=== PATIENT | male | born 1950 | race Hispanic/Latino ===

== ENCOUNTER 2017-09-27 14:56 | Outpatient (CLI) | payer OTHER, MEDICARE ==
--- NOTE | 2017-09-27 15:43 | RAD ---
RADIOGRAPH CHEST 2 VIEWS: Date: 09/27/2017 Time: 3:08 p.m. HISTORY: A 66-year-old male with cough, chest congestion, fever, and acute bronchitis (J20.9). COMPARISON: 01/05/2017 FINDINGS: There is a very elevated right hemidiaphragm. There is no air space density, pulmonary edema, pleura l effusion, or pneumothorax. Cardiac size is borderline enlarged. There is no interval change overa ll. IMPRESSION: 1. Chronically elevated right hemidiaphragm. 2. No evidence of pneumonia. ABEL [] POS: [facility]
== END 2017-09-27 14:57 | disposition home or self-care (01) ==
LOC: SCSRAD 14:56
PROVIDERS: ATTEND Family Medicine
DX: J20.9 Acute bronchitis, unspecified (principal); D89.89 Other specified disorders involving the immune mechanism, not elsewhere classified; J98.6 Disorders of diaphragm; Z92.25 Personal history of immunosuppression therapy; Z94.4 Liver transplant status; V42 Car occupant injured in collision with two- or three-wheeled motor vehicle
CPT/HCPCS: 71046

== ENCOUNTER 2018-02-08 11:22 | Outpatient (CLI) | payer OTHER, MEDICARE ==
[2018-02-08 13:19] LABS: #Eosinphils 0.1 thou/uL (0.0-0.7); #Lymphocytes 1.6 thou/uL (1.20-3.40); #Monocytes 0.6 thou/uL (0.11-0.59); #Neutrophils 3.8 thou/uL (1.40-6.50); %Basophils 0.7 % (0.0-1.0); %Eosinophils 1.9 % (0.0-10.0); %Lymphocytes 25.4 % (21.0-51.0); %Monocytes 9.9 % (0.0-10.0); %Neutrophils 62.1 % (42.0-75.0); Hemoglobin 14.9 g/dL (14.0-18.0); Mean Corpuscular HGB CONC 34.1 g/dL (32.0-36.0); Mean Corpuscular Hemoglobin 32.7 pg (27.0-31.0); Mean Corpuscular Volume 95.7 fL (78.0-98.0); Mean Platelet Volume 7.9 fL (7.4-10.4); Platelet Count 254 thou/uL (130-400); Red Blood Cell (RBC) Count 4.57 mill/uL (4.70-6.10); White Blood Cell (WBC) Count 6.2 thou/uL (4.8-10.8)
[2018-02-08 13:28] LABS: INR-International Normal Ratio 1.1; Prothrombin Time 13.8 SEC (12.0-14.7)
[2018-02-08 13:29] LABS: PTT 31.9 SEC (22.9-36.1)
--- NOTE | 2018-02-08 13:46 | RAD ---
TWO VIEWS CHEST: Date: 02-08-18 Provided Clinical History: Pre op. FINDINGS: Comparison 09-27-17. Cardiac and mediastinal silhouette is unchanged in appearance. Elevation of the right hemidiaphragm p ersists. Vascular calcification involves the aortic arch. No focal consolidation, pleural fluid or pn eumothorax apparent. IMPRESSION: Stable radiographic appearance of the chest. POS: [facility]
[2018-02-08 13:50] LABS: ALT (SGPT) 29 U/L (8-55); AST (SGOT) 30 U/L (5-34); Albumin 3.9 g/dL (3.4-4.8); Alkaline Phosphatase 115 U/L (40-150); Anion Gap 17 mmol/L (10-20); BUN (Urea Nitrogen) 33 mg/dL (8.4-25.7); Bilirubin, Total 0.7 mg/dL (0.2-1.2); Calc. Creatinine Clearance 0 mL/min (70-130); Calcium 9.5 mg/dL (7.8-10.44); Carbon Dioxide 22 mmol/L (23-31); Chloride 100 mmol/L (98-107); Estimated GFR-MDRD 43; Globulin 2.7 g/dL (2.4-3.5); Glucose 173 mg/dL (80-115); Lipase 23 U/L (8-78); Potassium 5.2 mmol/L (3.5-5.1); Protein, Total 6.6 g/dL (5.8-8.1); Sodium 134 mmol/L (136-145)
--- NOTE | 2018-02-08 17:46 | EKG ---
Test Reason : Blood Pressure : / mmHG Vent. Rate : 052 BPM Atrial Rate : 394 BPM P-R Int : 000 ms QRS Dur : 086 ms QT Int : 410 ms P-R-T Axes : 000 -17 262 degrees QTc Int : 381 ms Atrial fibrillation with slow ventricular response Low voltage QRS Cannot rule out Anterior infarct , age undetermined Abnormal ECG When compared with ECG of 14-APR-2007 08:28, Atrial fibrillation has replaced Sinus rhythm Minimal criteria for Anterior infarct are now Present Nonspecific T wave abnormality, worse in Inferior leads Confirmed by DR. Heriberto ESCALERA ([id number]) on 02/08/2018 5:45:44 PM Referred By: BRADEN Confirmed By:DR. Heriberto ESCALERA
== END 2018-02-08 11:23 | disposition home or self-care (01) ==
LOC: LABBT 11:22
PROVIDERS: ATTEND Internal Medicine Cardiovascular Disease
DX: Z01.818 Encounter for other preprocedural examination (principal); I47.2 Ventricular tachycardia
CPT/HCPCS: 71046; 80053; 83690; 85025; 85610; 85730; 93005; 93010

== ENCOUNTER 2018-02-09 05:47 | Day surgery (SDC) | payer OTHER, MEDICARE ==
[2018-02-08 13:31] VITALS: BMI 37.1
[2018-02-09 08:46] LABS: Cardiac Risk 3.4 (Less than 4.5)
[2018-02-09] MEDS ORDERED: Lidocaine 1% (PF) 30 ML VIAL ONE (11:12)
[2018-02-09 11:35] LABS: ALT (SGPT) 26 U/L (8-55); AST (SGOT) 25 U/L (5-34); Albumin 3.5 g/dL (3.4-4.8); Alkaline Phosphatase 110 U/L (40-150); Anion Gap 12 mmol/L (10-20); BUN (Urea Nitrogen) 32 mg/dL (8.4-25.7); Bilirubin, Total 0.8 mg/dL (0.2-1.2); Calc. Creatinine Clearance 68 mL/min (70-130); Calcium 9.4 mg/dL (7.8-10.44); Carbon Dioxide 25 mmol/L (23-31); Chloride 105 mmol/L (98-107); Estimated GFR-MDRD 46; Globulin 3.1 g/dL (2.4-3.5); Glucose 128 mg/dL (80-115); Potassium 4.7 mmol/L (3.5-5.1); Protein, Total 6.6 g/dL (5.8-8.1); Sodium 137 mmol/L (136-145)
[2018-02-09] MEDS ORDERED: Iopamidol 370 76% 100 ML VIAL ONE (11:43)
[2018-02-09] MEDS ORDERED: Diazepam 5 MG TAB ONE (11:58)
[2018-02-09] MEDS ORDERED: Fentanyl 100 MCG/2 ML VIAL ONE (13:38)
--- NOTE | 2018-02-09 16:06 | PRG ---
DATE OF SERVICE: 02/09/2018 SUBJECTIVE: The patient was seen and evaluated this morning prior to the procedure. His creatinine was 1.6. He decided to proceed with hydration prior to angiography. His followup creatinine was 1.5 . I also discussed drug-coated versus stent placement with his who is a nurse in addition to the patient. At this point, they prefer a drug-coated stent. They understand the risks of bleeding on aspirin, Plavix and anticoagulation therapy. Could certainly stop aspirin if needed. They do st ate after liver transplant, his liver has checked out very well. Otherwise, further recommendation p ending the above.
== END 2018-02-09 18:37 | disposition home or self-care (01) ==
LOC: CCL 05:47
PROVIDERS: ATTEND Internal Medicine Cardiovascular Disease
PROC: B2111ZZ Fluoroscopy of Multiple Coronary Arteries using Low Osmolar Contrast (ICD-10-PCS; principal; 2018-02-09)
PROC: 4A023N7 Measurement of Cardiac Sampling and Pressure, Left Heart, Percutaneous Approach (ICD-10-PCS; principal; 2018-02-09)
DX: I25.10 Atherosclerotic heart disease of native coronary artery without angina pectoris (principal); I47.2 Ventricular tachycardia; I48.1 Persistent atrial fibrillation; I10 Essential (primary) hypertension; E11.9 Type 2 diabetes mellitus without complications; E78.5 Hyperlipidemia, unspecified; E78.00 Pure hypercholesterolemia, unspecified; Z79.01 Long term (current) use of anticoagulants; Z79.4 Long term (current) use of insulin; Z79.83 Long term (current) use of bisphosphonates; Z79.899 Other long term (current) drug therapy; Z94.4 Liver transplant status
CPT/HCPCS: 36415; 71046; 76942; 80053; 80061; 83690; 85025; 85610; 85730; 93005; 93010; 93458; C1760; C1769; J1644; J2001; J3010

== ENCOUNTER 2018-06-08 06:49 | Day surgery (SDC) | payer OTHER, MEDICARE ==
[2018-06-07 13:04] VITALS: BMI 37.1
--- NOTE | 2018-06-08 10:47 | OP ---
DATE OF PROCEDURE: 06/08/2018 PROCEDURE PERFORMED: Colonoscopy with snare polypectomy. PREMEDICATION: Given by the Anesthesiology Department. PREPROCEDURE DIAGNOSIS: Colon screening. POSTPROCEDURE DIAGNOSES: 1. Transverse colon polyp, 1 cm. 2. Otherwise normal colon exam. DESCRIPTION OF PROCEDURE: Written consents were obtained prior to procedure. After adequate sedation, rectal exam performed was normal. Endoscope advanced to the cecum. The quality of the bowel prep was good. The cecum, ascending colon, hepatic flexure appeared normal. In the mid transverse, a 1 cm sessile polyp was noted. The polyp was removed with snare polypectomy by piecemeal method. The polyp was completely removed. The remainder of the transverse, splenic flexure, descending colon, and rectosigmoid colon appeared normal. Retroflexion did not show any abnormality. The patient tolerated the procedure well. ASSESSMENT: 1. 1 cm transverse polyp, status post polypectomy. 2. Otherwise normal colon exam. PLAN: Await biopsy results. Job ID: [id number]
[2018-06-08] MEDS ORDERED: Lidocaine 1% PF 5 ML VIAL ONE (14:54)
[2018-06-08] MEDS ORDERED: PROPOFOL 200 MG/20 ML VIAL ONE (14:54)
== END 2018-06-08 10:42 | disposition home or self-care (01) ==
LOC: SDC 06:49
PROVIDERS: ATTEND Internal Medicine Gastroenterology
PROC: 0DBL8ZX Excision of Transverse Colon, Via Natural or Artificial Opening Endoscopic, Diagnostic (ICD-10-PCS; principal; 2018-06-08)
DX: Z12.11 Encounter for screening for malignant neoplasm of colon (principal); D12.3 Benign neoplasm of transverse colon; I48.91 Unspecified atrial fibrillation; E11.9 Type 2 diabetes mellitus without complications; K74.60 Unspecified cirrhosis of liver; Z79.4 Long term (current) use of insulin; Z79.83 Long term (current) use of bisphosphonates; Z79.899 Other long term (current) drug therapy; Z94.4 Liver transplant status
CPT/HCPCS: 36416; 88305; J2001; J2704

== ENCOUNTER 2018-10-19 07:53 | Outpatient (CLI) | payer OTHER, MEDICARE ==
--- NOTE | 2018-10-19 08:36 | ULT ---
Bilateral renal ultrasound CLINICAL INDICATION: Elevated laboratory values. COMPARISON: None available. FINDINGS: Right kidney: There is no evidence of a renal mass, renal calculus, or hydronephrosis seen. The right kidney measures 11.4 cm x 5.9 cm. Left kidney: There is no evidence of a renal mass, calculus, hydronephrosis. The left kidney measures 10.9 cm x 5.2 cm. Urinary bladder: Incompletely distended limiting evaluation but is otherwise grossly normal in appear ance. Total urinary bladder volume is 68.8 mL on prevoid imaging. No post void residual is present. IMPRESSION: Normal-appearing bilateral kidneys without evidence of hydronephrosis. There is no post void residual .
== END 2018-10-19 07:54 | disposition home or self-care (01) ==
LOC: SCSULT 07:53
PROVIDERS: ATTEND Internal Medicine Nephrology
DX: N17.9 Acute kidney failure, unspecified (principal)
CPT/HCPCS: 76770

== ENCOUNTER 2018-10-28 08:08 | Outpatient (CLI) | payer OTHER, MEDICARE ==
--- NOTE | 2018-10-28 08:24 | RAD ---
RADIOGRAPH CHEST 2 VIEW: DATE: 10/28/2018 TIME: 8:16 AM HISTORY: 67-year-old male with dyspnea COMPARISON: 02/08/2019 FINDINGS: Again noted is the elevated right hemidiaphragm and associated, probably chronic right basilar subseg mental atelectasis. Cardiac size is at the upper limits of normal or slightly enlarged. Interstitial markings are diffusely prominent. This appears slightly greater than on the prior study, but the difference may or may not be technical. No acute consolidation. No large or moderate sized pleural effusion. No pneumothorax. IMPRESSION: 1. Chronically elevated right hemidiaphragm. 2. Borderline or mild cardiomegaly. 3. Prominent interstitial markings
== END 2018-10-28 08:09 | disposition home or self-care (01) ==
LOC: BICRAD 08:08
PROVIDERS: ATTEND Internal Medicine Cardiovascular Disease
DX: R06.02 Shortness of breath (principal); J98.4 Other disorders of lung; J98.6 Disorders of diaphragm
CPT/HCPCS: 71046

== ENCOUNTER 2018-11-28 18:00 | Outpatient (CLI) | payer OTHER, MEDICARE | END 2018-11-28 18:01 | disposition home or self-care (01) | LOC: SLEEPLAB 18:00 | PROVIDERS: ATTEND Internal Medicine Critical Care Medicine | DX: G47.33 Obstructive sleep apnea (adult) (pediatric) (principal) | CPT/HCPCS: 95806 ==

== ENCOUNTER 2018-12-15 08:31 | Outpatient (CLI) | payer OTHER, MEDICARE ==
--- NOTE | 2018-12-15 11:23 | MRI ---
MRI ABDOMEN WITHOUT CONTRAST AND MRCP: HISTORY: Abnormal liver function tests. Patient had liver transplant COMPARISON: None FINDINGS: There is artifact due to patient breathing during the exam.This reduces the sensitivity of the study. The patient is post cholecystectomy. No intra or extrahepatic biliary ductal dilatation is seen. No d efinite hepatic mass is seen. The spleen, pancreas, adrenal glands and right kidney are normal. Tiny cysts are seen in the left kid evelin. No ascites or lymphadenopathy is noted in the abdomen. No aneurysmal dilatation of the abdominal aorta is identified. The bone marrow signal is normal. There are degenerative changes in th e spine. Incidental note is made of a small right and tiny left pleural effusion. IMPRESSION: No significant findings are seen in the abdomen.
== END 2018-12-15 08:32 | disposition home or self-care (01) ==
LOC: SCSMRI 08:31
PROVIDERS: ATTEND Internal Medicine Hepatology
DX: Z48.23 Encounter for aftercare following liver transplant (principal); R94.5 Abnormal results of liver function studies
CPT/HCPCS: 74181

== ENCOUNTER 2018-12-15 19:30 | Outpatient (CLI) | payer OTHER, MEDICARE | END 2018-12-15 19:31 | disposition home or self-care (01) | LOC: SLEEPLAB 19:30 | PROVIDERS: ATTEND Internal Medicine Critical Care Medicine | DX: G47.33 Obstructive sleep apnea (adult) (pediatric) (principal); G47.31 Primary central sleep apnea; R06.3 Periodic breathing; I48.91 Unspecified atrial fibrillation | CPT/HCPCS: 95811 ==

== ENCOUNTER 2018-12-27 19:30 | Outpatient (CLI) | payer OTHER, MEDICARE | END 2018-12-27 19:31 | disposition home or self-care (01) | LOC: SLEEPLAB 19:30 | PROVIDERS: ATTEND Internal Medicine Critical Care Medicine | DX: G47.33 Obstructive sleep apnea (adult) (pediatric) (principal); E66.9 Obesity, unspecified; G47.31 Primary central sleep apnea; R06.3 Periodic breathing | CPT/HCPCS: 95811 ==

== ENCOUNTER 2019-01-13 11:29 | Outpatient (CLI) | payer OTHER, MEDICARE ==
--- NOTE | 2019-01-13 14:15 | RAD ---
PA AND LATERAL CHEST: 01/13/19 HISTORY: Cough and wheezing. COMPARISON: A 10/28/18 study. Heart size is enlarged. There is elevation of the right hemidiaphragm. Parenchymal changes in the rig ht base appears similar to the prior exam. Perihilar markings appear slightly more prominent suggesti ng some element of edema. IMPRESSION: Cardiomegaly with suggestion of some mild edema changes. POS: [facility]
== END 2019-01-13 11:30 | disposition home or self-care (01) ==
LOC: BICRAD 11:29
PROVIDERS: ATTEND Family Medicine
DX: R06.09 Other forms of dyspnea (principal); R06.2 Wheezing; I51.7 Cardiomegaly
CPT/HCPCS: 71046

== ENCOUNTER 2019-01-19 09:30 | Inpatient (IN) | payer OTHER, MEDICARE ==
[2019-01-19 10:12] LABS: #Basophils 0.1 thou/uL (0.0-0.2); #Eosinphils 0.3 thou/uL (0.0-0.7); #Lymphocytes 0.4 thou/uL (1.20-3.40); #Monocytes 0.5 thou/uL (0.11-0.59); %Basophils 1.2 % (0.0-1.0); %Lymphocytes 6.3 % (21.0-51.0); %Monocytes 7.4 % (0.0-10.0); %Neutrophils 80.2 % (42.0-75.0); Hemoglobin 10.3 g/dL (14.0-18.0); Mean Corpuscular HGB CONC 31.4 g/dL (32.0-36.0); Mean Platelet Volume 6.8 fL (7.4-10.4); Platelet Count 319 thou/uL (130-400); RBC Distribution Width 17.1 % (11.5-14.5); Red Blood Cell (RBC) Count 3.84 mill/uL (4.70-6.10); White Blood Cell (WBC) Count 6.2 thou/uL (4.8-10.8)
[2019-01-19 10:23] LABS: ALT (SGPT) 23 U/L (8-55); AST (SGOT) 37 U/L (5-34); Albumin 3.2 g/dL (3.4-4.8); Alkaline Phosphatase 236 U/L (40-150); Anion Gap 18 mmol/L (10-20); BUN (Urea Nitrogen) 41 mg/dL (8.4-25.7); Bilirubin, Total 0.5 mg/dL (0.2-1.2); CK (CPK) 33 U/L (30-200); Calc. Creatinine Clearance 0 mL/min (70-130); Calcium 10.1 mg/dL (7.8-10.44); Carbon Dioxide 26 mmol/L (23-31); Chloride 85 mmol/L (98-107); Estimated GFR-MDRD 31; Globulin 3.9 g/dL (2.4-3.5); Glucose 211 mg/dL (80-115); Lipase 21 U/L (8-78); Potassium 3.8 mmol/L (3.5-5.1); Protein, Total 7.1 g/dL (5.8-8.1); Sodium 125 mmol/L (136-145)
[2019-01-19] MEDS ORDERED: Furosemide 20 MG/2 ML VIAL ONE (10:37)
[2019-01-19] MEDS ORDERED: Nitroglycerin 2% Ointment 1 INCH/1 GM Packet ONE (10:37)
[2019-01-19] MEDS ORDERED: Aspirin Chewable 81 MG TAB ONE (10:37)
[2019-01-19 10:41] LABS: CKMB 1.7 ng/mL (0-6.6)
--- NOTE | 2019-01-19 11:05 | RAD ---
RADIOGRAPH CHEST 1 VIEW: Date: 01/19/2019. Time: 10:01 a.m. HISTORY: A 68-year-old male with dyspnea. COMPARISON: 01/13/2019. FINDINGS: There has been interval increase in opacification of the lower half to 2/3 of the right lung. Interv al worsening of silhouetting of the left hemidiaphragm with worsening aeration of the left base. Car diomegaly again noted. Pulmonary venous congestion. Central pulmonary interstitial edema. IMPRESSION: 1. Evidence for congestive heart failure: bilateral pleural effusions (right greater than left), car diomegaly, and pulmonary interstitial edema. 2. Large region of consolidation at right mid and lower lung zones: probably atelectasis, although i t is difficult to rule out pneumonia. 3. Interval worsening of aeration of left lung base. JN [] POS: [facility]
[2019-01-19 13:37] LABS: Troponin I 0.073 ng/mL (< 0.028)
[2019-01-19] MEDS ORDERED: Ondansetron ODT 4 MG TAB PO PRN (13:56)
[2019-01-19] MEDS ORDERED: Dextrose 5% in Water 1,000 ML IV PRN (14:01)
[2019-01-19] MEDS ORDERED: Dextrose 50% Abboject 50 ML SYRINGE SLOW IVP PRN (14:01)
[2019-01-19] MEDS ORDERED: Furosemide 100 MG/10 ML VIAL SLOW IVP SCH (14:15)
[2019-01-19] MEDS ORDERED: HumaLOG 300 UNITS/3 ML VIAL SC PRN (15:00)
[2019-01-19 16:36] LABS: Troponin I 0.073 ng/mL (< 0.028)
[2019-01-19] MEDS: Insulin Glargine 12 UNITS in Pre-Filled Syringe 1 EACH SC SCH (20:47)
[2019-01-19] MEDS: Apixaban 2.5 MG TAB PO SCH ×2 (20:49→21:00)
[2019-01-19] MEDS: Multivit, Therapeutic 1 TAB PO SCH (20:52)
[2019-01-19] MEDS: Magnesium Oxide 400 MG TAB PO SCH ×2 (20:52→20:53)
[2019-01-19] MEDS ORDERED: INSULIN DETEMIR 12 UNIT SQ SCH (21:00)
[2019-01-19] MEDS ORDERED: Tacrolimus 1 MG CAP PO SCH (21:00)
--- NOTE | 2019-01-19 21:20 | HP ---
HISTORY OF PRESENT ILLNESS: The patient is a 68-year-old male, who has known history of liver transplant. He has most recently been diagnosed of an atrial fibrillation. He has had a history now of some recurrent edema of his lower extremities. Over the last several months, his , who is an ICU nurse at [employer], has noted increasing edema, shortness of breath. He has been evaluated by Cardiology as well as Pulmonology. No source of the edema could really be identified. He has continued to have progressive edema with progressive dyspnea. He has been seen in my office on one occasion. It was recommended he try metolazone. This was done through the auspices of Nephrology Service. He really has not had much relief and his noticed that his edema seems to be increasing. He is becoming more short of breath with exertion. The patient denies any chest pain at this time. No fever has been noted. No productive coughing. He was seen and evaluated in the emergency room at [facility] today. This has revealed a chest x-ray consistent with bilateral pulmonary edema and bilateral pleural effusions noted as well as renal insufficiency as well as a significant elevated BNP. He has received one dose of Lasix here in the emergency room. As noted, he has a history of previous liver transplant. His liver status has been deemed to be normal by his transplant doctors. There is no evidence of any rejection. He also has a history of atrial fibrillation, type 2 diabetes mellitus. He notes no other medical complaints. No fever has otherwise been noted. It is noted he had a renal ultrasound in September 2018, which showed no evidence of any hydronephrosis. He notes no urinary issues at this time. ALLERGIES: HE HAS NO KNOWN ALLERGIES. CURRENT MEDICATIONS: 1. Janumet one tablet p.o. b.i.d. 2. Prograf b.i.d. 3. Crestor 10 mg daily. 4. Magnesium oxide 400 mg t.i.d. 5. Lisinopril 10 mg daily. 6. Levemir insulin 12 units q.p.m. and 7 units q.a.m. 7. NovoLog FlexPen 8 units t.i.d. 8. Lasix 40 mg daily. 9. Calcium carbonate one tablet p.o. b.i.d. 10. Eliquis 5 mg b.i.d. 11. Amlodipine 5 mg daily. 12. Alendronate. PAST MEDICAL HISTORY: Significant for the above-noted liver transplant. He has a history of atrial fibrillation. He also has a history of a cardiomyopathy documented. PAST SURGICAL HISTORY: Positive for as I said that is noted from liver transplant, right total knee replacement. SOCIAL AND PERSONAL HISTORY: He is retired. He does not smoke. Does not drink alcohol at this time. PHYSICAL EXAMINATION: VITAL SIGNS: His blood pressure is 113/74, pulse is 80 and regular, temperature 98.6, O2 saturations 88% on room air. GENERAL: He is alert and active, does not appear to be in any significant distress, although he does sit in a chair. HEENT: Normocephalic. Sclerae and conjunctivae clear. NECK: Supple. Full range of motion. No masses. No bruits are auscultated. LUNGS: Bilateral breath sounds somewhat decreased on the right than on the left. HEART: Reveals an irregularly irregular rhythm without murmurs, gallops, or rubs. ABDOMEN: Soft. Bowel sounds are present and active. There is no evidence of any ascitic fluid. EXTREMITIES: Show 1 to 2+ edema, equal bilaterally. The edema extends up to the knees. IMAGING DATA: Chest x-ray shows evidence of congestive heart with bilateral pleural effusions, right greater than left. LABORATORY DATA: Hemoglobin 10.3, hematocrit 33.0, white blood count 6.2. Sodium 125, potassium 3.8, chloride 85, CO2 of 26, BUN 41, creatinine 2.11. Troponin 0.078 and 0.073. BNP 2749.8. IMPRESSION: This is a 68-year-old male, who has components of congestive heart failure with elevated BNP, bilateral pleural effusions that seems not to be responding to outpatient therapy of diuresis. PLAN: 1. The patient will be admitted. 2. Cardiac consult. 3. Renal consult. 4. We will give 80 mg of IV Lasix while in the ER today. Further treatment recommendations per specialty consult. Job ID: [id number]
[2019-01-20 05:13] LABS: #Eosinphils 0.4 thou/uL (0.0-0.7); #Lymphocytes 0.5 thou/uL (1.20-3.40); #Monocytes 0.6 thou/uL (0.11-0.59); #Neutrophils 5.1 thou/uL (1.40-6.50); %Basophils 0.2 % (0.0-1.0); %Eosinophils 6.6 % (0.0-10.0); %Lymphocytes 7.9 % (21.0-51.0); %Monocytes 9.2 % (0.0-10.0); %Neutrophils 76.1 % (42.0-75.0); Mean Corpuscular Hemoglobin 28.8 pg (27.0-31.0); Mean Corpuscular Volume 87.2 fL (78.0-98.0); Mean Platelet Volume 6.6 fL (7.4-10.4); Platelet Count 300 thou/uL (130-400); RBC Distribution Width 16.3 % (11.5-14.5); Red Blood Cell (RBC) Count 3.48 mill/uL (4.70-6.10); White Blood Cell (WBC) Count 6.8 thou/uL (4.8-10.8)
[2019-01-20 05:33] LABS: Anion Gap 15 mmol/L (10-20); BUN (Urea Nitrogen) 44 mg/dL (8.4-25.7); Calc. Creatinine Clearance 49 mL/min (70-130); Calcium 9.9 mg/dL (7.8-10.44); Carbon Dioxide 27 mmol/L (23-31); Chloride 85 mmol/L (98-107); Estimated GFR-MDRD 35; Glucose 120 mg/dL (80-115); Potassium 3.2 mmol/L (3.5-5.1); Sodium 124 mmol/L (136-145)
[2019-01-20] MEDS: Apixaban 2.5 MG TAB PO SCH (08:31)
[2019-01-20] MEDS: Potassium Chloride 20 MEQ TAB PO SCH (08:31)
[2019-01-20] MEDS: Amlodipine 5 MG TAB PO SCH (08:32)
[2019-01-20] MEDS: Magnesium Oxide 400 MG TAB PO SCH ×3 (08:32→20:21)
[2019-01-20] MEDS: Insulin Glargine 7 UNITS in Pre-Filled Syringe 1 EACH SC SCH (08:37)
[2019-01-20] MEDS: Calcitriol 0.25 MCG CAP PO SCH (08:37)
[2019-01-20] MEDS ORDERED: INSULIN DETEMIR 7 UNIT SQ SCH (09:00)
[2019-01-20] MEDS ORDERED: Tacrolimus 1 MG CAP PO SCH (09:00)
[2019-01-20] MEDS ORDERED: Lisinopril 10 MG TAB PO SCH (09:00)
[2019-01-20] MEDS: Albumin 25% 25 GM/100 ML BOT IVPB SCH ×3 (11:15→21:25)
[2019-01-20] MEDS ORDERED: Sodium Chloride 0.9% 500 ML IV SCH (11:15)
--- NOTE | 2019-01-20 13:41 | CON ---
DATE OF CONSULTATION: 01/20/2019 SERVICE: Pulmonary Medicine. REASON FOR CONSULTATION: Abnormal chest x-ray. HISTORY OF PRESENT ILLNESS: The patient is a 68-year-old white male with past medical history significant for chronic renal failure. He ultimately got a kidney transplanted. He is on chronic suppressive therapy. Over the past 4 to 6 months, the patient has had progressive swelling of the lower extremities, resulting in increasing dyspnea that limits his activity. He got to the point where he is very difficult to manage in the outpatient setting, and the patient was asked to present to the emergency department to see whether or not we could facilitate fluid removal on the inpatient setting. He denies any current chills or fevers. He is not coughing up any purulent material. He recently got diagnosed with sleep apnea and underwent a titration study suggesting that he would benefit from BiPAP with a backup. He has been on this for about 14 days now. Since being on this BiPAP, he has had a profound improvement in mentation, though the lower extremity swelling and shortness of breath are still progressed. PAST MEDICAL HISTORY: 1. History of cirrhosis, status post liver transplantation. 2. Atrial fibrillation. 3. Chronic systolic heart failure. 4. Obstructive sleep apnea. 5. Central sleep apnea with Ra-Gallagher respiratory pattern of breathing. 6. Nephrotic-range proteinuria. PAST SURGICAL HISTORY: 1. Liver transplantation. 2. Right total knee replacement. SOCIAL HISTORY: The patient does not use any current alcohol, tobacco, or illicit drug use. He is currently retired. He has no exposure to chemicals, dust, asbestos, or tuberculosis. FAMILY HISTORY: Noncontributory. ALLERGIES: NO KNOWN DRUG ALLERGIES. MEDICATIONS: List of his inpatient medications was reviewed. No specific updates were made at this time. REVIEW OF SYSTEMS: General; head, ears, eyes, nose, throat; cardiovascular; respiratory; GI; ; musculoskeletal; neurologic; and skin are negative except as mentioned is the HPI. PHYSICAL EXAMINATION: VITAL SIGNS: Afebrile, pulse 79, blood pressure 118/70, respirations 18, and saturation 96% with 3 L nasal cannula delivered via BiPAP. HEENT: Normocephalic and atraumatic. Sclerae white. Conjunctivae pink. Oral mucosa is moist without lesions. LUNGS: Reduced air entry on the right. There is no prolonged expiratory phase. Crackles are identified. HEART: Normal rate and regular. ABDOMEN: Soft. Distended. Bowel sounds are present. MUSCULOSKELETAL: No cyanosis or clubbing. There is diffuse 3 to 4+ pitting in the bilateral lower extremities. NEUROLOGIC: Grossly nonfocal. LABORATORY DATA: Sodium 124, potassium 3.2. Creatinine 1.93. Basic metabolic profile is otherwise unremarkable. Troponin is stable at 0.073, BNP 2700. Albumin 3.2 and lipase 21. Liver function studies are essentially unremarkable otherwise. Most recent coags showed a normal INR of 1.1. IMAGING: Chest x-ray demonstrates signs of significant volume overload. There are bilateral pleural effusions, but the right side appears to be more impressive. ASSESSMENT: 1. Acute on chronic hypoxic respiratory failure. 2. Pleural effusions, bilateral. 3. Obstructive sleep apnea/central sleep apnea, much improved with noninvasive therapy. 4. Pulmonary hypertension. 5. Acute on chronic systolic heart failure. 6. Atrial fibrillation. 7. Nephrotic syndrome. DISCUSSION AND PLAN: We can launch into a pulmonary hypertension investigation. At this point, I cannot do a V/Q scan because the patient's chest x-ray is significantly abnormal. We will work on diuresing him to euvolemia. I will start with the serologies for PH. I will talk to Mr. Gant and his (Dalila) about the risks and benefits of pursuing a thoracentesis to see if we can facilitate fluid removal and improve his breathing. If they are minimal, I think it would be reasonable to do for diagnostic and therapeutic purposes. He is currently on Eliquis, and for an elective procedure, I would prefer to hold this for a couple of days. Pulmonary will continue to follow the patient intermittently while he remains in the hospital. 70 minutes have been devoted to this patient in various activities. I personally reviewed all imaging studies and laboratory data noted within this document. For fifty percent of this time, I was interacting with the patient at the bedside or coordinating care with the care team. For the remainder of the time I was immediately available to the patient in the hospital unit. Job ID: [id number] MTDD
--- NOTE | 2019-01-20 13:51 | PRG ---
DATE OF SERVICE: 01/20/2019 SUBJECTIVE: Mr. Gant is resting well. He still complains of edema to his feet. He notes no chest pain. OBJECTIVE: VITAL SIGNS: Temperature 98.6, O2 saturations 95% on 3 L, BP 130/66. LUNGS: Reveal decreased breath sounds at each base. HEART: Reveals an irregularly irregular rhythm without murmur, gallops, or rubs. LABORATORY DATA: Hemoglobin 10.0, hematocrit 38.4. Sodium 124, potassium 3.2, chloride 85, CO2 of 27, BUN 44, creatinine 1.93. He is in some negative fluid balance as noted by his I and O. IMPRESSION: 1. Pulmonary edema. 2. Atrial fibrillation. 3. Status post hepatic transplant. PLAN: We will await further input from Cardiology and Nephrology regarding his edema status. Job ID: [id number]
--- NOTE | 2019-01-20 14:25 | CON ---
DATE OF CONSULTATION: HISTORY OF PRESENT ILLNESS: Mr. Gant is a 68-year-old white male with known history of status post liver transplant secondary to fatty liver, chronic renal failure, and was admitted due to progressive azotemia. Shortness of breath has been worsening. He has been unresponsive to his a diuretic regimen of Lasix 80 mg p.o. b.i.d. with metolazone. For that reason, he was admitted for further evaluation of the shortness of breath. We are being consulted for his acute kidney injury/chronic renal failure. REVIEW OF SYSTEMS: Positive for chronic leg edema. Positive for progressive shortness of breath on exertion. No chest pain. No diarrhea. No constipation. No productive cough. No fever or chills. No syncopal episode. No abdominal pain. Appetite and energy level are decreased. No gross hematuria. No dysuria. No urinary frequency. No productive cough. HOME MEDICATIONS: Included: 1. Janumet 50/100 mg b.i.d. 2. Alendronate 70 mg q. week. 3. Prograf 1 mg p.o. b.i.d. 4. Lisinopril 10 mg tablet once a day. 5. Norvasc 5 mg once a day. 6. Eliquis 5 mg p.o. b.i.d. 7. Multivitamin daily. 8. Calcium with vitamin D 1 tab b.i.d. 9. Calcitriol 0.25 mcg daily. 10. Crestor 10 mg at bedtime. 11. Magnesium 500 mg at bedtime. 12. Lasix 80 mg p.o. b.i.d. 13. Zaroxolyn 5 mg daily. 14. Novolin R as directed. 15. Lantus as directed. PAST MEDICAL HISTORY: 1. Status post liver failure secondary to fatty liver, status post liver transplant. 2. Status post acute kidney injury. 3. Type 2 diabetes mellitus. 4. Hypertension. 5. Chronic AFib. 6. (?) Degenerative joint disease. PAST SURGICAL HISTORY: Status post liver transplant 11 years ago, status post cardiac cath, status post colonoscopy, status post bilateral hip replacement, status post right knee replacement, status post abdominal hernia repair, status post right inguinal hernia repair, status post upper GI endoscopy with ERCP, and status post bilateral cataract surgery. SOCIAL HISTORY: He is , lives in [place]. Two children. 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 Chronic tobacco use for 10 years. Status post blood transfusion. Education, high school. No smoking. No alcohol intake. No IV drug abuse. FAMILY HISTORY: No family history of ESRD. ALLERGIES: NONE. TRAUMA: None. IMMUNIZATIONS: Up-to-date. HOSPITALIZATIONS: Please see past medical history. PHYSICAL EXAMINATION: VITAL SIGNS: Blood pressure is 118/70, heart rate 67, respiratory rate 18, temperature 98.6, and pulse ox 95%. GENERAL: Noted to be awake, alert, supine, not in overt distress, morbidly obese. SKIN: Adequate turgor. HEENT: Pinkish conjunctivae. Anicteric sclerae. No neck mass. No carotid bruits. No JVD. CHEST: No deformities. LUNGS: Clear breath sounds. No wheezing. No crackles. HEART: Normal sinus rhythm. No murmur. No gallops. No rubs. ABDOMEN: Globular, soft, nontender. No masses. EXTREMITIES: Positive for edema. NEUROLOGIC: Awake, oriented to 3 spheres. Moving all extremities. No tremors. No asterixis. No ataxia. DIAGNOSTIC DATA: Laboratories of 01/20/2019: White count 6.8, hemoglobin 10. Sodium 124, potassium 3.2, chloride 85, carbon dioxide 27, BUN 44, creatinine 1.93, glucose 120, and calcium 9.9. Troponin I 0.073. BNP is 2749. Chest x-ray of 01/19/2019 shows interval worsening of aeration at the left lung base. The lower half of the right lung showed interval increase in opacification. There is evidence of CHF. ASSESSMENT AND PLAN: 1. Progressive shortness of breath. The patient is actually not responsive to maximal doses of his Lasix. Due to the congestive heart failure, we will continue with Lasix 80 mg IV q.12. In addition, I have started albumin infusion 25 g IV q.6 to enhance the efficacy of the Lasix as well as to maintain his intravascular volume while he is being diuresed. 2. I have not excluded the possibility of adding Zaroxolyn with this patient. 3. Acute kidney injury/chronic renal failure. Creatinine 1.9. He is actually slightly improved compared to a few weeks ago. This is a reflection of the current diuretic regimen. There is no indication for any dialytic intervention. 4. Status post liver transplant, currently on Prograf. 5. Congestive heart failure/decreased ejection fraction. Cardiology has been consulted. In addition, pulmonary consult with Dr. Alfaro has also been done due to the progressive shortness of breath and finding of right bilateral pleural effusion. Overall, agree with current management. Job ID: [id number]
[2019-01-20] MEDS: Furosemide 100 MG/10 ML VIAL SLOW IVP SCH (14:59)
--- NOTE | 2019-01-20 16:49 | CON ---
DATE OF CONSULTATION: REASON FOR CONSULTATION: Shortness of breath, lower extremity edema. HISTORY OF PRESENT ILLNESS: Mr. Gant is a very pleasant 68-year-old gentleman whom I have seen and evaluated in the past. He has a previous history of liver transplant in addition to severe pulmonary hypertension and severe obstructive sleep apnea. He also has developed renal insufficiency. He recently developed worsening lower extremity edema that was not responsive to Lasix. He also developed shortness of breath. He has been using his CPAP over the last several weeks. No chest pain or pressure noted. He did receive a dose of Lasix yesterday with minimal response. PAST MEDICAL HISTORY: Hypertension, atrial fibrillation, nonsustained VT, hyperlipidemia, diabetes mellitus, bradycardia, [id number] CAD, obstructive sleep apnea, liver transplant, severe pulmonary hypertension, hernia repair, vasectomy, hip replacement, right total knee surgery, and cataract removal. HOME MEDICATIONS: Include: 1. Calcarb. 2. Calcitriol. 3. Janumet. 4. Lasix. 5. Alendronate. 6. Norvasc. 7. Multivitamin. 8. Humalog. 9. Crestor. 10. Lantus. 11. Magnesium. 12. Prograf. 13. Eliquis. 14. Tylenol. SOCIAL HISTORY: No current tobacco or alcohol use. ALLERGIES: NONE. REVIEW OF SYSTEMS: A 10-point review of systems is reviewed and as above, otherwise negative. PHYSICAL EXAMINATION: GENERAL: He is currently wearing CPAP. VITAL SIGNS: Blood pressure 118/70, pulse 79, and temperature afebrile. NEUROLOGIC: The patient is alert and oriented x3 with no focal neurologic deficits. HEENT: Sclerae without icterus. Mouth has moist mucous membranes with normal pallor. NECK: No JVD. Carotid upstroke brisk. No bruits bilaterally. LUNGS: Crackles noted bilaterally. BACK: No scoliosis or kyphosis. CARDIAC: Regular rate and rhythm with normal S1 and S2. No S3 or S4 noted. No significant rubs, murmurs, thrills, or gallops noted throughout the precordium. PMI is not displaced. There is no parasternal heave. ABDOMEN: Soft, nontender, nondistended. No peritoneal signs present. No hepatosplenomegaly. No abnormal striae. EXTREMITIES: 2+ to 3+ pitting edema. SKIN: No gross abnormalities. PERTINENT LABORATORY DATA: Hemoglobin 10.0 and hematocrit 30.4. Creatinine 1.93. Peak troponin 0.073. BNP of 2749. IMPRESSION: 1. Lower extremity edema. 2. [id number]-[id number] cardiomyopathy. 3. Liver transplant. 4. Severe pulmonary hypertension. 5. Acute on chronic renal insufficiency. RECOMMENDATIONS: Lower extremity edema, likely multifactorial. He does have a history of [id number] cardiomyopathy and left ventricular ejection fraction of 40%. He does have crackles noted bilaterally. He also has severe pulmonary hypertension and recently, has received treatment for sleep apnea. His albumin level is also on the low end. We will leave Lasix at the discretion of Dr. Israel Willis given renal insufficiency. His GFR is 35. He did receive 80 mg of Lasix. May consider Zaroxolyn. May also consider low-dose Dobutrex if he does not diurese overnight. We will follow. Job ID: [id number]
[2019-01-20 17:57] LABS: Creatinine, Urine 77.33 mg/dL (63-166)
[2019-01-20] MEDS: Insulin Regular 300 UNITS/3 ML VIAL SC PRN (18:25)
[2019-01-20] MEDS: Multivit, Therapeutic 1 TAB PO SCH (20:21)
[2019-01-20] MEDS: Tacrolimus 1 MG CAP PO SCH ×2 (20:21→20:24)
[2019-01-20] MEDS: Rosuvastatin 10 MG TAB PO SCH (20:21)
[2019-01-20] MEDS: Insulin Glargine 12 UNITS in Pre-Filled Syringe 1 EACH SC SCH (20:22)
[2019-01-21] MEDS: Albumin 25% 25 GM/100 ML BOT IVPB SCH ×2 (05:08→11:54)
[2019-01-21] MEDS: Furosemide 100 MG/10 ML VIAL SLOW IVP SCH ×3 (05:08→21:22)
[2019-01-21 07:26] LABS: INR-International Normal Ratio 1.7
[2019-01-21 07:27] LABS: PTT 47.8 SEC (22.9-36.1)
[2019-01-21] MEDS ORDERED: Potassium Chloride 20 MEQ TAB PO SCH (07:30)
[2019-01-21 07:39] LABS: Anion Gap 17 mmol/L (10-20); BUN (Urea Nitrogen) 50 mg/dL (8.4-25.7); Calc. Creatinine Clearance 49 mL/min (70-130); Calcium 10.5 mg/dL (7.8-10.44); Carbon Dioxide 26 mmol/L (23-31); Chloride 85 mmol/L (98-107); Estimated GFR-MDRD 34; Glucose 142 mg/dL (80-115); Magnesium 2.5 mg/dL (1.6-2.6); Potassium 3.3 mmol/L (3.5-5.1); Sodium 125 mmol/L (136-145)
[2019-01-21 07:57] LABS: HIV (1/2) Antibody/Antigen Non-Reactive (NonReactive); HIV 1/2 INDEX 0.15 S/CO (<1.00)
[2019-01-21] MEDS ORDERED: Metolazone 2.5 MG TAB PO SCH (08:30)
[2019-01-21] MEDS: Potassium Chloride 20 MEQ TAB PO SCH (08:35)
[2019-01-21] MEDS: Metolazone 2.5 MG TAB PO SCH (08:35)
[2019-01-21] MEDS: Amlodipine 5 MG TAB PO SCH (08:36)
[2019-01-21] MEDS: Calcitriol 0.25 MCG CAP PO SCH (08:36)
[2019-01-21] MEDS: Tacrolimus 1 MG CAP PO SCH ×2 (08:37→20:14)
--- NOTE | 2019-01-21 08:51 | RAD ---
Exam: Chest one view HISTORY:Fluid overload Comparison: 01/19/2019 FINDINGS: Cardiac silhouette:Cardiomegaly Aorta: Unremarkable Pulmonary vessels: Prominent Costophrenic angles: Persistent bilateral pleural effusions, right greater than left LUNGS: Persistent lung parenchymal opacification. Pneumothorax: None Osseous abnormalities: None IMPRESSION: Worsening congestive heart failure.
[2019-01-21] MEDS: Insulin Glargine 7 UNITS in Pre-Filled Syringe 1 EACH SC SCH (08:53)
--- NOTE | 2019-01-21 09:11 | PRG ---
DATE OF SERVICE: 01/21/2019 PRIMARY CARE PHYSICIAN: Dr. Benjie Juan. SUBJECTIVE: The patient continues to feel short of breath with increased edema of his lower extremity and throughout his body, had been followed by Cardiology, Nephrology and Pulmonary. Dr. Redding wanted to transfer him to the ICU due to increased shortness of breath. OBJECTIVE: VITAL SIGNS: Temperature 98, pulse 77, respirations 20, blood pressure 126/79, pulse ox is 93% on 3 L nasal cannula. GENERAL: He is awake and alert. He does appear anxious. Positive for conversational dyspnea. NECK: Supple. HEART: Regular rate and rhythm. LUNGS: With rales at the bases. Decreased breath sounds. ABDOMEN: Obese. EXTREMITIES: With 3 to 4+ edema. LABORATORY DATA: Sodium 125, potassium 3.3, chloride 85, CO2 of 26, BUN and creatinine 50 and 1.94 with a GFR of 34, serum glucose of 142, calcium 10.5 and magnesium of 2.5. Accu-Cheks 165, 254, 191. IMAGING: Chest x-ray from 2 days ago reveals evidence of congestive heart failure with bilateral pleural effusions. Cardiomegaly and interstitial edema. Large consolidation of the right, mid and lower lung zones. Worsening aeration of the left base. ASSESSMENT AND PLAN: This is a 68-year-old gentleman, status post liver transplant, admitted for increased edema, increased shortness of breath, acute- on-chronic kidney failure and congestive heart failure. 1. Congestive heart failure. Continuing diuresis. Cardiology is adding Zaroxolyn since he is on the maximum dose of Lasix for his acute on chronic systolic heart failure. 2. Nephrotic syndrome. Appreciate Dr. Willis and Nephrology team. He is getting IV albumin. 3. Status post liver transplant, on Prograf for anti-rejection medications. 4. Severe pulmonary hypertension, receiving CPAP at night. May benefit from BiPAP during the day, if worsens. 5. Type 2 diabetes. We will continue insulin sliding scale. Job ID: [id number]
[2019-01-21 09:19] LABS: ALT (SGPT) 16 U/L (8-55); AST (SGOT) 20 U/L (5-34); Albumin 4.3 g/dL (3.4-4.8); Alkaline Phosphatase 235 U/L (40-150); Bilirubin, Direct 0.6 mg/dL (0.1-0.3); Protein, Total 7.4 g/dL (5.8-8.1)
--- NOTE | 2019-01-21 10:19 | ULT ---
EXAM: Bilateral lower extremity venous duplex: Deep veins evaluated with color Doppler, spectral analysis, and compression. INDICATIONS: Bilateral lower extremity pain and edema. FINDINGS: Deep veins interrogated include common femoral vein, femoral vein, popliteal vein, and post erior tibial vein. These veins show normal compression and blood flow. No evidence of DVT. Hypoechoic focus of left popliteal fossa approximating 5 cm, indicative of complex Montanez cyst. Nonspecific waveform irregularity is noted. IMPRESSION: Negative Bilateral venous duplex exam. 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 Correlate clinically.
--- NOTE | 2019-01-21 10:36 | PRG ---
DATE OF SERVICE: 01/21/2019 HISTORY OF PRESENT ILLNESS: This is a 68-year-old gentleman, status post to the ICU after start having more difficulty breathing, shortness of breath, generalized anasarca. 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 The patient is status post liver transplant secondary to fatty liver, chronic renal failure. He is admitted for progressive azotemia. X-ray today shows bilateral pleural effusion, left greater than right. Given some additional Lasix. Started on metolazone. He is now having an ultrasound done of his leg. He is already on anticoagulation. OBJECTIVE: VITAL SIGNS: Saturations are 92% on 2 L, blood pressure 113/76, pulse 64, respiratory rate 18. GENERAL: 2+ ankle edema. CHEST: Decreased breath sounds. No wheezing. CARDIAC: Normal S1 and S2. No gallops. ABDOMEN: Soft. No masses. LABORATORY DATA: BUN and creatinine are 50 and 1.94. Sodium 125, glucose 165, calcium 10.5, alkaline phos slightly elevated. IMPRESSION: Progressive respiratory failure secondary to congestive heart failure complicated by fluid overload and renal failure, sleep apnea, status post liver transplant. PLAN: I am concerned if we tap his left chest going to come right back. Best option is to try diuresing as much as possible. Continue CPAP from home. Empiric neb treatments. We will follow up. He is a full code. One-half hour of critical time. Job ID: [id number]
[2019-01-21 11:26] LABS: CO2 Tension 38.7 mmHg (35.0-45.0); Calcium, Ionized 1.19 mmol/L (1.12-1.30); Carboxyhemoglobin (COHb) 1.4 gm% (0.0-3.0); Hemoglobin (Hb) 10.5 g/dL (14.0-18.0); pH, Arterial 7.46 (7.35-7.45)
[2019-01-21 11:30] LABS: O2 Tension (PaO2) 53.2 mmHg (> 70.0)
[2019-01-21 11:31] LABS: ALV-art Gradient 183.625 (0-20); Puncture Site L.R.
--- NOTE | 2019-01-21 12:08 | CON ---
DATE OF CONSULTATION: 01/21/2019 HISTORY OF PRESENT ILLNESS: Mr. Gant was recently transferred to the ICU due to increased shortness of breath and edema. He has had very little diuresis after 80 mg of IV Lasix. He has also been on Zaroxolyn. Echo is currently pending. PHYSICAL EXAMINATION: GENERAL: Anasarca. VITAL SIGNS: Current vital signs; blood pressure 113/71, pulse 67, and temperature afebrile. NEUROLOGIC: The patient is alert and oriented x3 with no focal neurologic deficits. HEENT: Sclerae without icterus. Mouth has moist mucous membranes with normal pallor. NECK: No JVD. Carotid upstroke brisk. No bruits bilaterally. LUNGS: Clear to auscultation with unlabored respirations. BACK: No scoliosis or kyphosis. CARDIAC: Irregularly irregular. ABDOMEN: Soft, nontender, nondistended. No peritoneal signs present. No hepatosplenomegaly. No abnormal striae. EXTREMITIES: pitting edema. SKIN: No gross abnormalities. LABORATORY DATA: Pertinent labs; hemoglobin 10.0. Creatinine 1.94, which is unchanged from 1.93 on 01/20/2019. Total output -155 mL. IMPRESSION: 1. Anasarca. 2. Combined congestive heart failure, likely related to systolic dysfunction in addition to severe pulmonary hypertension. 3. Previous liver transplant. 4. Chronic atrial fibrillation. RECOMMENDATIONS: At this point, continue current treatment. Nephrology is following closely. We will review echo once it has been performed. We will add low-dose for inotropic support. The patient is currently receiving metolazone in addition to Lasix. Job ID: [id number]
[2019-01-21] MEDS: DOBUTamine 500 mg/250 ml 250 ML IVPB SCH (12:28)
[2019-01-21 15:47] LABS: Urine Total Volume 600 mL (250-2400)
--- NOTE | 2019-01-21 16:09 | PRG ---
DATE OF SERVICE: 01/21/2019 SERVICE: Nephrology. SUBJECTIVE: A 68-year-old male patient with multiple comorbidities including end-stage liver disease, status post liver transplant; COPD; chronic atrial fibrillation, admitted with worsening shortness of breath and generalized edema. The patient was noted to be resistant to oral Lasix and was started on IV Lasix with no significant diuresis in the last 24 hours. He has been moved to the ICU due to worsening shortness of breath. OBJECTIVE: VITAL SIGNS: Temperature 97.5, pulse 77, respiratory rate 22, SpO2 93%, and blood pressure is 113/76. GENERAL: Chronically ill-looking, obese male, in [id number] respiratory distress. VITAL SIGNS: Afebrile, anicteric, acyanotic. HEENT: Normocephalic, atraumatic. CARDIOVASCULAR: Irregular rhythm and rate. RESPIRATORY: Fair air entry with scattered crackles and some transmitted sounds. No obvious rhonchi were appreciated. Work of breathing is increased. GI: Abdomen is obese, soft, nontender, nondistended with normal bowel sounds. EXTREMITIES: Moderate bilateral leg edema noted. EYEGLASS ASSEMBLER: Conscious, alert, and oriented x3 with appropriate mental status. DIAGNOSTIC DATA: CMP today showed sodium 125, potassium 3.3, chloride 85, CO2 26, BUN 50, creatinine 1.94, glucose 142, calcium 10.5, total bilirubin 1.0, AST 20, ALT 16, alkaline phosphatase 235, total protein 7.4, albumin 4.3. Magnesium is 2.5. Random urine protein collected yesterday was 196 with random urine creatinine of 77 given [facility], i.e., urine protein-creatinine ratio of 2.5 g/g of creatinine. Chest x-ray showed a worsening congestion of both lungs as well as persistent bilateral pleural effusion, right greater than left. ASSESSMENT: 1. Acute respiratory failure with hypoxia due to acute cardiac decompensation with fluid overload. 2. Acute on chronic combined systolic and diastolic heart failure. 3. Acute kidney injury: Most likely hemodynamic in etiology with cardiorenal syndrome being the most important. 4. Anasarca: Multifactorial from liver disease to cardiac as well as acute kidney injury and hypoalbuminemia. 5. Severe pulmonary hypertension of unclear etiology. 6. Bilateral leg edema: Most likely due to cardiac decompensation and liver pathology. Deep venous thrombosis is a concern given history of pulmonary hypertension of unclear etiology. 7. Status post liver transplant. Given elevation of alkaline phosphatase, rejection is a concern. Congestive hepatopathy from acute cardiac decompensation may be the culprit as well. PLAN: 1. Agree with transferring the patient to the ICU. 2. We will escalate diuretic therapy with increasing Lasix to 80 mg q.8 hours as well as with the addition of metolazone. We will also get Prograf level since toxicity can lead to CHLOE. 3. Echocardiogram is awaited to reassess cardiac function. Cardiology is following and inotropic therapy is considered. 4. We will monitor volume status as well as renal function closely. Other treatment as per other specialties. Job ID: [id number]
[2019-01-21 16:34] LABS: Protein - 24 Hr 1842 mg/24 hr (Less than 300); Protein, Urine 307 mg/dL (1-14)
[2019-01-21] MEDS: Rosuvastatin 10 MG TAB PO SCH (20:13)
[2019-01-21] MEDS: Multivit, Therapeutic 1 TAB PO SCH (20:13)
[2019-01-21] MEDS: Insulin Glargine 12 UNITS in Pre-Filled Syringe 1 EACH SC SCH (20:15)
[2019-01-21] MEDS: Insulin Regular 300 UNITS/3 ML VIAL SC PRN (21:23)
[2019-01-22] MEDS: DOBUTamine 500 mg/250 ml 250 ML IVPB SCH ×2 (01:08→17:36)
[2019-01-22 04:12] LABS: #Basophils 0.1 thou/uL (0.0-0.2); #Eosinphils 0.2 thou/uL (0.0-0.7); #Lymphocytes 0.3 thou/uL (1.20-3.40); #Monocytes 0.6 thou/uL (0.11-0.59); #Neutrophils 6.2 thou/uL (1.40-6.50); %Basophils 1.3 % (0.0-1.0); %Eosinophils 2.9 % (0.0-10.0); %Lymphocytes 4.5 % (21.0-51.0); %Monocytes 8.5 % (0.0-10.0); %Neutrophils 82.9 % (42.0-75.0); Hemoglobin 9.8 g/dL (14.0-18.0); Mean Corpuscular HGB CONC 32.3 g/dL (32.0-36.0); Mean Corpuscular Hemoglobin 27.9 pg (27.0-31.0); Mean Corpuscular Volume 86.4 fL (78.0-98.0); Mean Platelet Volume 6.9 fL (7.4-10.4); Platelet Count 289 thou/uL (130-400); RBC Distribution Width 16.5 % (11.5-14.5); White Blood Cell (WBC) Count 7.5 thou/uL (4.8-10.8)
[2019-01-22 04:27] LABS: ALT (SGPT) 15 U/L (8-55); AST (SGOT) 22 U/L (5-34); Albumin 3.7 g/dL (3.4-4.8); Alkaline Phosphatase 221 U/L (40-150); Anion Gap 15 mmol/L (10-20); BUN (Urea Nitrogen) 50 mg/dL (8.4-25.7); Calc. Creatinine Clearance 53 mL/min (70-130); Calcium 10.1 mg/dL (7.8-10.44); Carbon Dioxide 26 mmol/L (23-31); Chloride 87 mmol/L (98-107); Estimated GFR-MDRD 38; Globulin 2.9 g/dL (2.4-3.5); Glucose 140 mg/dL (80-115); Potassium 3.3 mmol/L (3.5-5.1); Protein, Total 6.6 g/dL (5.8-8.1); Sodium 125 mmol/L (136-145)
[2019-01-22] MEDS: Furosemide 100 MG/10 ML VIAL SLOW IVP SCH ×3 (05:20→21:35)
[2019-01-22] MEDS: Metolazone 2.5 MG TAB PO SCH (07:55)
[2019-01-22] MEDS: Amlodipine 5 MG TAB PO SCH (07:55)
[2019-01-22] MEDS: Potassium Chloride 20 MEQ TAB PO SCH (07:56)
[2019-01-22] MEDS: Calcitriol 0.25 MCG CAP PO SCH (07:56)
[2019-01-22] MEDS: Tacrolimus 1 MG CAP PO SCH ×2 (07:57→20:40)
[2019-01-22] MEDS: Insulin Glargine 7 UNITS in Pre-Filled Syringe 1 EACH SC SCH (08:28)
--- NOTE | 2019-01-22 08:33 | RAD ---
Exam: Chest one view HISTORY:Congestive heart failure Comparison: 01/21/2019 FINDINGS: Cardiac silhouette:Cardiomegaly Aorta: Atherosclerosis of the aortic knob Pulmonary vessels: Prominent Costophrenic angles: Persistent bilateral right greater than left pleural effusions LUNGS: Bibasilar lung parenchymal opacities due to atelectasis, pneumonia, edema or aspiration. Pneumothorax: None Osseous abnormalities: None IMPRESSION: Stable congestive heart failure.
--- NOTE | 2019-01-22 08:56 | PDOC.CTH ---
Cardiology Progress Note - Subjective IMproving. Less edema less SOB Is diuresing - Objective Vital Signs Temp Pulse Resp Pulse Ox 01/22/19 07:55 80 01/22/19 07:30 100 01/22/19 07:10 80 18 100 01/22/19 07:04 79 19 100 01/22/19 07:00 98.1 F 01/22/19 04:00 98.6 F 100 01/22/19 00:11 85 23 H 100 01/22/19 00:10 83 27 H 100 01/22/19 00:00 98.5 F 01/21/19 22:05 86 25 H 100 Admit Weight 216 lb 11.2 oz Weight 218 lb 7.649 oz 01/21/19 01/22/19 01/23/19 06:59 06:59 06:59 Intake Total 720 701.6 100 Output Total 875 1770 400 Balance -155 -1068.4 -300 - Physical Examination General/Neuro: alert & oriented x3, NAD Neck: no JVD present Lungs: unlabored respirations, other: (improved crackles bilaterally) Heart: PMI normal, RRR Abdomen: no HSM, NT/ND, soft Extremities: + femoral B - Labs Result Diagrams: 01/22/19 03:48 01/22/19 03:48 Troponin/CKMB CK-MB (CK-2) 1.7 ng/mL (0-6.6) 01/19/19 09:55 Troponin I 0.073 ng/mL (< 0.028) H 01/19/19 15:53 - Assessment/Plan Non-ischemic CM Acute on chronic RI Liver trnasplant Severe VALERI Mild pulmonary HTN EF appears to have diminished; 30-35% Pt has responded to dobutrex, lasix Pulmonary HTN has improved Continue Lasix and dobutrex
--- NOTE | 2019-01-22 09:33 | PRG ---
DATE OF SERVICE: 01/22/2019 SUBJECTIVE: Sharif Gant this morning is doing better, less short of breath. OBJECTIVE: VITAL SIGNS: Pulse 80, blood pressure 128/75, respiratory rate 18, saturations 95%. I's and O's are slightly negative. CHEST: Decreased breath sounds. Minimal crackles. CARDIAC: Normal S1 and S2. ABDOMEN: No masses. LABORATORY DATA: Hemoglobin is 9, hematocrit is 30, platelet count is 289, and white count is 7000. Sodium is 125. His creatinine is 1.79, slightly improved. BUN is 50 which is stabilized. IMPRESSION: 1. Pulmonary hypertension. 2. Sleep apnea. 3. Renal failure. 4. Congestive heart failure. PLAN: Dobutrex was initiated, to which apparently he has responded. He is making good urine. Start PT, supportive care. Baseline chest x-ray. Continue observation in the ICU, nocturnal CPAP. Job ID: [id number]
[2019-01-22] MEDS ORDERED: Potassium Chloride 20 MEQ TAB PO SCH (10:15)
--- NOTE | 2019-01-22 10:35 | PRG ---
DATE OF SERVICE: 01/22/2019 PRIMARY CARE PHYSICIAN: Benjie Juan MD SUBJECTIVE: The patient is feeling better. He is tolerating CPAP at night. Breathing is much easier. Swelling has diminished with dobutamine and Zaroxolyn. states that the patient is much more comfortable. OBJECTIVE: VITAL SIGNS: Temperature 98.1; pulse of 91; respirations 18, on BiPAP; and blood pressure 128/79. I's and O's, in 701 and out 1770 with a negative balance of 1068. Weight today is 218. Telemetry monitoring, occasional PVCs. GENERAL: He is awake and alert. No acute distress, on BiPAP. NECK: Supple. HEART: Regular rate and rhythm. LUNGS: Distant. No wheeze, rales, or rhonchi anteriorly. ABDOMEN: Soft. EXTREMITIES: With minimal edema, much improved from yesterday. LABORATORY DATA: Sodium 125, potassium 3.3, chloride 87, CO2 of 26, BUN and creatinine of 50 and 1.79 with a GFR of 38, and glucose of 140. Accu-Cheks of 148, 272, 170, and 180. Albumin of 3.7. Prograf level is pending. Echocardiogram revealed decreased left ventricular ejection fraction 35% to 40%. Chest x-ray, which showed stable congestive heart failure. ASSESSMENT AND PLAN: This is a 68-year-old gentleman, status post liver transplant, admitted with increased edema, shortness of breath, acute on chronic kidney failure, and congestive heart failure. 1. Nonischemic cardiomyopathy with decreased left ventricular ejection fraction and congestive heart failure. Doing much better on dobutamine and Zaroxolyn as well as Lasix. 2. Nephrotic syndrome with anasarca. Appreciate Nephrology team is getting IV albumin. Electrolytes being adjusted. 3. Status post liver transplant on Prograf awaiting level. 4. Severe pulmonary hypertension, on BiPAP. 5. Type 2 diabetes. We will adjust insulin. Job ID: [id number]
[2019-01-22] MEDS: Insulin Regular 300 UNITS/3 ML VIAL SC PRN ×3 (11:34→21:37)
--- NOTE | 2019-01-22 14:12 | PRG ---
DATE OF SERVICE: 01/22/2019 SERVICE: Nephrology. SUBJECTIVE: A 68-year-old male with multiple medical conditions including end-stage liver disease, status post transplant on immunosuppression with tacrolimus, COPD, chronic combined systolic and diastolic heart failure amongst others, who was admitted due to worsening shortness of breath and generalized edema as well as acute kidney injury. Nephrology is following the patient for CHLOE and worsening edema. The patient was moved to the ICU due to worsening shortness of breath. Diuretics were escalated and the patient also was started on dobutamine. He was found to have EF of 25% to 30%, which is reduced relative to his baseline. Overnight, the patient reports feeling better. OBJECTIVE: VITAL SIGNS: Temperature 98.1, pulse 87, respiratory rate 26, SpO2 is 96% with oxygen supplementation, blood pressure is 124/79. GENERAL: Chronically ill-looking male in mild respiratory distress. HEENT: Normocephalic, atraumatic. BiPAP mask is in place. CARDIOVASCULAR: Irregular rhythm and rate. Systolic murmur noted. RESPIRATORY: Fair air entry bilaterally with some transmitted sounds. No obvious rhonchi were appreciated. GASTROINTESTINAL: Obese, soft, nontender with normal bowel sounds. EXTREMITIES: [id number] bilateral leg edema, worse on the right. Venous stasis changes of both distal legs were also noted. CENTRAL NERVOUS SYSTEM: Conscious, alert and oriented x3 with appropriate mental status. DIAGNOSTIC DATA: CBC showed WBC count of 7.5, hemoglobin of 9.8, platelet of 289. CMP today showed sodium 125, potassium 3.3, chloride 87, CO2 of 26, BUN 50, creatinine 1.79, glucose 140, calcium 10.1, total bilirubin 1, AST 22, ALT 15, alkaline phosphatase 221, total protein 6.6, albumin 3.7, globulin 2.9. Magnesium is 2.0. A 24-hour urine total protein is 1842. ASSESSMENT: 1. Acute kidney injury: This is felt to be cardiorenal in etiology. With commencement of inotropic agent, creatinine is trending downwards and the patient is beginning to make more urine. 2. Anasarca: Multifactorial in etiology with acute cardiac decompensation acting in concert with liver disease and kidney insufficiency. 3. Acute respiratory failure with hypoxia: Due to fluid overload and pulmonary congestion related to cardiac decompensation. 4. Status post liver transplant. The patient recently had his immunosuppressants decreased. Repeat tacrolimus level is pending at this time. Rejection is a concern given elevated alkaline phosphatase as well as anasarca. This may well be explained by acute cardiac decompensation. 5. Cardiomyopathy with ejection fraction of 25% to 30%. The patient's baseline ejection fraction is 40% to 45%. Etiology is unclear. Defer to Cardiology. 6. Moderate mitral regurgitation. 7. Mild pulmonary hypertension. 8. Hypokalemia: Due to diuretic therapy. 9. Hyponatremia: Due to intravascular contraction with appropriate ADH secretion related to acute cardiac decompensation. The patient also has chronic liver disease, which will also lead to inappropriate ADH secretion. PLAN: 1. We will continue diuretic therapy with Lasix intravenously 80 mg q.8 hours. We will also continue metolazone 5 mg p.o. daily. 2. We will continue to monitor electrolytes and replete as needed. Job ID: [id number]
[2019-01-22] MEDS: Multivit, Therapeutic 1 TAB PO SCH (20:39)
[2019-01-22] MEDS: Rosuvastatin 10 MG TAB PO SCH (20:39)
[2019-01-22] MEDS: Insulin Glargine 12 UNITS in Pre-Filled Syringe 1 EACH SC SCH (20:41)
[2019-01-23] MEDS: Furosemide 100 MG/10 ML VIAL SLOW IVP SCH ×3 (05:37→22:03)
[2019-01-23 06:03] LABS: ALT (SGPT) 29 U/L (8-55); AST (SGOT) 53 U/L (5-34); Albumin 3.7 g/dL (3.4-4.8); Alkaline Phosphatase 314 U/L (40-150); Anion Gap 17 mmol/L (10-20); BUN (Urea Nitrogen) 48 mg/dL (8.4-25.7); Bilirubin, Total 1.1 mg/dL (0.2-1.2); Calc. Creatinine Clearance 57 mL/min (70-130); Carbon Dioxide 27 mmol/L (23-31); Chloride 84 mmol/L (98-107); Estimated GFR-MDRD 41; Globulin 3.1 g/dL (2.4-3.5); Glucose 121 mg/dL (80-115); Magnesium 1.9 mg/dL (1.6-2.6); Potassium 3.3 mmol/L (3.5-5.1); Protein, Total 6.8 g/dL (5.8-8.1); Sodium 125 mmol/L (136-145)
[2019-01-23] MEDS: Metolazone 2.5 MG TAB PO SCH (08:12)
[2019-01-23] MEDS: Tacrolimus 1 MG CAP PO SCH ×2 (08:12→21:14)
[2019-01-23] MEDS: Potassium Chloride 20 MEQ TAB PO SCH ×2 (08:13→21:13)
[2019-01-23] MEDS: Calcitriol 0.25 MCG CAP PO SCH (08:13)
[2019-01-23] MEDS: Amlodipine 5 MG TAB PO SCH (08:13)
[2019-01-23] MEDS: Insulin Glargine 10 UNITS in Pre-Filled Syringe 1 EACH SC SCH (08:14)
[2019-01-23] MEDS: Magnesium Oxide 400 MG TAB PO SCH ×3 (10:06→21:13)
--- NOTE | 2019-01-23 10:51 | PRG ---
DATE OF SERVICE: SUBJECTIVE: Mr. Gant is doing well. He is diuresed. His weight is decreased. He has had 2 episodes of short runs of nonsustained VT. He is off BiPAP. OBJECTIVE: VITAL SIGNS: Blood pressure 130/75, pulse 79, temperature afebrile. LUNGS: Rhonchi, rales bilaterally. HEART: Irregularly regular. ABDOMEN: Soft, nontender, nondistended. EXTREMITIES: 1 to 2+ pitting edema. PERTINENT LABORATORY DATA: Hemoglobin 9.8. Creatinine 1.68, which is down from 1.9; potassium 3.3; sodium 125; BUN 48. IMPRESSION: 1. Pfiwv-uw-snehpes systolic heart failure. 2. Wjpl-wc-mhzjzfev coronary artery disease. 3. Chronic kidney disease. 4. Previous liver transplant. 5. Severe obstructive sleep apnea. RECOMMENDATIONS: His followup magnesium level was 1.9. His potassium is low at 3.3, this may worsen his nonsustained VT. He has had nonsustained VT in the past. We will consult with EP for recommendations. We will certainly need a LifeVest versus ICD. We will supplement potassium. We will continue to watch sodium as he diuresis. It has been stable in the 125 range. Continue with Dobutrex. Job ID: [id number]
[2019-01-23] MEDS: Insulin Regular 300 UNITS/3 ML VIAL SC PRN ×3 (11:09→21:13)
--- NOTE | 2019-01-23 13:17 | PRG ---
DATE OF SERVICE: 01/23/2019 SUBJECTIVE: Mr. Gant is resting better. He has been transferred to the unit. He has been dobutamine infusion with doses of IV Lasix. He is losing some fluid. OBJECTIVE: VITAL SIGNS: Temperature is 98.6, blood pressure 135/71. LUNGS: Reveal bilateral breath sounds. HEART: Reveals a regular rate and rhythm without murmurs, gallops, or rubs. EXTREMITIES: 1+ edema bilaterally. LABORATORY DATA: His sodium is 125, potassium 3.3, chloride 84, CO2 of 27, BUN 48, and creatinine 1.66. Blood sugars are out of control. IMPRESSION: Pulmonary edema, anasarca, improved. PLAN: Continue current treatment. Job ID: [id number]
[2019-01-23 14:09] LABS: Cytoplasmic (C-ANCA) <1:20 titer (Neg:<1:20); Myeloperoxidase AutoAbs <9.0 U/mL (0.0-9.0); Perinuclear (P-ANCA) <1:20 titer (Neg:<1:20); Proteinase-3 AutoAbs Less than 3.5 U/mL (0.0-3.5)
[2019-01-23] MEDS: Acetaminophen 325 MG TAB PO PRN (15:57)
[2019-01-23] MEDS ORDERED: Potassium Chloride 20 MEQ TAB PO SCH (17:15)
--- NOTE | 2019-01-23 18:17 | PRG ---
DATE OF SERVICE: 01/23/2019 SUBJECTIVE: Sharif Gant says he is feeling better. He has done well on a dobutamine drip. Records have been reviewed. OBJECTIVE: VITAL SIGNS: Blood pressure 133/82, heart rate 83, and respiratory rate in the low 20s. LUNGS: Clear. HEART: Regular rhythm. ABDOMEN: Soft. EXTREMITIES: Without edema. LABORATORY DATA: White count 7.5, hemoglobin 9.8, platelets 289. Sodium 125, potassium 3.3, chloride 84, bicarb 27, BUN 48, creatinine 1.68. Intake and output coming in today was negative 2545. He remains on a dobutamine drip. IMPRESSION: 1. Volume overload. 2. Left ventricular systolic dysfunction. 3. Pulmonary hypertension. 4. Sleep apnea. PLAN: Continue with his CPAP. Continue diuresis. Continue dobutamine. Continue care in the critical care unit. Job ID: [id number]
--- NOTE | 2019-01-23 18:40 | PRG ---
DATE OF SERVICE: 01/23/2019 SERVICE: Nephrology. SUBJECTIVE: A 68-year-old male with known congestive heart failure, admitted due to worsening shortness of breath and swelling. Nephrology Service is following the patient for CHLOE, volume overload, and electrolyte derangement. The patient is clinically improved. Respiratory status has improved significantly. Diuresing well with the addition of dobutamine. OBJECTIVE: VITAL SIGNS: Temperature 99.1, pulse 83, respiratory rate 22, SpO2 of 93, and BP 133/80. GENERAL: Elderly male, in no obvious distress. Afebrile. Anicteric. Acyanotic. HEENT: Normocephalic and atraumatic. Oral mucosa is moist. CARDIOVASCULAR: Irregular rhythm and rate. Systolic murmur noted. RESPIRATORY: Fair air entry bilateral with few bibasilar crackles posteriorly. No obvious rhonchi were appreciated. GI: Obese, soft, nontender, and nondistended with normal bowel sounds. EXTREMITIES: Moderate bilateral leg edema noted. LINE INSTALLER: Conscious, alert, and oriented x3 with appropriate mental status. DIAGNOSTIC DATA: CMP today showed sodium 125, potassium 3.3, chloride 84, CO2 of 27, BUN 48, creatinine 1.68, glucose 121, calcium 10.0, magnesium 1.9, total bilirubin 1.1, AST 53, ALT 29, alkaline phosphatase 314, total protein 6.8, albumin 3.7, and globulin 3.1. ASSESSMENT AND PLAN: 1. Acute kidney injury: This is cardiorenal in etiology. Creatinine continues to trend down with improvement in hemodynamics and volume status. 2. Anasarca: Diuresing well now with the addition of dobutamine. We will continue Lasix 80 mg q.8 h. and monitor renal function as well as daily weights and I and O. 3. Acute respiratory failure with hypoxia: Due to fluid overload and pulmonary congestion, improving. Cardiomyopathy with worsening ejection fraction. Now down to 25 to 30 from recent 40 to 45. 4. Moderate mitral regurgitation. 5. Hypokalemia: Due to diuretic therapy. We will replete with potassium chloride. 6. Hyponatremia: Due to intravascular contraction as well as congestive heart failure with possible contribution with liver disorder. We will monitor closely with diuretic therapy. 7. Further treatment as per primary attending and other specialties. Job ID: [id number] [facility]
[2019-01-23] MEDS: Insulin Glargine 12 UNITS in Pre-Filled Syringe 1 EACH SC SCH (21:12)
[2019-01-23] MEDS: Rosuvastatin 10 MG TAB PO SCH (21:13)
[2019-01-23] MEDS: Multivit, Therapeutic 1 TAB PO SCH (21:13)
[2019-01-23] MEDS: Apixaban 2.5 MG TAB PO SCH (21:14)
[2019-01-24 04:30] LABS: #Eosinphils 0.6 thou/uL (0.0-0.7); #Lymphocytes 0.5 thou/uL (1.20-3.40); #Monocytes 0.6 thou/uL (0.11-0.59); #Neutrophils 3.7 thou/uL (1.40-6.50); %Basophils 0.6 % (0.0-1.0); %Eosinophils 11.4 % (0.0-10.0); %Lymphocytes 9.7 % (21.0-51.0); %Monocytes 11.5 % (0.0-10.0); %Neutrophils 66.8 % (42.0-75.0); Hemoglobin 9.9 g/dL (14.0-18.0); Mean Corpuscular HGB CONC 32.5 g/dL (32.0-36.0); Mean Corpuscular Hemoglobin 28.1 pg (27.0-31.0); Mean Corpuscular Volume 86.6 fL (78.0-98.0); Mean Platelet Volume 6.4 fL (7.4-10.4); Platelet Count 306 thou/uL (130-400); RBC Distribution Width 16.3 % (11.5-14.5); Red Blood Cell (RBC) Count 3.51 mill/uL (4.70-6.10); White Blood Cell (WBC) Count 5.6 thou/uL (4.8-10.8)
[2019-01-24 04:53] LABS: ALT (SGPT) 59 U/L (8-55); AST (SGOT) 86 U/L (5-34); Albumin 3.5 g/dL (3.4-4.8); Alkaline Phosphatase 369 U/L (40-150); Anion Gap 14 mmol/L (10-20); BUN (Urea Nitrogen) 51 mg/dL (8.4-25.7); Bilirubin, Total 0.7 mg/dL (0.2-1.2); Calc. Creatinine Clearance 58 mL/min (70-130); Calcium 9.8 mg/dL (7.8-10.44); Carbon Dioxide 30 mmol/L (23-31); Chloride 84 mmol/L (98-107); Estimated GFR-MDRD 42; Globulin 3.1 g/dL (2.4-3.5); Glucose 80 mg/dL (80-115); Magnesium 2.1 mg/dL (1.6-2.6); Potassium 3.3 mmol/L (3.5-5.1); Protein, Total 6.6 g/dL (5.8-8.1); Sodium 125 mmol/L (136-145)
[2019-01-24] MEDS: Furosemide 100 MG/10 ML VIAL SLOW IVP SCH ×3 (06:11→21:45)
[2019-01-24] MEDS: Apixaban 2.5 MG TAB PO SCH ×2 (08:16→20:27)
[2019-01-24] MEDS: Metolazone 2.5 MG TAB PO SCH (08:16)
[2019-01-24] MEDS: Tacrolimus 1 MG CAP PO SCH ×2 (08:17→20:27)
[2019-01-24] MEDS: Insulin Glargine 10 UNITS in Pre-Filled Syringe 1 EACH SC SCH (08:17)
[2019-01-24] MEDS: Magnesium Oxide 400 MG TAB PO SCH ×3 (08:18→20:27)
[2019-01-24] MEDS: Calcitriol 0.25 MCG CAP PO SCH (08:19)
[2019-01-24] MEDS: Amlodipine 5 MG TAB PO SCH (08:19)
[2019-01-24] MEDS: Potassium Chloride 20 MEQ TAB PO SCH ×2 (08:20→20:27)
[2019-01-24] MEDS: Acetaminophen 325 MG TAB PO PRN (08:21)
--- NOTE | 2019-01-24 09:05 | RAD ---
FRONTAL VIEW CHEST: Date: 01/24/19 COMPARISON: 01/22/19. INDICATION: CHF. FINDINGS: Persistent elevation right hemidiaphragm. Bibasilar pleural based, as well as bilateral perihilar consuelo eolar and interstitial opacities remain. There is enlargement of the cardiac silhouette and prominenc e of pulmonary vasculature. IMPRESSION: Evidence of fluid overload. POS: [facility]
--- NOTE | 2019-01-24 09:11 | PRG ---
DATE OF SERVICE: 01/24/2019 SUBJECTIVE: Mr. Gant is resting in bed. He looks much more comfortable, less short of breath. Feels somewhat better, but still feels weak. OBJECTIVE: VITAL SIGNS: Blood pressure 111/82, O2 saturations 92% on room air. LUNGS: Reveal bilateral breath sounds. HEART: Reveals an irregularly irregular rhythm without murmur, gallops, or rubs. EXTREMITIES: Decreased edema is noted bilaterally. LABORATORY DATA: Hemoglobin 9.9, hematocrit 30.4. Sodium 125, potassium 3.3, chloride 84, CO2 of 30, BUN 51, and creatinine 1.63. He is -2545 fluid Is and Os. IMPRESSION: Fluid overload syndrome, etiology of this could represent cardiac and renal difficulties. PLAN: 1. Continue current regimen. His dobutamine has been stopped. 2. He will probably need to consider either rehab admission or aggressive home physical therapy. Job ID: [id number]
--- NOTE | 2019-01-24 09:31 | PRG ---
DATE OF SERVICE: 01/24/2019 SUBJECTIVE: Mr. Gant is a 68-year-old male with known history of chronic renal failure/status post liver transplant, admitted for CHF. The patient was initially unresponsive to diuretics. However, he has been started by his gluer and wedger on dobutamine and Lasix was continued. He has started diuresing. His shortness of breath is improving. Renal function remains stable. According to the patient's , a repeat cardiac echo showed that the ejection fraction has decreased to 30%. Recommendation to place a LifeVest and continues IV dobutamine. His renal function has remained stable and actually is slightly improved compared to admission. The patient tells me shortness of breath is much improved. OBJECTIVE: VITAL SIGNS: Blood pressure is 103/62, heart rate 71, respiratory rate 21, and pulse ox 92%. GENERAL: The patient is awake, sitting comfortable, not in overt distress. SKIN: Adequate turgor. HEENT: He has a pinkish conjunctivae. Anicteric sclerae. NECK: No neck mass. No carotid bruits. No JVD. CHEST: No deformities. LUNGS: Decreased breath sounds. HEART: Normal sinus rhythm. No murmur. No gallops. No rubs. ABDOMEN: Globular, soft, and nontender. No masses. EXTREMITIES: No edema. No deformities. MEDICATIONS: Medications of January 24, 2019, was reviewed. LABORATORY DATA: Laboratories of January 24, 2019, white count 5.6 and hemoglobin 9.9. Sodium 125, potassium 3.3, chloride 84, carbon dioxide 30, BUN 51, creatinine 1.63, AST 86, ALT 59, and albumin is 3.5. January 23, 2019, creatinine 1.68. January 22, 2019, creatinine was 1.79. January 21, 2019, creatinine was 1.94. ASSESSMENT AND PLAN: 1. Acute kidney injury/chronic renal failure - a superimposed hemodynamically-mediated dysfunction. Creatinine has been stable with optimization of his cardiac status. He is currently on a diuretic regimen. We will adjust diuretics depending what his creatinine will be. 2. Congestive heart failure - repeat cardiac echo showed a decreased EF of about 30%. Dr. Rios is following the patient. He is currently to continue IV dobutamine. Recommendation for LifeVest has been made. 3. Status post liver transplant. Continue current immunosuppressive regimen. Please note, the patient's tacrolimus at 1 mg p.o. b.i.d. Overall agree with current management. Case discussed at length with the . Job ID: [id number]
[2019-01-24] MEDS ORDERED: Sterile Water 10 ML VIAL IVP SCH (09:45)
[2019-01-24] MEDS ORDERED: acetaZOLAMIDE Sodium 500 mg Vial IVP SCH (09:45)
--- NOTE | 2019-01-24 10:03 | PRG ---
DATE OF SERVICE: 01/24/2019 SUBJECTIVE: Mr. Gant is in no distress. His feels that he is getting back to being his same old personality. OBJECTIVE: VITAL SIGNS: Blood pressure 103/62; heart rate 71, he is in atrial fibrillation; respiratory rate is in the teens; oximetry is 92, now on room air; blood pressure 111/82 earlier this morning. Intake and outputs -592. LUNGS: Remarkable for tubular breath sounds at his right base. HEART: Irregular rhythm. S1 and S2 are normal. ABDOMEN: Soft, still protuberant. IMAGING STUDIES: Chest radiograph shows an elevated right hemidiaphragm. His x-rays improved compared to earlier films. LABORATORY DATA: White count 5.6, hemoglobin 9.9, platelets 306. Sodium 125, potassium 3.3, chloride 84, bicarb 30, BUN 51, creatinine 1.53. IMPRESSION AND PLAN: 1. Congestive heart failure. 2. Chronic atrial Hypertension. 3. Chronic anticoagulation. 4. Status post back transplant. 5. Pulmonary hypertension. 6. Metabolic alkalosis is developing. He will receive one dose of Diamox today. We will continue to follow closely. In my opinion, he should probably remain in the unit. 7. Severe sleep apnea, currently tolerating nocturnal ASV/BiPAP. Job ID: [id number]
[2019-01-24] MEDS: Insulin Regular 300 UNITS/3 ML VIAL SC PRN ×2 (11:30→17:20)
--- NOTE | 2019-01-24 13:16 | PRG ---
DATE OF SERVICE: 01/24/2019 SUBJECTIVE: Mr. Gant is doing well. He continues to diurese. Unfortunately, there is a disparity between weight and amount of fluid per I's and O's. He is off non-rebreather and off BiPAP. He does appear more comfortable, more lucid. PHYSICAL EXAMINATION: GENERAL: Patient is a pleasant male who is in no acute distress. The patient appears their stated age. VITAL SIGNS: Blood pressure 120/70, pulse 83, I's and O's -592. Current weight 204 pounds on bedside scale. NEUROLOGIC: The patient is alert and oriented x3 with no focal neurologic deficits. HEENT: Sclerae without icterus. Mouth has moist mucous membranes with normal pallor. NECK: No JVD. Carotid upstroke brisk. No bruits bilaterally. LUNGS: Crackles noted bilaterally. BACK: No scoliosis or kyphosis. CARDIAC: Regular rate and rhythm with normal S1 and S2. No S3 or S4 noted. No significant rubs, murmurs, thrills, or gallops noted throughout the precordium. PMI is not displaced. There is no parasternal heave. ABDOMEN: Soft, nontender, nondistended. No peritoneal signs present. No hepatosplenomegaly. No abnormal striae. EXTREMITIES: 2+ femoral and 2+ dorsalis pedis pulses. No cyanosis, clubbing, or edema. SKIN: No gross abnormalities. PERTINENT LABORATORY DATA: Hemoglobin 9.9. Creatinine 1.63 with a GFR of 42, potassium 3.3, sodium 125. IMPRESSION: 1. Acute on chronic systolic heart failure. 2. Pulmonary hypertension. 3. Acute on chronic renal insufficiency. 4. History of liver transplant. 5. Nonsustained ventricular tachycardia. RECOMMENDATIONS: Dobutamine was discontinued overnight. Unknown as to why. This has been restarted. Would like to continue dobutamine chronotropic support. Seem to have really helped Mr. Gant. Continue Lasix per Nephrology. We will also order LifeVest given his LVEF of 30% to 35%. Nonsustained VT may be related to dobutamine infusion. No noted VT present prior to starting dobutamine. We will continue to monitor. Job ID: [id number]
[2019-01-24] MEDS: DOBUTamine 500 mg/250 ml 250 ML IVPB SCH (14:29)
[2019-01-24 15:10] LABS: Tacrolimus 3.2 ng/mL (2.0-20.0)
[2019-01-24] MEDS: Insulin Glargine 12 UNITS in Pre-Filled Syringe 1 EACH SC SCH (20:26)
[2019-01-24] MEDS: Multivit, Therapeutic 1 TAB PO SCH (20:27)
[2019-01-24] MEDS: Rosuvastatin 10 MG TAB PO SCH (20:27)
[2019-01-24] MEDS ORDERED: Magnesium 2 GM/50 ML 2 GM in Premix Bag 1 BAG IVPB SCH (21:45)
[2019-01-24] MEDS ORDERED: Potassium Chloride 20 MEQ TAB PO SCH (21:45)
[2019-01-25 04:46] LABS: ALT (SGPT) 55 U/L (8-55); AST (SGOT) 71 U/L (5-34); Albumin 3.5 g/dL (3.4-4.8); Alkaline Phosphatase 364 U/L (40-150); Anion Gap 16 mmol/L (10-20); BUN (Urea Nitrogen) 54 mg/dL (8.4-25.7); Bilirubin, Total 0.7 mg/dL (0.2-1.2); Calc. Creatinine Clearance 53 mL/min (70-130); Calcium 9.9 mg/dL (7.8-10.44); Carbon Dioxide 30 mmol/L (23-31); Chloride 84 mmol/L (98-107); Estimated GFR-MDRD 40; Globulin 3.1 g/dL (2.4-3.5); Glucose 133 mg/dL (80-115); Magnesium 2.5 mg/dL (1.6-2.6); Potassium 3.8 mmol/L (3.5-5.1); Protein, Total 6.6 g/dL (5.8-8.1); Sodium 126 mmol/L (136-145)
[2019-01-25] MEDS: Furosemide 100 MG/10 ML VIAL SLOW IVP SCH ×3 (06:16→23:28)
[2019-01-25] MEDS: Insulin Glargine 10 UNITS in Pre-Filled Syringe 1 EACH SC SCH (08:27)
[2019-01-25] MEDS: Apixaban 2.5 MG TAB PO SCH ×2 (08:28→20:07)
[2019-01-25] MEDS: Magnesium Oxide 400 MG TAB PO SCH ×3 (08:28→20:06)
[2019-01-25] MEDS: Metolazone 2.5 MG TAB PO SCH (08:28)
[2019-01-25] MEDS: Potassium Chloride 20 MEQ TAB PO SCH ×2 (08:28→20:07)
[2019-01-25] MEDS: Amlodipine 5 MG TAB PO SCH (08:29)
[2019-01-25] MEDS: Calcitriol 0.25 MCG CAP PO SCH (08:29)
[2019-01-25] MEDS: Tacrolimus 1 MG CAP PO SCH ×2 (08:29→20:06)
--- NOTE | 2019-01-25 09:41 | PRG ---
DATE OF SERVICE: 01/25/2019 SUBJECTIVE: Mr. Gant is a 68-year-old white male, who was admitted for shortness of breath/CHF and failed with the p.o. diuretics. We are following him up for his acute kidney injury on top of his chronic renal failure. He continues to be diuresing well. A recent cardiac evaluation showed decreased ejection fraction on this patient. He has been placed on IV dobutamine, which is currently being weaned off. This morning, he is feeling better. No other complaints. OBJECTIVE: VITAL SIGNS: Blood pressure is noted at 126/75, heart rate 71, respiratory rate 20, pulse ox 99%. GENERAL: Awake, sitting, on CPAP. HEENT: Slightly pale conjunctivae. Anicteric sclerae. NECK: No neck mass. No carotid bruits. No JVD. CHEST: No deformities. LUNGS: Decreased breath sounds. HEART: Normal sinus rhythm. No murmur, no gallops, no rubs. ABDOMEN: Globular, soft. Nontender. No masses. EXTREMITIES: Trace edema. No deformities. MEDICATIONS: Medications of January 25, 2019, were reviewed. LABORATORY DATA: Laboratories of January 24, 2019; white count 5.6, hemoglobin 9.9. Sodium 126, potassium 3.8, chloride 84, carbon dioxide 30, BUN 54, creatinine 1.71, glucose 133, magnesium 2.5, AST 71, ALT 55, albumin 3.5. ASSESSMENT AND PLAN: 1. Congestive heart failure-clinically improving. The patient is diuresing well. We will continue current diuretic regimen. He is tolerating the said medication. 2. Acute kidney injury/chronic renal failure. Stable creatinine. Continue current diuretic regimen. No changes to be made for the moment. Please note, the patient continues to diurese well. He has made about 3 L of urine output in the last 24 hours. Overall prognosis remains guarded with this patient. Overall agree with current management. Job ID: [id number]
[2019-01-25] MEDS: Insulin Regular 300 UNITS/3 ML VIAL SC PRN ×3 (11:21→20:10)
[2019-01-25 12:17] LABS: DRVVT Confirm 69.5; DRVVT Ratio 0.6 Ratio (1.2 or Less); HEX PHOS LA Tube 1 64.3 SEC; HEX PHOS LA Tube 2 58.7 SEC; Hexagonal Phospholipid Neut 5.6 SEC (0-8.0)
[2019-01-25 13:44] LABS: Factor VIII Test 278.3 % ACTIVE (56-157)
[2019-01-25 13:45] LABS: Factor IX Test 139.3 % ACTIVE (56-149)
--- NOTE | 2019-01-25 14:21 | PRG ---
DATE OF SERVICE: 01/25/2019 SUBJECTIVE: The patient is awake and alert, sitting up. He states he is feeling better, notes less shortness of breath. OBJECTIVE: VITAL SIGNS: Blood pressure 126/84, O2 saturations 99% on 2 L. LUNGS: Reveal bilateral breath sounds. HEART: Reveals an irregular rhythm without murmurs, gallops, or rubs. IMAGING DATA: Chest x-ray shows some evidence of fluid overload, although this appears to be somewhat improved from previous examinations. LABORATORY DATA: Sodium 126, potassium 3.8, chloride 84, CO2 of 54, and creatinine 1.71. Fluid balance still shows negative fluid balance. His weight is down to 211. There are reports of other weights of 204. IMPRESSION: Pulmonary edema, volume overload. PLAN: 1. He is being weaned off dobutamine. He started to have some ectopy that necessitate weaning from dobutamine. 2. With regard to his medical status, it is improved. I am going to get a rehab screen. Talked with and the patient, felt like it might be better to go to rehab for a week or so after hospitalization just to get better conditioning. Job ID: [id number]
[2019-01-25 18:03] LABS: ANA Symphony (Qualitative) Negative (Negative); ANA Symphony (Quantitative) 0.2 Ratio (< 0.7 Negative); CCP IgG Antibody 0.4 EliAU/mL (<7 Negative); Cardiolipin IgA Ab 2.4 APL-U/mL (<14 Negative); Cardiolipin IgG Ab 0.5 GPL-U/mL (<10 Negative); Cardiolipin IgM Ab Less than 0.8 MPL-U/mL (<10 Negative); EliA APS New Method **** NEW METHOD ****; EliA RAS New Method **** NEW METHOD ****; Rheumatoid Factor IgA Antibody 4.3 IU/mL (<14 Negative); Rheumatoid Factor IgM Antibody Less than 0.5 IU/mL (<3.5 Negative); beta-2-Glycoprotein I IgG Ab Less than 0.6 U/mL (<7 Negative); beta-2-Glycoprotein I IgM Abs Less than 2.9 U/mL (<7 Negative); dsDNA IgG Antibody Less than 0.5 IU/mL (<10 Negative)
--- NOTE | 2019-01-25 18:49 | PRG ---
DATE OF SERVICE: 01/25/2019 SUBJECTIVE: Mr. Gant is doing much better. He is weaned down to dobutamine at . Blood pressure and heart rate appears stable. He continues to diurese. His overall weight has decreased from 218 to 211. Overnight, he diuresed over 2 L. OBJECTIVE: VITAL SIGNS: Blood pressure 119/76, pulse 71, temperature afebrile. Net I's and O's -2213. LUNGS: Crackles bilaterally. HEART: Irregularly irregular. ABDOMEN: Soft, nontender, nondistended. EXTREMITIES: Decreased edema. PERTINENT LABORATORY DATA: Hemoglobin 9.9, creatinine 1.71. IMPRESSION: 1. Acute on chronic systolic heart failure. 2. Previous liver transplant. 3. Atrial fibrillation. 4. Pulmonary hypertension. 5. Obstructive sleep apnea. RECOMMENDATIONS: Mr. Gant continues to do well. Continue current course. Keep dobutamine at low dose. He has had nonsustained VT, likely from dobutamine. I have also ordered . We will also recommend EP consultation in a.m. to assess for VT. Job ID: [id number]
[2019-01-25] MEDS: Multivit, Therapeutic 1 TAB PO SCH (20:06)
[2019-01-25] MEDS: Rosuvastatin 10 MG TAB PO SCH (20:07)
[2019-01-25] MEDS: Insulin Glargine 12 UNITS in Pre-Filled Syringe 1 EACH SC SCH (20:07)
--- NOTE | 2019-01-25 22:25 | PRG ---
DATE OF SERVICE: 01/25/2019 SUBJECTIVE: Sharif Gant did well. He is wearing his BiPAP/ASV. He continues to diurese, although the weights did not agree with intakes and outputs that are recorded. His intake and output coming in today was -2213 OBJECTIVE: LUNGS: Still remarkable for fine crackles at his lung bases. HEART: Regular rhythm. ABDOMEN: Soft. EXTREMITIES: Without edema. LABORATORY DATA: White count was normal yesterday. There is no CBC from today. Sodium is 126, potassium 3.8, chloride 84, bicarb 30, BUN 54, creatinine 1.71, which is stable. Liver enzymes barely elevated. Alkaline phosphatase 364, AST 71, ALT 55. IMPRESSION: 1. Congestive heart failure. 2. Pulmonary hypertension ?secondary to cardiomyopathy. 3. Sleep apnea, severe, currently being treated with ASV. He loves the device, so we will not be making changes at least for now. 4. Volume overload. Continue to diurese. 5. Acute on chronic kidney disease. 6. History of liver transplantation, followed by Dr. Culp in the past. I feel his liver enzyme elevations are mild and most likely related to passive hepatic congestion. We plan to discuss with Gastroenterology. Continue current care. Job ID: [id number] [facility]
[2019-01-26 05:31] LABS: ALT (SGPT) 56 U/L (8-55); AST (SGOT) 62 U/L (5-34); Albumin 3.6 g/dL (3.4-4.8); Alkaline Phosphatase 376 U/L (40-150); Anion Gap 14 mmol/L (10-20); BUN (Urea Nitrogen) 57 mg/dL (8.4-25.7); Bilirubin, Total 0.7 mg/dL (0.2-1.2); Calc. Creatinine Clearance 54 mL/min (70-130); Calcium 9.8 mg/dL (7.8-10.44); Carbon Dioxide 31 mmol/L (23-31); Chloride 84 mmol/L (98-107); Estimated GFR-MDRD 40; Globulin 3.3 g/dL (2.4-3.5); Glucose 80 mg/dL (80-115); Magnesium 2.4 mg/dL (1.6-2.6); Potassium 3.3 mmol/L (3.5-5.1); Protein, Total 6.9 g/dL (5.8-8.1); Sodium 126 mmol/L (136-145)
[2019-01-26] MEDS: Furosemide 100 MG/10 ML VIAL SLOW IVP SCH (06:41)
[2019-01-26] MEDS: Acetaminophen 325 MG TAB PO PRN (07:48)
[2019-01-26] MEDS: Metolazone 2.5 MG TAB PO SCH (07:51)
[2019-01-26] MEDS ORDERED: Furosemide 100 MG/10 ML VIAL SLOW IVP SCH (09:00)
[2019-01-26] MEDS ORDERED: Furosemide 80 MG TAB PO SCH (09:00)
[2019-01-26] MEDS: Calcitriol 0.25 MCG CAP PO SCH (09:03)
[2019-01-26] MEDS: Apixaban 2.5 MG TAB PO SCH (09:03)
[2019-01-26] MEDS: Potassium Chloride 20 MEQ TAB PO SCH ×2 (09:04→21:12)
[2019-01-26] MEDS: Amlodipine 5 MG TAB PO SCH (09:04)
[2019-01-26] MEDS: Tacrolimus 1 MG CAP PO SCH ×2 (09:09→21:12)
[2019-01-26] MEDS: Insulin Glargine 10 UNITS in Pre-Filled Syringe 1 EACH SC SCH (09:12)
[2019-01-26] MEDS: Magnesium Oxide 400 MG TAB PO SCH ×3 (09:13→16:54)
--- NOTE | 2019-01-26 10:03 | PRG ---
DATE OF SERVICE: 01/26/2019 SUBJECTIVE: Mr. Gant is a 68-year-old white male, who was admitted for CHF, refractory to diuretics. We are now following him up for his chronic renal failure and volume overload. He has been started on IV Lasix at 80 mg q.8 plus metolazone. He is doing well. He is diuresing. His breathing is much improved. He has also been seen by Cardiology and has been started on IV dobutamine. Dr. Wiley has been consulted for a possible LifeVest/AICD placement with this patient. He continues to be on BiPAP. No complaints of chest pain or shortness of breath. OBJECTIVE: VITAL SIGNS: Blood pressure is noted at 112/72, heart rate 83, respiratory rate 24, pulse ox 100%. GENERAL: Awake, alert, sitting comfortable, not in overt distress. SKIN: Adequate turgor. HEENT: He has a slightly pale conjunctivae. Anicteric sclerae. NECK: No neck mass. No carotid bruits. No JVD. LUNGS: occasional crackles. HEART: Normal sinus rhythm. No murmur. No gallops. No rubs. ABDOMEN: Globular, soft, nontender. No masses. EXTREMITIES: No edema. MEDICATIONS: Of January 26, 2019, reviewed. LABORATORY DATA: January 24, 2019: White count 5.6, hemoglobin 9.9. Sodium 126, potassium 3.3, chloride 84, carbon dioxide 31, BUN 57, creatinine 1.72, glucose 80, AST 62, ALT 56, albumin 3.6. ASSESSMENT AND PLAN: 1. Acute kidney injury/on top of his chronic renal failure - superimposed prerenal azotemia, stable renal function in a background of his current diuretic regimen. No changes to be made. 2. Congestive heart failure, clinically much improved. The patient is diuresing. We will change IV Lasix to p.o. Lasix, but we will continue at the same dose and frequency. Continue metolazone. 3. Hyponatremia - This is most likely dilutional. The metolazone may also be contributing to this. The plan is simply to observe it. Continue free water restriction. 4. Decreased ejection fraction - the patient is being considered for a possible AICD placement/LifeVest placement. 5. Obstructive sleep apnea, on CPAP. Pulmonary is following. 6. Agree with current management. Job ID: [id number]
--- NOTE | 2019-01-26 12:17 | PRG ---
DATE OF SERVICE: 01/26/2019 SUBJECTIVE: Sharif Gant has no complaints. Continues to have negative fluid balance, it is -1680. Coming in today, somehow his weight is unchanged. OBJECTIVE: LUNGS: Remarkable for fine crackles at both bases. Tubular breath sounds at the right base. HEART: Regular rhythm. ABDOMEN: Soft and nontender. EXTREMITIES: Without asymmetry. LABORATORY DATA: White count 5.6, hemoglobin 9.9, platelets 306. Two days ago; sodium 126, potassium 3.3, chloride 84, bicarb 31, BUN 57, creatinine 1.72, AST 62, ALT 56 with alkaline phosphatase 376. IMPRESSION AND PLAN: 1. Congestive heart failure, clinically improving. 2. Pulmonary hypertension. 3. Sleep apnea. 4. Status post liver transplantation. 5. Marginally elevated liver enzymes, likely secondary to hepatic congestion. I will have Gastroenterology give us an opinion about this. 6. Hyponatremia. Make sure cortisol level and TSH have been done, so I will check these. Job ID: [id number]
--- NOTE | 2019-01-26 12:21 | PRG ---
DATE OF SERVICE: 01/26/2019 SUBJECTIVE: Mr. Gant continues to diurese. His lungs today sound better. No current complaints. Ectopy has been less. OBJECTIVE: VITAL SIGNS: Blood pressure 114/65, pulse 63, and respirations 20. LUNGS: Crackles, but improved on left versus right. Decreased breath sounds on right secondary to elevated hemidiaphragm. HEART: Irregularly irregular. ABDOMEN: Soft, nontender, and nondistended. EXTREMITIES: 1+ pitting edema. PERTINENT LABORATORY DATA: Hemoglobin 9.9. Creatinine 1.72, GFR 40, and AST/ALT 62/56 with an alkaline phosphatase of 376. IMPRESSION: 1. Nonischemic cardiomyopathy. 2. Pulmonary hypertension. 3. Obstructive sleep apnea. 4. Previous history of liver transplant. 5. Nonsustained VT. RECOMMENDATION: 1. Continue diuresis. 2. Continue Dobutrex. 3. I discussed case with Dr. Wiley. ICD appears amenable. We will discontinue abciximab. Job ID: [id number]
--- NOTE | 2019-01-26 14:35 | PRG ---
DATE OF SERVICE: 01/26/2019 SUBJECTIVE: Mr. Gant is sitting up in the chair, resting. He appears to be a little bit tired while sitting up. OBJECTIVE: VITAL SIGNS: His blood pressure is 114/70, pulse 84 and regular, and O2 saturation is 98%. GENERAL: He is alert, appears to be a little bit tired. No medical complaints. LUNGS: Bilateral breath sounds. HEART: Reveals an irregularly irregular rhythm. LABORATORY DATA: Sodium 126, potassium 3.3, chloride 84, CO2 of 31, BUN 57, and creatinine 1.72. I's and O's fluid balance, weight 211 pounds. IMPRESSION: Fluid overload syndrome, status post liver transplant, and history of atrial fibrillation. PLAN: He still appears to be diuresing. We will continue current therapy. I have placed recommendations and orders for rehab placement. I felt, once he is out of the hospital, he will not be a candidate for home therapy. I feel like rehab will be a better place for him to be. Job ID: [id number]
[2019-01-26] MEDS ORDERED: Furosemide 40 MG/4 ML VIAL SLOW IVP SCH (16:45)
[2019-01-26] MEDS: Insulin Regular 300 UNITS/3 ML VIAL SC PRN ×2 (17:24→21:13)
[2019-01-26] MEDS: DOBUTamine 500 mg/250 ml 500 MG in Premix Bag 1 BAG IVPB SCH (21:11)
[2019-01-26] MEDS: Insulin Glargine 12 UNITS in Pre-Filled Syringe 1 EACH SC SCH (21:12)
[2019-01-26] MEDS: Rosuvastatin 10 MG TAB PO SCH (21:12)
[2019-01-26] MEDS: Multivit, Therapeutic 1 TAB PO SCH (21:13)
[2019-01-26] MEDS: Furosemide 40 MG/4 ML VIAL SLOW IVP SCH (22:08)
--- NOTE | 2019-01-26 23:15 | CON ---
DATE OF CONSULTATION: 01/26/2019 HISTORY OF PRESENT ILLNESS: I am seeing Mr. Gant at [facility] ICU as an electrophysiology client development consultant. His problems are: 1. Acute on chronic systolic congestive heart failure with worsening LVEF. a. Prior history of non ischemic cardiomyopathy. LVEF worsened to 25% to 30%. Severe left atrial enlargement. Moderate MR, [id number] TR, mildly elevated pulmonary pressures on echo 01/21/2019. b. Nonocclusive coronary artery disease on left heart catheterization on 2018. 2. Chronic atrial fibrillation about 5 years duration, it is usually slow ventricular rate response. 3. Long history of nonsustained atrial tachycardia, now recurrent and worsening with IV Dobutrex administration. 4. History of liver disease, status post liver transplant. 5. History of pulmonary hypertension and history of obstructive sleep apnea. ALLERGIES: NONE NOTED. MEDICATIONS: At home include: 1. Tacrolimus. 2. Amlodipine. 3. Multivitamin. 4. Calcium. 5. Calcitriol. 6. Apixaban. 7. Alendronate. 8. Magnesium. 9. Rosuvastatin. 10. Sitagliptin. 11. Insulin. 12. Metolazone. 13. Furosemide. SUBJECTIVE: Mr. Gant is here with progressive dyspnea. He was admitted after the symptoms persisted eventually despite metolazone. Process Artist had also seen him and not much relief was noted. In the ER, chest x-ray was concerning about pulmonary edema and pleural effusions. Renal insufficiency and significant elevated BNP. He was admitted and Dobutrex was initiated. LVEF is found to be severely reduced. On monitoring, he continues to have atrial fibrillation now though with improved ventricular rate response, but no tachycardia. He also had runs of nonsustained wide-complex rhythms. He does not pass out no stroke-like symptoms. No neurological deficits. No fever, chills, cough and rest of 12-point review of systems is unremarkable. PAST MEDICAL HISTORY: As above. SOCIAL HISTORY: The patient is smoking EtOH or drug abuse. FAMILY HISTORY: Noncontributory. OBJECTIVE DATA: VITAL SIGNS: Blood pressure is currently 111/65, heart rate 61 , respirations 17, temperature 97.7 degrees Fahrenheit. GENERAL: Alert and oriented man, in no apparent distress. NECK: Supple. Jugular veins still distended. CHEST: With dullness at the bases. Crepitation heard over the dull areas. HEART: Sounds are irregularly irregular. S1 and S2 are variable. S3 gallop is heard. The PMI is nonpalpable. ABDOMEN: Benign. Bowel sounds positive. Hepatosplenomegaly is difficult to examine due to obesity. EXTREMITIES: Lower extremities without edema, clubbing, or cyanosis. NEUROLOGIC: The patient is nonfocal. MUSCULOSKELETAL: Without joint swelling or deformity. SKIN: Without rash. DATABASE: EKG is reviewed revealing atrial fibrillation with occasional PVCs, narrow QRS is seen at 102 milliseconds. LABORATORY DATA: White cell count is 5.6, hemoglobin 9.9, platelet count is 306. Sodium 126, potassium 3.3, BUN is 57, creatinine 1.72. The AST and ALT of 63 and 56 somewhat improving, 86 at peak 2 days ago, alkaline phosphatase is 376. BNP on admit was 2749. IMAGING STUDIES: Chest x-ray showed no pneumothorax. ASSESSMENT AND PLAN: Mr. Gant is a pleasant 68-year-old man with prior history of chronic atrial fibrillation, liver transplant, reduced left ventricular ejection fraction in the past which progressively worsened now in the 25% to 30% range with minimal coronary artery disease on prior heart catheterization. He also has nonsustained ventricular tachyarrhythmia runs in the past, which continues today. He previously had a slow ventricular response with atrial fibrillation. His renal function worsened recently and that precluded his CONNIE inhibitor therapy. Postoperatively, his bradycardia did not allow for beta-lalitha therapy either. He is on otherwise maximized heart failure management mostly with diuretics. I agree with the potential benefit from prophylactic implantable cardioverter-defibrillator implant. His QRS is very narrow when conducted and RV pacing will likely not benefit. On the other hand, he might have significant bradycardia requiring pacing in the future. If possible to perform His bundle or Biv pacing, might be beneficial for him. On the other hand, hence the acute fluid overload for now he is not ready for a procedure in the next day or two. Further optimization and consideration of His bundle pacer defibrillator implant could be considered likely next week. Risks and benefits of procedure were discussed. He understands. He also discussed the need for holding Eliquis prior to the procedure, although it is only for short periods of time possibly night before to allow for an implantable cardioverter-defibrillator implant. Job ID: [id number] [facility]
--- NOTE | 2019-01-27 02:01 | CON ---
DATE OF CONSULTATION: HISTORY OF PRESENT ILLNESS: Mr. Gant is a pleasant 68-year-old gentleman, who has been in the hospital for about a week now with shortness of breath. He was found to have heart failure, they felt probably this may be related to atrial fibrillation, but his notes he has had this for several years. He has significant pulmonary hypertension. He has been started on CPAP for sleep apnea just in the past few weeks. He has some chronic renal failure as well and has been seeing Dr. Willis outpatient and here in the hospital as he was not responding well to diuretic regimen in the outpatient setting and became uremic. PAST MEDICAL HISTORY: 1. 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 He is managed better at [facility] in [place], Dr. Wells. 2. Acute kidney injury. 3. Type 2 diabetes. 4. Atrial fibrillation. 5. Hypertension. 6. Pulmonary hypertension. 7. Congestive heart failure. 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 SOCIAL HISTORY: He is , lives in [place]. Two children. His is a nurse here in the hospital. FAMILY HISTORY: Negative for liver disease or colon cancer. ALLERGIES: NONE KNOWN. HOME MEDICATIONS: 1. Janumet. 2. Alendronate. 3. Prograf 1 mg p.o. b.i.d. good levels. 4. Lisinopril 10 daily. 5. Norvasc. 6. Eliquis. 7. Multivitamin. 8. Calcium. 9. Calcitriol. 10. Crestor. 11. Magnesium 500 mg at bedtime. 12. Lasix 80 mg b.i.d. 13. Zaroxolyn 5 mg daily. 14. Novolin R. 15. Lantus. PRESENT MEDICATIONS: 1. Tylenol. 2. Norvasc. 3. Calcitriol. 4. Dobutamine. 5. Lasix 80 IV q.8. 6. Insulin sliding scale. 7. Magnesium oxide. 8. Zaroxolyn 5 mg p.o. q.a.m. 9. Zofran. 10. Crestor. 11. Tacrolimus 5 mg p.o. b.i.d. PHYSICAL EXAMINATION: GENERAL: The patient is resting comfortably in bed. VITAL SIGNS: Blood pressure 111/70, he has had some pressures lower in the 90s to 50s. He looks pretty isolated however. Pulse 75, temperature 97.7. GENERAL: Mr. Gant is sitting in bed. His and son are at the bedside. He is without complaints. NECK: I can not tell if he has any JVD as he is sitting up in chair and presently he has some crackles in the bases. ABDOMEN: Definitely has some anasarca in the abdominal wall. Again, he is sitting up, so it is really hard to palpate his liver, but does not feel overtly enlarged. EXTREMITIES: He has quite a bit of edema 4+ in the lower extremities. NEUROLOGIC: He is alert and oriented to person, place, and time. LABORATORY DATA: On January 24, 2019, white count 5.6, hemoglobin 9.9, platelet count 306. INR 1.7. Sodium 126, down from 125 on the , which he had about the same his admission. Potassium 3.3, bicarb 31, BUN 57, creatinine 1.7, down from a max of 2.12 on the . Magnesium 2.4. AST is 62, it has bounced around from 20 to 86 since admission, ALT 56, it has bounced around from 16 to 59 since admission. Alkaline phosphatase 376, it was 157 on 08/16/2018. It was 236 on admission, it has bounced around, but is at its max presently. Tacrolimus level 3.2 on 01/21. Hematologic workup negative. HIV negative. ASSESSMENT: This is a 68-year-old gentleman, who is admitted with; 1. Heart failure. It seems he has some significant right heart failure with some pulmonary hypertension and likely has a component of passive congestion of the liver seeing how much edema he has in his legs. I can not see that he would not. He may also have some hepatic ischemic injury. As he has had some low blood pressures with his diuresis, he is now on dobutamine, but it does not look like there has been any prolonged hypotension. 2. With regard to his transplant, as the transplant has been working well for over 11 years, he is on one immunosuppressant. His notes that the dose actually was reduced recently as his renal function worsened a bit, but he has not really had any overt complications recently. When he initially had a transplant, he had a complication of hepatic artery thrombosis, which caused ischemic injury to the bile duct and he had multiple stents over time, but ultimately this was only discontinued last year, it was about 2014 she states. 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 3. Elevated alkaline phosphatase. Differential diagnosis includes slow recurrent stricture in the biliary tree, infiltrative disorder or infection. 4. It could be lung based or bone based. 5. It could be related to passive congestion. RECOMMENDATIONS: We will continue to monitor. We will get an ultrasound Doppler of the liver to evaluate for hepatic vein dilatation and also to check for patency of those vessels and to evaluate for possibilities of intrahepatic ductal dilatation. We will follow along with you. Job ID: [id number]
[2019-01-27] MEDS: Insulin Regular 300 UNITS/3 ML VIAL SC PRN ×2 (06:02→18:03)
[2019-01-27] MEDS: Furosemide 40 MG/4 ML VIAL SLOW IVP SCH ×3 (06:02→22:10)
[2019-01-27 06:10] LABS: #Eosinphils 0.5 thou/uL (0.0-0.7); #Lymphocytes 0.6 thou/uL (1.20-3.40); #Monocytes 0.5 thou/uL (0.11-0.59); #Neutrophils 5.5 thou/uL (1.40-6.50); %Basophils 0.5 % (0.0-1.0); %Eosinophils 7.1 % (0.0-10.0); %Lymphocytes 7.8 % (21.0-51.0); %Monocytes 7.4 % (0.0-10.0); %Neutrophils 77.3 % (42.0-75.0); Hemoglobin 9.6 g/dL (14.0-18.0); Mean Corpuscular HGB CONC 32.9 g/dL (32.0-36.0); Mean Corpuscular Hemoglobin 28.3 pg (27.0-31.0); Mean Corpuscular Volume 85.8 fL (78.0-98.0); Mean Platelet Volume 6.8 fL (7.4-10.4); Platelet Count 341 thou/uL (130-400); RBC Distribution Width 16.4 % (11.5-14.5); Red Blood Cell (RBC) Count 3.39 mill/uL (4.70-6.10); White Blood Cell (WBC) Count 7.1 thou/uL (4.8-10.8)
[2019-01-27 06:27] LABS: ALT (SGPT) 48 U/L (8-55); AST (SGOT) 49 U/L (5-34); Albumin 3.5 g/dL (3.4-4.8); Alkaline Phosphatase 369 U/L (40-150); Anion Gap 13 mmol/L (10-20); BUN (Urea Nitrogen) 65 mg/dL (8.4-25.7); Bilirubin, Total 0.7 mg/dL (0.2-1.2); Calc. Creatinine Clearance 49 mL/min (70-130); Calcium 9.8 mg/dL (7.8-10.44); Carbon Dioxide 30 mmol/L (23-31); Chloride 86 mmol/L (98-107); Estimated GFR-MDRD 35; Globulin 3.4 g/dL (2.4-3.5); Glucose 171 mg/dL (80-115); Magnesium 2.5 mg/dL (1.6-2.6); Potassium 3.4 mmol/L (3.5-5.1); Protein, Total 6.9 g/dL (5.8-8.1); Sodium 126 mmol/L (136-145)
[2019-01-27] MEDS: Metolazone 2.5 MG TAB PO SCH (08:30)
[2019-01-27] MEDS: Tacrolimus 1 MG CAP PO SCH ×2 (08:31→22:16)
[2019-01-27] MEDS: Amlodipine 5 MG TAB PO SCH (08:31)
[2019-01-27] MEDS: Potassium Chloride 20 MEQ TAB PO SCH ×2 (08:31→22:09)
[2019-01-27] MEDS: Calcitriol 0.25 MCG CAP PO SCH (08:31)
--- NOTE | 2019-01-27 09:28 | RAD ---
Chest AP view INDICATION: CHF COMPARISON: January 24, 2019 FINDINGS: Lungs:There is worsening perihilar edema. Cardiac silhouette:Worsening cardiomegaly Pulmonary vasculature:Worsening pulmonary vascular congestion. Pleural spaces:There are enlarging [id number] right and small left pleural effusions. Upper abdomen:No abnormality seen. Osseous structures: No acute osseous abnormality. Additional findings:None. IMPRESSION: Worsening CHF
[2019-01-27] MEDS: Insulin Glargine 10 UNITS in Pre-Filled Syringe 1 EACH SC SCH (09:29)
--- NOTE | 2019-01-27 09:41 | ULT ---
HEPATIC SONOGRAM WITH DUPLEX EVALUATION: HISTORY: Abnormal liver function tests. Prior liver transplant. FINDINGS: Gallbladder not present. Common duct is 0.5 cm. Transplanted liver tissue has a homogeneous echotex ture. No intrahepatic biliary dilatation or focal mass. No free fluid in the abdomen. Right pleura l fluid is partially visualized. The spleen measures up to 10.2 cm. Good color and spectral Doppler flow within the hepatic and splenic arteries. Portal venous flow is towards the liver. Hepatic venous flow is towards the IVC. IMPRESSION: 1. No evidence of portal venous hypertension. 2. Right pleural fluid/effusion. POS: TPC
--- NOTE | 2019-01-27 10:01 | PRG ---
DATE OF SERVICE: 01/27/2019 SERVICE: Renal Medicine. SUBJECTIVE: Mr. Gant is a 68-year-old white male with known history of liver transplant, CHF, history of pulmonary hypertension, obstructive sleep apnea, chronic renal failure. He was initially seen for an acute kidney injury. He was also noted to be refractory to diuretics in the outpatient setting, and for that reason, he was admitted for further diuresis. He has been diuresing well in the last several days. Renal function has been stable, except this morning it was noted that the creatinine was slightly higher at 1.89, and usually, he has been averaging about 1.72. This could be a reflection of the current diuretic regimen. A chest x-ray will be done this morning. If the chest x-ray has improved, we may need to slow down on his IV diuretics. In addition, the patient was seen by Dr. Wiley for evaluation to see if the patient maybe a candidate for AICD. Recent benefits were explained to the patient and to the . This morning, he voices no new complaints. He denies any worsening shortness of breath. OBJECTIVE: VITAL SIGNS: Blood pressure is 115/71, heart rate is 68, respiratory rate is 19, and pulse ox is 99%. GENERAL: The patient is awake, sitting comfortable, not in overt distress. SKIN: Adequate turgor. HEENT: Pinkish conjunctivae. Anicteric sclerae. NECK: No neck mass. No carotid bruits. No JVD. CHEST: No deformities. LUNGS: Decreased breath sounds. HEART: Normal sinus rhythm. No murmurs. No gallops. No rubs. ABDOMEN: Globular, soft, nontender. No masses. EXTREMITIES: Positive for edema. MEDICATIONS: Medications of January 27, 2019, reviewed. LABORATORY DATA: Laboratories of January 27, 2019; white count 7.1, hemoglobin 9.6. Sodium 136, potassium 3.4, chloride 86, carbon dioxide 30, BUN 65, creatinine 1.89, calcium 9.8, AST 49, ALT 48, albumin 3.5, cortisol 17, TSH 1.6. ASSESSMENT AND PLAN: 1. Chronic renal failure/acute kidney injury-slightly higher creatinine of 1.8 from 1.7 yesterday. This could simply be a reflection of his diuretic regimen. For the moment, we will continue current diuretic regimen. We will review a chest x-ray. If there is an improvement radiographically, we may need to decrease the dose of the Lasix from 80 mg IV q.8 to a b.i.d. dosing. He will continue Zaroxolyn. 2. Decreased ejection fraction-the patient has been evaluated by Dr. Wiley for a possible AICD placement. 3. Right heart failure/pulmonary hypertension. Continue supportive care. Currently, on BiPAP. 4. Congestive heart failure, clinically improving. Continue current diuretic regimen. Review chest x-ray today. Job ID: [id number]
--- NOTE | 2019-01-27 12:12 | PRG ---
DATE OF SERVICE: 01/27/2019 SUBJECTIVE: Mr. Gant is sitting up. He feels a little better today. He is still on dobutamine drip. OBJECTIVE: VITAL SIGNS: Blood pressure 115/71. I and O, negative fluid balance of 621, but has gained a pound. LUNGS: Reveal bilateral breath sounds. HEART: Reveals rhythm without murmurs. LABORATORY DATA: Hemoglobin 9.6, hematocrit 29.1. Sodium 126, potassium 3.4, creatinine 1.89, and blood sugars out of control. Abdominal ultrasound is pending. IMPRESSION: This is a 68-year-old male with fluid overload syndrome, cardiomyopathy, and atrial fibrillation. He is now suffering from generalized deconditioning. PLAN: The patient is still responding well to therapy. longterm view is that he will need rehab placement after all diuresing and other procedures that have been planned, have been done. Job ID: [id number]
[2019-01-27] MEDS ORDERED: Spironolactone 25 MG TAB PO SCH (12:30)
[2019-01-27] MEDS: Magnesium Oxide 400 MG TAB PO SCH ×2 (12:37→18:03)
--- NOTE | 2019-01-27 13:29 | PRG ---
DATE OF SERVICE: 01/27/2019 SUBJECTIVE: Mr. Gant is continued to be dyspneic with minimal exertion.He does not pass out. No stroke-like symptoms. No neurological deficits are felt. Still in fluid overload and is receiving dobutamine and diuretics to improve his volume status. No angina. No CHF. No palpitations. Heart rates are reasonable. No bleeding issues. REVIEW OF SYSTEMS: Rest of 12-point review of systems is unremarkable. OBJECTIVE DATA: VITAL SIGNS: Blood pressure is 102/64, heart rate is 66, respiratory rate is 22, and temperature 98.5 degrees Fahrenheit. GENERAL: Alert and oriented obese man, in no apparent distress. NECK: Supple. Jugular vein is still slightly distended. Hepatojugular reflux is positive. CHEST: Coarse with dullness especially in the right base with slight crepitation sounds above the dullness suggestive of atelectasis/fluid loading still present in the lungs. HEART: Sounds are irregularly irregular. S1 and S2 are variable without any murmur or gallop. ABDOMEN: Mildly distended. Bowel sounds positive. EXTREMITIES: Lower extremities with 1+ to 2+ bilateral edema. DIAGNOSTIC DATA: EKGs revealed continued atrial fibrillation, frequent PVCs, short nonsustained ventricular arrhythmia runs are seen. White count 7.1, hemoglobin 9.6, and platelet count is 341. INR is 1.7. Sodium 126, potassium 3.4, BUN is 65, creatinine is 1.89 and just slightly worsened BUN from yesterday. ASSESSMENT AND PLAN: Mr. Gant is a 68-year-old man with history of liver transplant, though with previously mild reduced left ventricular function, chronic atrial fibrillation, mild bradycardia, now left ventricular ejection fraction has markedly worsened. He has florid congestive heart failure symptoms and requiring IV pressors, Dobutrex for improved diuresis. So far, large strives with the diuretics are made. Again, we discussed the pros and cons about long-term protection from ventricular arrhythmias with implanted pacemaker defibrillator. Also, we discussed the potential benefit from His bundle pacing to improve his heart rate response when off Dobutrex. He needs to continue Eliquis in the meantime, but consider holding it on the day of procedure on the night before. At this point, I think he will need further stabilization. If improving by the next Wednesday, we will plan to have the procedure done by Wednesday. Job ID: [id number] MTDD
--- NOTE | 2019-01-27 16:14 | PRG ---
DATE OF SERVICE: 01/27/2019 SUBJECTIVE: The patient is sitting up in the big chair. Looks tired, but without any dyspnea or distress. He is eating well per family. He denies any nausea, vomiting, or abdominal pain. OBJECTIVE: VITAL SIGNS: Blood pressure is 119/66, pulse of 78, temperature is 99.1. GENERAL: He is alert, in no distress. HEENT: Shows anicteric sclerae. CV: Shows normal S1, S2. Regular rate and rhythm. CHEST: Shows breath sounds. Poor excursion. ABDOMEN: Protuberant, but no distention. No tympany. He has active bowel sounds. There is no tenderness. EXTREMITIES: Show 2+ pedal edema. LABORATORY DATA: White count is 7.1, hemoglobin 9.6, and platelet count 341. His bilirubin is 0.7, AST is 49, ALT is 48, alkaline phosphatase 369. IMAGING STUDIES: Abdominal ultrasound showed normal liver echotexture. No intrahepatic biliary ductal dilatation. Common duct measures 5 mm. ASSESSMENT: 1. Elevation of alkaline phosphatase, likely nonspecific, stable over the last 4 days. There is no evidence of biliary obstruction based on ultrasound. His alkaline phosphatase could be from other fractions. The patient does have a history of biliary stricture after transplant, but this has been many years ago. There is no evidence of biliary obstruction or any stricturing problem at the present time. 2. His liver enzymes are mildly elevated, but not enough to suggest any evidence of liver rejection. There are no signs of any significant liver congestion from heart failure at this point. Synthetically, his liver function is intact. 3. Volume overload/congestive heart failure. RECOMMENDATION: 1. No other GI diagnostic evaluation at the present time other than continuing to trend his liver profile. 2. Continue Tacrolimus 1 mg p.o. b.i.d. 3. I will follow up next week, Dr. Bradshaw is on-call for GI this weekend, please call if needed. Job ID: [id number] [facility]ISCH HOSPITALYessenia
--- NOTE | 2019-01-27 19:48 | PRG ---
DATE OF SERVICE: 01/27/2019 SUBJECTIVE: Sharif Gant has no new complaints. OBJECTIVE: VITAL SIGNS: He is afebrile, heart rate is 80, and blood pressure 132/76. Intake and output are -621. His dobutamine dose was increased earlier. Dr. Culp saw him and feels that his liver enzyme abnormalities are somewhat related to hepatic congestion that there are no problems with his transplant at this time. He is tentatively on the schedule I believe for defibrillator at some point, but not this weekend. His anticoagulants have been discontinued, anticipating that might be done today I believe, but this will be done till next week. We will continue with gentle diuresis and monitoring of his renal function with diuresis. His creatinine is essentially stable at 1.89 today. Job ID: [id number]
[2019-01-27] MEDS: Multivit, Therapeutic 1 TAB PO SCH (22:09)
[2019-01-27] MEDS: Apixaban 5 MG TAB PO SCH (22:09)
[2019-01-27] MEDS: Rosuvastatin 10 MG TAB PO SCH (22:10)
[2019-01-27] MEDS: Insulin Glargine 12 UNITS in Pre-Filled Syringe 1 EACH SC SCH (22:16)
[2019-01-28] MEDS: Furosemide 40 MG/4 ML VIAL SLOW IVP SCH ×3 (05:23→21:22)
[2019-01-28 05:38] LABS: ALT (SGPT) 48 U/L (8-55); AST (SGOT) 45 U/L (5-34); Albumin 3.4 g/dL (3.4-4.8); Alkaline Phosphatase 354 U/L (40-150); Anion Gap 14 mmol/L (10-20); BUN (Urea Nitrogen) 63 mg/dL (8.4-25.7); Bilirubin, Total 0.8 mg/dL (0.2-1.2); Calc. Creatinine Clearance 54 mL/min (70-130); Calcium 9.5 mg/dL (7.8-10.44); Carbon Dioxide 31 mmol/L (23-31); Chloride 84 mmol/L (98-107); Estimated GFR-MDRD 39; Globulin 3.4 g/dL (2.4-3.5); Glucose 122 mg/dL (80-115); Magnesium 2.4 mg/dL (1.6-2.6); Potassium 3.3 mmol/L (3.5-5.1); Protein, Total 6.8 g/dL (5.8-8.1); Sodium 126 mmol/L (136-145)
[2019-01-28] MEDS: Spironolactone 25 MG TAB PO SCH (07:42)
[2019-01-28] MEDS: Metolazone 2.5 MG TAB PO SCH (07:43)
[2019-01-28] MEDS: DOBUTamine 500 mg/250 ml 500 MG in Premix Bag 1 BAG IVPB SCH (08:01)
[2019-01-28] MEDS: Tacrolimus 1 MG CAP PO SCH ×2 (09:11→21:21)
[2019-01-28] MEDS: Potassium Chloride 20 MEQ TAB PO SCH ×2 (09:11→21:22)
[2019-01-28] MEDS: Insulin Glargine 10 UNITS in Pre-Filled Syringe 1 EACH SC SCH (09:11)
[2019-01-28] MEDS: Calcitriol 0.25 MCG CAP PO SCH (09:11)
[2019-01-28] MEDS: Apixaban 5 MG TAB PO SCH ×2 (09:12→21:23)
--- NOTE | 2019-01-28 10:05 | PRG ---
DATE OF SERVICE: 01/28/2019 SUBJECTIVE: Mr. Gant is a 68-year-old male, seen by the Renal Service for his acute kidney injury on top of his chronic renal failure. He was initially admitted for CHF. Repeat chest x-ray yesterday showed worsening CHF radiographically. His dobutamine has further been increased. He has been evaluated by Dr. Wiley and the plan is for him to place an AICD next week. No new complaints today. The patient continues to diurese. The patient voices no new complaints. OBJECTIVE: VITAL SIGNS: Blood pressure 111/66, heart rate 74, respiratory rate 24, pulse ox 99%. GENERAL: Noted to be awake, alert, comfortable, not in distress. He is sitting. SKIN: Adequate turgor. HEENT: Slightly pale conjunctivae. Anicteric sclerae. NECK: No neck mass. No carotid bruits. No JVD. CHEST: No deformities. LUNGS: Decreased breath sounds. HEART: Normal sinus rhythm. No murmurs, no gallops, no rubs. ABDOMEN: Globular, soft, nontender. No masses. EXTREMITIES: Positive for edema. MEDICATIONS: Medications of January 28, 2019, were reviewed. LABORATORY DATA: Laboratories of January 27, 2019; white count 7.1, hemoglobin 9.6, hematocrit 29.1. Sodium 126, potassium 3.3, chloride 84, carbon dioxide 31, BUN 63, creatinine 1.74, AST 45, ALT 40, albumin 3.4. ASSESSMENT AND PLAN: 1. Acute kidney injury/chronic renal failure-stable renal function. Creatinine 1.7. He is relatively unchanged. Continue current management. No indication for any dialytic intervention. Continue current diuretic regimen. 2. Congestive heart failure. Continuing Lasix at 80 mg IV q.8 and Zaroxolyn. No changes will be made with the current diuretic regimen. The patient is making adequate urine output. I feel that the IV dobutamine is helping renal perfusion. 3. Decreased ejection fraction-the patient evaluated by Cardiology. He is a candidate for automatic implantable cardioverter-defibrillator placement. 4. Status post liver transplant, stable. 5. Overall prognosis remains guarded with this patient. Job ID: [id number]
[2019-01-28] MEDS: Insulin Regular 300 UNITS/3 ML VIAL SC PRN ×3 (11:18→21:23)
--- NOTE | 2019-01-28 11:26 | PRG ---
DATE OF SERVICE: 01/28/2019 PRIMARY CARE PHYSICIAN: Dr. Benjie Juan. SUBJECTIVE: The patient states that he is feeling well. He denies chest pain, shortness of breath. States that his appetite is good. His breathing is controlled with BiPAP. Reviewed reports from specialist and appreciate their input. OBJECTIVE: VITAL SIGNS: Temperature 99.3 which is his T-max, pulse of 71, respirations 23 to 25, blood pressure 124/67, pulse ox is 95% on room air. GENERAL: He is awake and alert. Speech is clear. He appears comfortable in his recliner. NECK: Supple. HEART: Irregularly irregular. LUNGS: Clear anteriorly. ABDOMEN: Soft. EXTREMITIES: With 2+ edema bilaterally. LABORATORY DATA: Sodium 126, potassium 3.3, chloride 84, CO2 of 31, BUN and creatinine are 63 and 1.74 with a GFR of 39 which is improved from yesterday. Accu-Cheks of 206, 188, 133, 174. Calcium of 9.5, magnesium 2.4. AST and ALT are 45 and 48, which has been trending downward over the past few days. Alkaline phosphatase is 354 which has been stable as well. Albumin at 3.4. Chest x-ray from yesterday, however, showed worsening CHF. Abdominal ultrasound with no evidence of portal hypertension, right pleural fluid and effusion. ASSESSMENT AND PLAN: This is a 68-year-old gentleman, status post liver transplant, admitted with CHF exacerbation, dependent on Lasix, dobutamine, and Zaroxolyn. Awaiting possible implantable cardio for defibrillator placement next week. 1. Acute kidney injury with chronic kidney failure. Appreciate Dr. Willis. No changes at this point. No evidence of uremic changes in his mentation. 2. Congestive heart failure. We will continue Lasix and Zaroxolyn and dobutamine for his decreased ejection fraction. Further plan per Cardiology. 3. Decreased ejection fraction. Appears as Dr. Wiley is planning for implantable cardioverter-defibrillator placement next week. I will plan on discontinuing his anticoagulation the day before. 4. Type 2 diabetes. Continue his Accu-Cheks. We will adjust his insulin to prevent hyperglycemia. 5. Status post liver transplant. We will continue Prograf. 6. Elevated liver function test. Appreciate GI evaluation, appears to be more likely related to his congestive heart failure. Job ID: [id number]
[2019-01-28] MEDS: Magnesium Oxide 400 MG TAB PO SCH ×2 (12:34→16:38)
[2019-01-28] MEDS ORDERED: hydrALAZINE 25 MG TAB PO SCH (15:45)
--- NOTE | 2019-01-28 17:53 | PRG ---
DATE OF SERVICE: 01/28/2019 SUBJECTIVE: Sharif Gant continues to improve slowly. His intake and output are -2160 mL. His weight is 205, down from 212 yesterday, which obviously cannot be correct. His lungs are still remarkable for crackles at his bases. Heart, regular rhythm. Abdomen, soft. We placed an external cardiac output monitor on him. His cardiac output is 4 L a minute. LABORATORY DATA: Sodium is 126, potassium is 3.3, chloride is 84, bicarb is 31, BUN is 63, creatinine is 1.74, which is more or less stable. TSH is 1.6. His cortisol was 17 yesterday morning. IMPRESSION: 1. Congestive heart failure. 2. Hyponatremia associated with congestive heart failure. 3. Chronic kidney disease. 4. Status post hepatic transplant. 5. History of biliary stenosis and no evidence of recurrence. 6. [id number]-[id number] kidney disease. 7. Diabetes. PLAN: We will continue supportive care. We will check a chest x-ray in the morning. Continue diuresis. As we wean his dobutamine, we will monitor his cardiac output. Job ID: [id number]
[2019-01-28] MEDS: Rosuvastatin 10 MG TAB PO SCH (21:22)
[2019-01-28] MEDS: hydrALAZINE 25 MG TAB PO SCH (21:22)
[2019-01-28] MEDS: Multivit, Therapeutic 1 TAB PO SCH (21:22)
[2019-01-28] MEDS: Insulin Glargine 12 UNITS in Pre-Filled Syringe 1 EACH SC SCH (21:23)
[2019-01-29] MEDS: DOBUTamine 500 mg/250 ml 500 MG in Premix Bag 1 BAG IVPB SCH (01:34)
[2019-01-29 06:18] LABS: ALT (SGPT) 56 U/L (8-55); AST (SGOT) 58 U/L (5-34); Albumin 3.6 g/dL (3.4-4.8); Alkaline Phosphatase 379 U/L (40-150); Anion Gap 15 mmol/L (10-20); BUN (Urea Nitrogen) 60 mg/dL (8.4-25.7); Bilirubin, Total 0.9 mg/dL (0.2-1.2); Calc. Creatinine Clearance 54 mL/min (70-130); Calcium 9.6 mg/dL (7.8-10.44); Carbon Dioxide 30 mmol/L (23-31); Chloride 84 mmol/L (98-107); Estimated GFR-MDRD 41; Globulin 3.5 g/dL (2.4-3.5); Glucose 90 mg/dL (80-115); Magnesium 2.3 mg/dL (1.6-2.6); Potassium 3.7 mmol/L (3.5-5.1); Protein, Total 7.1 g/dL (5.8-8.1); Sodium 125 mmol/L (136-145)
[2019-01-29] MEDS: Furosemide 40 MG/4 ML VIAL SLOW IVP SCH ×3 (06:28→23:19)
--- NOTE | 2019-01-29 08:56 | RAD ---
Exam: Chest one view portable: HISTORY: Congestive heart failure COMPARISON: 01/27/2019 FINDINGS: Persistent but slightly improving bilateral alveolar and interstitial opacity changes with prominent right hemidiaphragm elevation and borderline cardiomegaly. IMPRESSION: Slight improvement in the appearance the chest. Continued short-term follow-up.
[2019-01-29] MEDS: Calcitriol 0.25 MCG CAP PO SCH (08:58)
[2019-01-29] MEDS: Tacrolimus 1 MG CAP PO SCH ×2 (08:58→20:34)
[2019-01-29] MEDS: Apixaban 5 MG TAB PO SCH ×2 (08:58→20:34)
[2019-01-29] MEDS: Potassium Chloride 20 MEQ TAB PO SCH ×2 (08:59→20:34)
[2019-01-29] MEDS: Spironolactone 25 MG TAB PO SCH (08:59)
[2019-01-29] MEDS: hydrALAZINE 25 MG TAB PO SCH ×3 (08:59→20:32)
[2019-01-29] MEDS: Insulin Glargine 14 UNITS in Pre-Filled Syringe 1 EACH SC SCH (09:00)
--- NOTE | 2019-01-29 10:05 | PRG ---
DATE OF SERVICE: 01/29/2019 SUBJECTIVE: Mr. Gant is a 68-year-old white male, who is status post liver transplant, admitted for congestive heart failure, and being followed up by the Renal Service for his acute kidney injury on top of his chronic renal failure. He is currently on IV dobutamine drip. He is also on a diuretic regimen. He has also been started recently on spironolactone. He voices no new complaints. He denies any chest pain, shortness of breath, nausea, or vomiting. OBJECTIVE: VITAL SIGNS: Blood pressure is 120/66, heart rate 74, respiratory rate 23, pulse ox 99%. GENERAL: Noted to be awake, sitting comfortable, not in distress. SKIN: Adequate turgor. HEENT: He has a slightly pale conjunctivae. Anicteric sclerae. NECK: No neck mass. No carotid bruits. No JVD. CHEST: No deformities. LUNGS: Right, basilar crackle. Left, clear breath sounds. HEART: Normal sinus rhythm. No murmur. No gallops. No rubs. ABDOMEN: Globular. Soft, nontender. No masses. EXTREMITIES: Positive for edema. MEDICATIONS: Medications of January 29, 2019, were reviewed. LABORATORY DATA: Laboratories of January 29, 2019, sodium 125, potassium 3.7, chloride 84, carbon dioxide 30, BUN 60, creatinine 1.66, magnesium 2.3, AST 58, ALT 56, albumin is 3.6. ASSESSMENT AND PLAN: 1. Acute kidney injury on top of his chronic renal failure. Stable renal function. Currently, tolerating current diuretic regimen. He is on Lasix 80 mg IV q.8 as well as on metolazone. 2. Hyponatremia-this is most likely dilutional hyponatremia. 3. Congestive heart failure, clinically improving, on IV dobutamine. Currently, on a diuretic regimen. 4. There is no indication for any dialytic intervention with this patient. Overall, prognosis remains guarded. 5. Cardiology is following for a planned automatic implantable cardioverter-defibrillator placement this coming week. Job ID: [id number]
--- NOTE | 2019-01-29 11:47 | PRG ---
DATE OF SERVICE: 01/29/2019 PRIMARY CARE PHYSICIAN: Dr. Benjie Juan. SUBJECTIVE: The patient is doing fine. He denies chest pain or shortness of breath. His appetite is better. He is resting well. Breathing is controlled with BiPAP during naps and at night time. OBJECTIVE: VITAL SIGNS: Temperature 98.5, pulse is 66, respirations 14, blood pressure 121/72, pulse ox 93% on room air. GENERAL: He is awake and alert, resting comfortably in no acute distress. NECK: Supple. HEART: Irregularly irregular. LUNGS: Clear anteriorly. ABDOMEN: Soft. EXTREMITIES: 3+ edema. LABORATORY DATA: White blood cell count 7100 on 01/27. Sodium 125, potassium 3.7, chloride 84, CO2 of 30, and BUN and creatinine 16 and 1.66 with a GFR of 41. Accu-Cheks of 98, 185, 154, 158. AST and ALT are 58 and 56, alkaline phosphatase is 379, which is stable. Albumin of 3.6. Chest x-ray from this morning reveals slightly improvement of fluid in the chest. Recommend short-term followup. ASSESSMENT AND PLAN: This is a 68-year-old gentleman, status post liver transplant on anti-rejection medicines, admitted for congestive heart failure exacerbation. 1. Acute on chronic kidney injury. Appreciate Dr. Willis, following closely. The patient seems to be tolerating diuresis with Lasix, metolazone. No need for dialysis at this time. 2. Hyponatremia likely delusional hyponatremia. Dr. Willis recommends continuing diuresis. 3. Congestive heart failure, stable on diuresis and dobutamine. Further plan per Cardiology at this point, monitoring his cardiac output. 4. Chronic atrial fibrillation. Further plan as per Cardiology and Electrophysiology considering implanted pacemaker defibrillator. 5. Type 2 diabetes, seems to be stable at this point. No signs of hyperglycemia. Job ID: [id number]
[2019-01-29] MEDS: Magnesium Oxide 400 MG TAB PO SCH ×2 (12:07→17:53)
[2019-01-29] MEDS: Isosorbide Dinitrate 5 MG TAB PO SCH ×2 (12:10→20:34)
--- NOTE | 2019-01-29 15:09 | PRG ---
DATE OF SERVICE: 01/29/2019 SUBJECTIVE: His dobutamine turned down to 2.5 mcg. Apparently, he was having considerable ventricular ectopy and ventricular tachycardia last night. His cardiac output today is 4.5 by noninvasive monitoring. Blood pressure has been stable. His intake and output, negative 1616. With diuresis, his creatinine remains stable at 1.66. OBJECTIVE: LUNGS: Clear. HEART: Regular rhythm. ABDOMEN: Soft. IMPRESSION: 1. Newly diagnosed cardiomyopathy. 2. Chronic atrial fibrillation, tentatively to be evaluated for pacemaker defibrillator placement later this week. 3. Severe sleep apnea, currently treated with ASV BiPAP. He loves the device and was reminded to wear whenever he naps. 4. Obesity, deconditioning. 5. Status post hepatic transplantation, clinically stable. 6. Elevated liver enzymes are not felt to be related to hepatic rejection. These have been remained stable. 7. History of biliary stenosis, requiring multiple procedures. He is not felt to have any significant biliary stenosis at this time. 8. Pulmonary hypertension at least in part secondary to significant left ventricular systolic dysfunction. Job ID: [id number]
[2019-01-29] MEDS: Insulin Regular 300 UNITS/3 ML VIAL SC PRN (17:50)
[2019-01-29] MEDS: Multivit, Therapeutic 1 TAB PO SCH (20:35)
[2019-01-29] MEDS: Rosuvastatin 10 MG TAB PO SCH (20:35)
[2019-01-29] MEDS: Insulin Glargine 12 UNITS in Pre-Filled Syringe 1 EACH SC SCH (20:35)
[2019-01-30 05:42] LABS: #Eosinphils 0.5 thou/uL (0.0-0.7); #Lymphocytes 0.6 thou/uL (1.20-3.40); #Monocytes 0.6 thou/uL (0.11-0.59); #Neutrophils 5.4 thou/uL (1.40-6.50); %Basophils 0.4 % (0.0-1.0); %Eosinophils 7.6 % (0.0-10.0); %Lymphocytes 7.9 % (21.0-51.0); %Monocytes 8.4 % (0.0-10.0); %Neutrophils 75.7 % (42.0-75.0); Hemoglobin 9.4 g/dL (14.0-18.0); Mean Corpuscular HGB CONC 32.2 g/dL (32.0-36.0); Mean Corpuscular Hemoglobin 27.7 pg (27.0-31.0); Mean Corpuscular Volume 86.2 fL (78.0-98.0); Mean Platelet Volume 6.8 fL (7.4-10.4); Platelet Count 379 thou/uL (130-400); RBC Distribution Width 16.7 % (11.5-14.5); Red Blood Cell (RBC) Count 3.38 mill/uL (4.70-6.10); White Blood Cell (WBC) Count 7.1 thou/uL (4.8-10.8)
[2019-01-30 06:07] LABS: ALT (SGPT) 58 U/L (8-55); AST (SGOT) 58 U/L (5-34); Albumin 3.4 g/dL (3.4-4.8); Alkaline Phosphatase 366 U/L (40-150); Anion Gap 16 mmol/L (10-20); BUN (Urea Nitrogen) 63 mg/dL (8.4-25.7); Bilirubin, Total 0.7 mg/dL (0.2-1.2); Calc. Creatinine Clearance 54 mL/min (70-130); Calcium 9.5 mg/dL (7.8-10.44); Carbon Dioxide 28 mmol/L (23-31); Chloride 86 mmol/L (98-107); Estimated GFR-MDRD 41; Globulin 3.5 g/dL (2.4-3.5); Glucose 127 mg/dL (80-115); Magnesium 2.3 mg/dL (1.6-2.6); Protein, Total 6.9 g/dL (5.8-8.1); Sodium 126 mmol/L (136-145)
[2019-01-30] MEDS: Furosemide 40 MG/4 ML VIAL SLOW IVP SCH ×3 (06:30→21:43)
[2019-01-30] MEDS: Spironolactone 25 MG TAB PO SCH (08:19)
[2019-01-30] MEDS: hydrALAZINE 25 MG TAB PO SCH ×3 (08:21→21:42)
[2019-01-30] MEDS: Isosorbide Dinitrate 5 MG TAB PO SCH ×3 (08:21→21:41)
[2019-01-30] MEDS: Apixaban 5 MG TAB PO SCH ×2 (08:21→21:42)
[2019-01-30] MEDS: Potassium Chloride 20 MEQ TAB PO SCH ×2 (08:22→21:42)
[2019-01-30] MEDS: Calcitriol 0.25 MCG CAP PO SCH (08:22)
[2019-01-30] MEDS: Tacrolimus 1 MG CAP PO SCH ×2 (08:22→21:42)
--- NOTE | 2019-01-30 09:22 | PRG ---
DATE OF SERVICE: 01/30/2019 SUBJECTIVE: Mr. Gant seem to be resting comfortably. No medical complaints are noted. OBJECTIVE: VITAL SIGNS: Blood pressure is 114/68 and pulse 75, irregular. LUNGS: Reveal bilateral breath sounds. HEART: Reveals an irregularly irregular rhythm without murmur, gallops, or rubs. IMAGING DATA: Chest x-ray shows some slight improvement noted in the findings of pulmonary edema. LABORATORY DATA: Hemoglobin 9.4, hematocrit 29.2. Sodium 126, potassium 4.0, measured at 202, down from 218 upon admission. IMPRESSION: Pulmonary edema, cardiomyopathy, atrial fibrillation, Type 2 diabetes mellitus, all appeared to be fairly stable and improving. PLAN: He is for AICD placement later this week. Job ID: [id number]
[2019-01-30] MEDS: Insulin Glargine 14 UNITS in Pre-Filled Syringe 1 EACH SC SCH (09:30)
--- NOTE | 2019-01-30 10:11 | PRG ---
DATE OF SERVICE: 01/30/2019 SUBJECTIVE: The patient remains on an auto SV BiPAP. He is on a continuous cardiac output monitor and on dobutamine drip at 2.5 mcg/kg/minute. He is sleeping. OBJECTIVE: VITAL SIGNS: His temperature is 99, pulse 79, blood pressure 115/58, O2 saturation 99%. He is on the dobutamine drip. Intake for last 24 hours 964, output 2420. Weight 202 pounds. HEENT: Unremarkable. NECK: No JVD. LUNGS: Fairly clear anteriorly. CARDIAC: S1 and S2. Regular with ectopy. ABDOMEN: Soft, nontender. EXTREMITIES: Edematous throughout. LABORATORY DATA: Sodium 126, potassium 4, chloride 86, CO2 of 20, BUN 63, creatinine 1.6, glucose 127, AST 58, ALT 58, alkaline phosphatase 366. White count 7.1, hematocrit 29.2, and platelet count 379. ASSESSMENT: 1. Cardiomyopathy with depressed ejection fraction. 2. Chronic atrial fibrillation. 3. Severe obstructive sleep apnea/central sleep apnea. 4. Obesity. 5. Status post liver transplant. 6. History of biliary stenosis. 7. Pulmonary hypertension. PLAN: 1. The patient will continue auto SV BiPAP during the day and night. 2. Continuing treatment with cardiomyopathy with dobutamine and diuretics. 3. Continue to trend laboratory data. Job ID: [id number]
--- NOTE | 2019-01-30 10:45 | PRG ---
DATE OF SERVICE: 01/30/2019 SUBJECTIVE: Mr. Gant is a 68-year-old male, who was seen by the Renal Service for his acute kidney injury on top of his chronic renal failure. He was admitted for pulmonary edema. Currently, on IV diuretics as well as IV dobutamine. Cardiology has further evaluated this patient. Recommendation is to have an AICD placed. This morning, he voices no new complaints. He denies any chest pain or shortness of breath. OBJECTIVE: VITAL SIGNS: Blood pressure is noted at 106/65 with a heart rate of 73, respiratory rate 19, and pulse ox 96%. GENERAL: Noted to be awake, supine, comfortable, not in distress. SKIN: Adequate turgor. HEENT: He has a slightly pale conjunctivae. Anicteric sclerae. NECK: No neck mass. No carotid bruits. No JVD. CHEST: No deformities. LUNGS: Decreased breath sounds. No wheezing. No crackles. HEART: Normal sinus rhythm. No murmur. No gallops. No rubs. ABDOMEN: Globular, soft, and nontender. No masses. EXTREMITIES: Positive for edema, but no deformities. MEDICATIONS: Medications of January 30, 2019, was reviewed. LABORATORY DATA: Laboratories of January 30, 2019; white count 7.1, hemoglobin 9.4. Sodium 126, potassium 4, chloride 86, carbon dioxide 28, BUN 63, creatinine 1.66, glucose 127, calcium 9.5, AST 58, ALT 58, and albumin 3.4. ASSESSMENT AND PLAN: 1. Acute kidney injury/chronic renal failure - stable renal function. Tolerating current diuretic regimen. No indication for any dialytic intervention. 2. Mild hyponatremia - this is most likely dilutional hyponatremia from the congestive heart failure. We will place this patient on free water restriction of 1 L per day. 3. Congestive heart failure - continue diuretic regimen on IV dobutamine. The patient is diuresing adequately. For possible automatic implantable cardioverter-defibrillator placement this week. Overall, agree with current management. Overall prognosis with this patient remains guarded. Job ID: [id number]
[2019-01-30] MEDS: Insulin Regular 300 UNITS/3 ML VIAL SC PRN (11:39)
[2019-01-30] MEDS: Magnesium Oxide 400 MG TAB PO SCH ×2 (12:42→17:11)
[2019-01-30] MEDS ORDERED: Metolazone 5 MG TAB PO SCH (14:00)
[2019-01-30] MEDS: Insulin Glargine 12 UNITS in Pre-Filled Syringe 1 EACH SC SCH (21:40)
[2019-01-30] MEDS: Rosuvastatin 10 MG TAB PO SCH (21:42)
[2019-01-30] MEDS: Multivit, Therapeutic 1 TAB PO SCH (21:42)
[2019-01-31 05:59] LABS: ALT (SGPT) 55 U/L (8-55); AST (SGOT) 47 U/L (5-34); Albumin 3.4 g/dL (3.4-4.8); Alkaline Phosphatase 360 U/L (40-150); Anion Gap 15 mmol/L (10-20); BUN (Urea Nitrogen) 64 mg/dL (8.4-25.7); Bilirubin, Total 0.7 mg/dL (0.2-1.2); Calc. Creatinine Clearance 49 mL/min (70-130); Calcium 9.4 mg/dL (7.8-10.44); Carbon Dioxide 28 mmol/L (23-31); Chloride 86 mmol/L (98-107); Estimated GFR-MDRD 37; Globulin 3.7 g/dL (2.4-3.5); Glucose 133 mg/dL (80-115); Magnesium 2.5 mg/dL (1.6-2.6); Potassium 4.3 mmol/L (3.5-5.1); Protein, Total 7.1 g/dL (5.8-8.1); Sodium 125 mmol/L (136-145)
[2019-01-31] MEDS: Furosemide 40 MG/4 ML VIAL SLOW IVP SCH ×3 (06:50→21:07)
[2019-01-31] MEDS: Isosorbide Dinitrate 5 MG TAB PO SCH ×3 (08:20→21:09)
[2019-01-31] MEDS: Potassium Chloride 20 MEQ TAB PO SCH ×2 (08:21→21:07)
[2019-01-31] MEDS: hydrALAZINE 25 MG TAB PO SCH ×3 (08:21→21:27)
[2019-01-31] MEDS: Spironolactone 25 MG TAB PO SCH (08:21)
[2019-01-31] MEDS: Calcitriol 0.25 MCG CAP PO SCH (08:21)
[2019-01-31] MEDS: Tacrolimus 1 MG CAP PO SCH ×2 (08:22→21:10)
[2019-01-31] MEDS: Insulin Glargine 14 UNITS in Pre-Filled Syringe 1 EACH SC SCH (08:22)
--- NOTE | 2019-01-31 09:53 | PRG ---
DATE OF SERVICE: 01/31/2019 SUBJECTIVE: Mr. Gant is a 68-year-old male, who is status post liver transplant, chronic renal failure, and admitted for CHF. He was evaluated by Cardiology, started on IV dobutamine. In addition, we are following him up for his chronic renal failure. Renal function has remained stable in spite of the diuretic regimen. However, creatinine was slightly higher today at 1.81. Due to the plan AICD placement, we will leave the current dose of the diuretics as is. No indication for any dialytic intervention. No complaints of chest pain or any worsening shortness of breath. OBJECTIVE: VITAL SIGNS: Blood pressure is 104/63, heart rate 68, respiratory rate 22, and pulse ox 99%. GENERAL: Noted to be awake, sitting comfortable, not in distress. SKIN: Adequate turgor. HEENT: He has a slightly pale conjunctivae. Anicteric sclerae. NECK: No neck mass. No carotid bruits. No JVD. CHEST: No deformities. LUNGS: Clear breath sounds. No wheezing. No crackles. HEART: Normal sinus rhythm. No murmur. No gallops. No rubs. ABDOMEN: Globular, soft, and nontender. No masses. EXTREMITIES: No edema. No deformities. MEDICATIONS: Medications of January 31, 2019, reviewed. LABORATORY DATA: Laboratories of January 30, 2019; white count 7.1, hemoglobin 9.4. On January 31, 2019; sodium 125, potassium 4.3, chloride 86, carbon dioxide 28, BUN 64, creatinine 1.81, glucose 133, GFR 37 mL/minute, magnesium 2.5. AST 47, ALT 55, and albumin 3.4. ASSESSMENT AND PLAN: 1. Congestive heart failure - with the decreased EF. Plan AICD will be placed by Dr. Wiley. Continue current diuretic regimen. 2. Acute kidney injury/chronic renal failure, slightly higher creatinine of 1.8. Due to the plan AICD placement, we will leave current dose of diuretics as is. No indication for any dialytic intervention. Continue supportive care. 3. Status post liver transplant, stable. GI is following. Continue immunosuppressive regimen. 4. Overall agree with current management. Job ID: [id number]
--- NOTE | 2019-01-31 10:36 | PRG ---
DATE OF SERVICE: 01/31/2019 SUBJECTIVE: Mr. Gant seems to be doing better over the weekend. Continue to diurese. His renal function stabilizing. He continues to have intermittent PVCs. No further runs. Atrial fibrillation continues. He seems to be able to lay flat better and rest of 12-point system otherwise unremarkable. OBJECTIVE DATA: VITAL SIGNS: Blood pressure is 103/59, heart rate is 69, respiratory rate is 22, and the patient's temperature is 98.2 degrees Fahrenheit. GENERAL: Alert and oriented man, in no apparent distress. NECK: Supple. Jugular veins not distended. CHEST: Coarse without crackles. Mild right basilar dullness is noted, improved. NEUROLOGIC: The patient is nonfocal. HEART: Sounds are irregularly irregular. S1 and S2 are variable. ABDOMEN: Benign. Bowel sounds are positive. No hepatomegaly noted. Hepatojugular reflux is negative. EXTREMITIES: Lower extremities, 0 to 1+ edema. In's and out's reveal persistent negative fluid balances over last five days negative 1.8 L by the 3rd. Weight is 20 lb down since admission. LABORATORY DATA: White cell count 7.1, hemoglobin 9.4, and platelet count is 379. Sodium 125, potassium 4.3, BUN is 64, creatinine 1.81, AST and ALT are 47 and 55 improved, and alkaline phosphatase 360. Chest x-ray shows slight improvement in the chest from a right hemidiaphragm elevation, and borderline cardiomegaly. ASSESSMENT AND PLAN: Mr. Gant is a pleasant 68-year-old man with prior history of liver transplant, cardiomyopathy, now with worsening LVEF and acute fluid overload, which has improved with dobutamine and IV diuretic regimen. His weight is significantly down. His renal function, although initially was worsened, now stabilized. He is able to lay flat. As we discussed before with him and his , it is reasonable to proceed with an implantable cardioverter-defibrillator implant, hence the persistent cardiomyopathy noted to worsen, LVEF less than 35%. Also, prior history of slow heart beats, now appears to be symptomatic, possibly contributing to his heart failure. Therefore, ventricular pacing is a consideration. His bundle versus Bi-V pacing would be the ideal choice, hence his LV dysfunction. We will plan to proceed with preparation for this, Delicia already in hold. I given dose of Lovenox tonight to minimize chance of clot formation, but hold it on the day of procedure. Risks and benefits of the procedure have been discussed, and he agreed to proceed. Job ID: [id number] [facility]
[2019-01-31] MEDS: Insulin Regular 300 UNITS/3 ML VIAL SC PRN ×2 (11:08→17:01)
[2019-01-31] MEDS: Magnesium Oxide 400 MG TAB PO SCH ×2 (12:36→17:02)
--- NOTE | 2019-01-31 13:59 | PRG ---
DATE OF SERVICE: 01/31/2019 SUBJECTIVE: Mr. Gant is doing better. He appears more lucid. He has no crackles on physical exam, which are significant improvement over the last several days. He continues to diurese. His weight is down to 200 pounds. OBJECTIVE: VITAL SIGNS: Blood pressure 110/68, pulse 68, and temperature afebrile. LUNGS: Decreased breath sounds on right secondary to elevated hemidiaphragm. Clear on the left. HEART: Irregularly irregular. GENERAL: Patient is a pleasant male, who is in no acute distress. The patient appears their stated age. NEUROLOGIC: The patient is alert and oriented x3 with no focal neurologic deficits. HEENT: Sclerae without icterus. Mouth has moist mucous membranes with normal pallor. NECK: No JVD. Carotid upstroke brisk. No bruits bilaterally. BACK: No scoliosis or kyphosis. ABDOMEN: Soft, nontender, nondistended. No peritoneal signs present. No hepatosplenomegaly. No abnormal striae. EXTREMITIES: 2+ femoral and 2+ dorsalis pedis pulses. No cyanosis, clubbing, or edema. SKIN: No gross abnormalities. PERTINENT LABORATORY DATA: Hemoglobin 9.4. Sodium 125, creatinine 1.8, GFR 37, and albumin 3.4. IMPRESSION: 1. Acute systolic heart failure. 2. [id number]-[id number] coronary artery disease. 3. Chronic kidney disease. 4. Previous liver transplant. RECOMMENDATIONS: 1. We will try and wean off Dobutrex. 2. ICD with biventricular pacing per Dr. Wiley in a.m. 3. Consider changing IV Lasix to p.o. Lasix. 4. The patient will need placement. He is fairly weak. Family is agreeable. Job ID: [id number]
--- NOTE | 2019-01-31 14:47 | PRG ---
DATE OF SERVICE: 01/31/2019 OBJECTIVE: VITAL SIGNS: Blood pressure is 103/59. I and O, he is diuresed to even down to negative 1800. Weight is 197. LUNGS: Clear. HEART: Reveals an irregularly irregular rhythm without murmurs. LABORATORY DATA: Sodium 125, potassium 4.3, chloride 86, CO2 of 28, BUN is 64, creatinine 1.81. IMPRESSION: 1. Fluid overload syndrome. 2. Cardiomyopathy. PLAN: 1. For AICD placement tomorrow. 2. in the process of discharge planning. Job ID: [id number]
--- NOTE | 2019-01-31 16:36 | PRG ---
DATE OF SERVICE: 01/31/2019 SUBJECTIVE: Sharif Gant remains stable. His is concerned because he is not very motivated to move around or help with his physical therapy. OBJECTIVE: VITAL SIGNS: Heart rate 68, blood pressure 106/68, respiratory rate is in the teens. LUNGS: Remarkable for decreased breath sounds. HEART: Regular rhythm. ABDOMEN: Soft. LABORATORY DATA: White count was normal yesterday. Sodium 125, potassium 4.3, chloride 86, bicarb 28, BUN 64, and creatinine 1.81. Liver enzymes are essentially unchanged. Intake and outputs -1833. His weight is 197 pounds. Admission weight was reported at 216, but I am not sure this is accurate. It fluctuated between 216 and 218 for 7 days in spite of negative fluid balance and then all of a sudden was 204 pounds. PLAN: We will continue with current critical care management. He is to have a biventricular defibrillator placed tomorrow. No ablation procedures on the schedule as I understand it. Job ID: [id number]
[2019-01-31] MEDS: DOBUTamine 500 mg/250 ml 500 MG in Premix Bag 1 BAG IVPB SCH (19:30)
[2019-01-31] MEDS ORDERED: Enoxaparin Sodium 40 MG/0.4 ML SYRINGE SC SCH (21:00)
[2019-01-31] MEDS: Insulin Glargine 12 UNITS in Pre-Filled Syringe 1 EACH SC SCH (21:06)
[2019-01-31] MEDS: Rosuvastatin 10 MG TAB PO SCH (21:07)
[2019-01-31] MEDS: Multivit, Therapeutic 1 TAB PO SCH (21:07)
[2019-02-01] MEDS: Furosemide 40 MG/4 ML VIAL SLOW IVP SCH ×3 (06:32→20:53)
[2019-02-01] MEDS: cefTRIAXone\\ROCEPHIN 1 GM in Sodium Chloride 0.9% 100 ML IVPB SCH (07:45)
[2019-02-01] MEDS ORDERED: Vancomycin HCl 1 GM in Premix Bag 1 BAG IVPB SCH (08:00)
[2019-02-01] MEDS: Tacrolimus 1 MG CAP PO SCH ×2 (08:00→20:53)
[2019-02-01 09:27] LABS: #Basophils 0.1 thou/uL (0.0-0.2); #Eosinphils 0.8 thou/uL (0.0-0.7); #Lymphocytes 0.5 thou/uL (1.20-3.40); #Monocytes 0.6 thou/uL (0.11-0.59); #Neutrophils 5.4 thou/uL (1.40-6.50); %Basophils 0.9 % (0.0-1.0); %Eosinophils 10.8 % (0.0-10.0); %Lymphocytes 6.7 % (21.0-51.0); %Neutrophils 73.6 % (42.0-75.0); Hemoglobin 9.5 g/dL (14.0-18.0); Mean Corpuscular HGB CONC 32.4 g/dL (32.0-36.0); Mean Corpuscular Hemoglobin 27.7 pg (27.0-31.0); Mean Corpuscular Volume 85.4 fL (78.0-98.0); Mean Platelet Volume 6.6 fL (7.4-10.4); Platelet Count 360 thou/uL (130-400); RBC Distribution Width 16.8 % (11.5-14.5); Red Blood Cell (RBC) Count 3.43 mill/uL (4.70-6.10); White Blood Cell (WBC) Count 7.4 thou/uL (4.8-10.8)
[2019-02-01 09:49] LABS: Anion Gap 16 mmol/L (10-20); BUN (Urea Nitrogen) 63 mg/dL (8.4-25.7); Calc. Creatinine Clearance 51 mL/min (70-130); Calcium 9.3 mg/dL (7.8-10.44); Carbon Dioxide 26 mmol/L (23-31); Chloride 87 mmol/L (98-107); Estimated GFR-MDRD 40; Glucose 124 mg/dL (80-115); Potassium 4.1 mmol/L (3.5-5.1); Sodium 125 mmol/L (136-145)
--- NOTE | 2019-02-01 10:22 | PRG ---
DATE OF SERVICE: 02/01/2019 SUBJECTIVE: Mr. Gant is a 68-year-old male, status post liver renal transplant, admitted for CHF. We are following this patient for his acute kidney injury on top of his chronic renal failure. He has been receiving IV Lasix for the last one week. He was also noted to have a worsening ejection fraction. For that reason, planned AICD placement will be done today. Creatinine yesterday was noted at 1.81. At that time, I simply attributed this from his current diuretic regimen. This morning, he voices no new complaints. OBJECTIVE: VITAL SIGNS: Blood pressure is 110/67, heart rate 70, respiratory rate 22, pulse ox 100%. GENERAL: The patient is awake, sitting comfortable, on BiPAP, not in distress. SKIN: Adequate turgor. HEENT: Pinkish conjunctivae. Anicteric sclerae. No neck mass. No carotid bruits. No JVD. CHEST: No deformities. LUNGS: Decreased breath sounds. HEART: Normal sinus rhythm. No murmur. No gallops. No rubs. ABDOMEN: Globular, soft, nontender. No masses. EXTREMITIES: Positive for edema. MEDICATIONS: Medications of February 01, 2019, were reviewed. LABORATORY DATA: Laboratories of February 01, 2019, hemoglobin 9.5. Chem-7 pending. On January 31, 2019, BUN 64, creatinine 1.81. ASSESSMENT AND PLAN: 1. Acute kidney injury/chronic renal failure. Stable renal function, slightly higher creatinine yesterday. Continue current diuretic regimen in anticipation of an automatic implantable cardioverter-defibrillator placement. We are attempting to make the patient as euvolemic as possible prior to the said procedure. 2. Anemia. Continue to observe. 3. Left upper arm cellulitis, status post vancomycin, and the patient to be converted to Zyvox. 4. Overall agree with current management. 5. Recheck basic metabolic panel and CBC in a.m. Job ID: [id number]
[2019-02-01] MEDS: Insulin Glargine 14 UNITS in Pre-Filled Syringe 1 EACH SC SCH (10:31)
[2019-02-01] MEDS: hydrALAZINE 25 MG TAB PO SCH ×3 (10:31→20:53)
[2019-02-01] MEDS: Spironolactone 25 MG TAB PO SCH (10:31)
[2019-02-01] MEDS: Calcitriol 0.25 MCG CAP PO SCH (10:31)
[2019-02-01] MEDS: Isosorbide Dinitrate 5 MG TAB PO SCH ×3 (10:32→20:53)
[2019-02-01] MEDS: Potassium Chloride 20 MEQ TAB PO SCH ×2 (10:32→20:55)
[2019-02-01] MEDS ORDERED: PROPOFOL 200 MG/20 ML VIAL ONE (10:54)
[2019-02-01] MEDS ORDERED: Lidocaine 1% PF 5 ML VIAL ONE (10:54)
--- NOTE | 2019-02-01 12:25 | PRG ---
DATE OF SERVICE: 02/01/2019 SUBJECTIVE: Mr. Gant is fairly comfortable. He has complained of some right arm pain. I's and O's, he is down to 196 today. He is still in negative fluid balance. OBJECTIVE: VITAL SIGNS: BP 110/67. LUNGS: Clear. HEART: Regular rhythm without murmurs. EXTREMITIES: Right arm, there appears to be some redness over the inner aspect of the right arm. This appears to be an old infiltration IV site. There appears to be a purulent at this area, surrounded by some erythema. IMPRESSION: 1. Pulmonary edema and volume overload. 2. Cardiomyopathy. 3. Infiltration site possible cellulitis of right arm. PLAN: The patient is scheduled for procedure today. We will give him a one dose of vancomycin and Rocephin now prior to procedure. Job ID: [id number]
[2019-02-01] MEDS: Magnesium Oxide 400 MG TAB PO SCH ×2 (13:32→16:34)
[2019-02-01] MEDS ORDERED: Propofol 500 MG/50 ML VIAL ONE (15:19)
[2019-02-01] MEDS ORDERED: Iopamidol 370 76% 50 ML VIAL FS ONE (16:36)
[2019-02-01] MEDS ORDERED: Morphine 2 MG/ML SYRINGE SLOW IVP PRN (17:26)
[2019-02-01] MEDS ORDERED: Acetaminophen/Codeine 30-300mg Tablet PO PRN (17:27)
--- NOTE | 2019-02-01 17:34 | PRG ---
DATE OF SERVICE: 02/01/2019 SUBJECTIVE: Shraif Gant has an erythematous warm area on the medial aspect of his right upper extremity below the elbow where an IV was. He probably has a venous thrombus in this area as well. He was given vancomycin this morning. I have switched him to Zyvox. He is also started on Rocephin. OBJECTIVE: LUNGS: Clear. HEART: Regular rhythm. ABDOMEN: Soft. VITAL SIGNS: Intake and output are negative 1454. Weight is 196. LABORATORY DATA: Creatinine today is 1.7, hemoglobin is 9.5. Both these numbers are stable. IMPRESSION AND PLAN: 1. Congestive heart failure. 2. Pulmonary hypertension. PLAN: Talked with Dr. Rios yesterday. Informed me there has been a dramatic improvement in his pulmonary artery pressures. Tentatively, on the schedule for defibrillator today. Job ID: [id number]
--- NOTE | 2019-02-01 18:40 | RAD ---
CHEST ONE VIEW: 02/01/19 INDICATION: History of AICD placement. COMPARISON: Prior exam dated 01/29/19. FINDINGS: There is a new AICD overlying the left chest wall. No pneumothorax is evident. There is persistent el evation of the right hemidiaphragm. There is worsening right basilar atelectasis. Cardiomegaly and pu lmonary vascular congestion persists. IMPRESSION: 1. New AICD without evidence of pneumothorax. 2. Worsening right basilar atelectasis. 3. Persistent cardiomegaly with pulmonary vascular congestion. POS: BH
[2019-02-01] MEDS: Linezolid 600 MG in Premix Bag 1 BAG IVPB SCH (20:51)
[2019-02-01] MEDS: Insulin Glargine 12 UNITS in Pre-Filled Syringe 1 EACH SC SCH (20:52)
[2019-02-01] MEDS: Insulin Regular 300 UNITS/3 ML VIAL SC PRN (20:53)
[2019-02-01] MEDS: Rosuvastatin 10 MG TAB PO SCH (20:55)
[2019-02-01] MEDS: Multivit, Therapeutic 1 TAB PO SCH (20:55)
[2019-02-02 06:34] LABS: Anion Gap 17 mmol/L (10-20); BUN (Urea Nitrogen) 61 mg/dL (8.4-25.7); Calc. Creatinine Clearance 50 mL/min (70-130); Carbon Dioxide 25 mmol/L (23-31); Chloride 88 mmol/L (98-107); Estimated GFR-MDRD 39; Glucose 95 mg/dL (80-115); Magnesium 2.2 mg/dL (1.6-2.6); Potassium 4.2 mmol/L (3.5-5.1); Sodium 126 mmol/L (136-145)
--- NOTE | 2019-02-02 07:21 | CON ---
DATE OF CONSULTATION: HISTORY OF PRESENT ILLNESS: Mr. Gant is doing well. He continues to diurese. He has also continued to lose weight. He did develop an infiltration to the right arm. This likely occurred Wednesday. OBJECTIVE: VITAL SIGNS: Blood pressure 123/72, pulse 70, respirations 20, Is and Os -1454. LUNGS: Continued crackles noted on left versus right. HEART: Irregularly irregular. ABDOMEN: Soft, nontender, nondistended. EXTREMITIES: 1+ pitting edema. PERTINENT LABORATORY DATA: Creatinine 1.7, GFR 40. IMPRESSION: 1. Acute on chronic systolic heart failure. 2. Atrial fibrillation. 3. Liver transplant. 4. Pulmonary hypertension. 5. Obstructive sleep apnea. 6. Chronic kidney disease. RECOMMENDATIONS: 1. I would continue with IV Lasix. 2. Plan his ICD today. 3. Continue to monitor hemoglobin and creatinine closely. 4. Add antibiotic therapy for recent IV infiltration. Job ID: [id number]
[2019-02-02] MEDS: Furosemide 40 MG/4 ML VIAL SLOW IVP SCH ×2 (07:23→13:26)
[2019-02-02 07:25] LABS: Hemoglobin 9.4 g/dL (14.0-18.0); Mean Corpuscular HGB CONC 32.2 g/dL (32.0-36.0); Mean Corpuscular Hemoglobin 27.7 pg (27.0-31.0); Mean Corpuscular Volume 86.3 fL (78.0-98.0); Mean Platelet Volume 6.8 fL (7.4-10.4); Platelet Count 375 thou/uL (130-400); RBC Distribution Width 16.9 % (11.5-14.5); Red Blood Cell (RBC) Count 3.37 mill/uL (4.70-6.10); White Blood Cell (WBC) Count 8.5 thou/uL (4.8-10.8)
[2019-02-02] MEDS ORDERED: cefTRIAXone\\ROCEPHIN 1 GM VIAL ONE (07:35)
[2019-02-02] MEDS: cefTRIAXone\\ROCEPHIN 1 GM in Sodium Chloride 0.9% 100 ML IVPB SCH (07:39)
[2019-02-02] MEDS: DOBUTamine 500 mg/250 ml 500 MG in Premix Bag 1 BAG IVPB SCH (07:40)
[2019-02-02] MEDS: Spironolactone 25 MG TAB PO SCH (07:42)
[2019-02-02] MEDS: Apixaban 5 MG TAB PO SCH ×2 (07:49→21:06)
[2019-02-02 08:00] LABS: Band 6 % (5-11); Eosinophils 7 % (0-10); Lymphocytes 12 % (21-51); MDiff Complete? YES; Monocytes 11 % (0-10); Neutrophil 64 % (42-75); Platelet Morphology Comment Appears Adequate; Polychromasia SLIGHT = 2-3 cells (100X) (0-2/hpf)
[2019-02-02] MEDS: Potassium Chloride 20 MEQ TAB PO SCH ×2 (08:54→21:05)
[2019-02-02] MEDS: Isosorbide Dinitrate 5 MG TAB PO SCH ×3 (08:54→21:06)
[2019-02-02] MEDS: Calcitriol 0.25 MCG CAP PO SCH (08:54)
[2019-02-02] MEDS: hydrALAZINE 25 MG TAB PO SCH ×3 (08:54→20:59)
[2019-02-02] MEDS: Tacrolimus 1 MG CAP PO SCH ×2 (08:54→21:06)
[2019-02-02] MEDS: Insulin Glargine 14 UNITS in Pre-Filled Syringe 1 EACH SC SCH (08:55)
[2019-02-02] MEDS: Linezolid 600 MG in Premix Bag 1 BAG IVPB SCH ×2 (08:57→21:06)
--- NOTE | 2019-02-02 10:27 | PRG ---
DATE OF SERVICE: 02/02/2019 SUBJECTIVE: Mr. Gant is a 68-year-old male, being followed up for his acute kidney injury on top of his chronic renal failure. He was initially admitted for CHF. In the interim, he had an AICD placed yesterday. He tolerated said treatment. He voices no new complaints. He denies any chest pain or any worsening shortness of breath. OBJECTIVE: VITAL SIGNS: Blood pressure is noted at 116/72, heart rate 86, respiratory rate 25, pulse ox 95%. GENERAL: Awake, alert, comfortable, not in distress. SKIN: Adequate turgor. HEENT: Pinkish conjunctivae. Anicteric sclerae. NECK: No neck mass. No carotid bruits. No JVD. CHEST: No deformities. LUNGS: Clear breath sounds. No wheezing. No crackles. HEART: Normal sinus rhythm. No murmurs. No gallops. No rubs. ABDOMEN: Globular. Soft. Nontender. No masses. EXTREMITIES: Positive for edema. MEDICATIONS: Medications of February 02, 2019, reviewed. LABORATORY DATA: Laboratories of February 02, 2019, white count 8.5, hemoglobin 9.4, sodium 126, potassium 4.2, chloride 88, carbon dioxide 25, BUN 61, creatinine 1.74, calcium 9, magnesium 2.2. ASSESSMENT AND PLAN: 1. Acute kidney injury/chronic renal failure, stable renal function. Creatinine 1.74 is acceptable. GFR is currently 39 mL/minute. Continue current diuretic regimen. No indication for any dialysis. 2. Congestive heart failure/decreased EF, status post AICD. Cardiology is following. 3. Borderline anemia. We will continue to observe. Overall, prognosis remains guarded. Job ID: [id number]
--- NOTE | 2019-02-02 11:12 | PRG ---
DATE OF SERVICE: SUBJECTIVE: Mr. Gant seems to be doing well one day after His bundle/Bi-V ICD implant. He is more alert than usual. His ICD insertion site is without reaction. OBJECTIVE DATA: VITAL SIGNS: Blood pressure is 109/67, heart rate is 81, respirations 19, temperature 99.1 degrees Fahrenheit. This is off dobutamine. GENERAL: Reveals alert and oriented man with elevated BMI. NECK: Supple. Jugular veins not distended. CHEST: Coarse without crackles. HEART: Sounds are regular to rate and rhythm. No murmur or gallop. ABDOMEN: Benign. Bowel sounds positive. EXTREMITIES: Lower extremity without edema, clubbing, or cyanosis. DATABASE: White cell count is 8.5, hemoglobin 9.4, platelet count is 375. Sodium 126, BUN 61, creatinine 1.74. EKG/telemetry reveals continued atrial fibrillation with intermittent ventricular pacing with narrow QRS complexes. Interrogation of the device reveals he had functioning biventricular [employer]onic ICD, atrially not implanted, RV impedance 437, LV 456 ohms. The thresholds are 0.5 at 0.4 and 0.5 at 1 milliseconds respectively. Sensing at 8.6 mV in the RV. The LV/His bundle lead is capturing adequately. Ventricular paced response was turned off. A short nonsustained 19-beat ventricular tachycardia appears to be noted and detected. The chest x-ray shows no pneumothorax. Bibasilar atelectasis is noted. ASSESSMENT AND PLAN: 1. Mr. Gant is a pleasant 68-year-old male with a history of nonischemic cardiomyopathy, history of atrial fibrillation, slow ventricular response, who underwent a Bi-V ICD implantation yesterday with LV lead position and His bundle. He got perfect His pacing with narrow QRS at set rate of 70 beats per minute with rate response on. Currently, the ICD is functioning adequately. No complications noted. He is already feeling better. We will continue current management including IV antibiotics as per Dr. Beyer for small indurated phlebitis in the right arm, which is improving as well. So far, no systemic signs of infection is present. Once that is complete, p.o. antibiotics requested for Keflex for a week duration, prescriptions in the chart. 2. Congestive heart failure, requiring IV dobutamine, now is off and blood pressure maintaining well. Heart rates are adequate. Standard heart failure management as per Dr. Rios. 3. Chronic atrial fibrillation, slow ventricular response, now improved with ventricular pacing. Resume anticoagulation tonight. Monitor for hematoma. 4. Two week wound check in our office. Likely rehab will be required. Job ID: [id number]
[2019-02-02] MEDS: Magnesium Oxide 400 MG TAB PO SCH ×2 (11:31→16:19)
[2019-02-02] MEDS: Insulin Regular 300 UNITS/3 ML VIAL SC PRN ×2 (11:31→16:19)
--- NOTE | 2019-02-02 14:12 | PRG ---
DATE OF SERVICE: 02/02/2019 SUBJECTIVE: The patient is resting comfortably in bed. He had a defibrillator placed yesterday. He does arouse and awaken and verbalizes no complaints. OBJECTIVE: VITAL SIGNS: Blood pressure 125/76, O2 sats 96%. LUNGS: Reveal bilateral breath sounds. HEART: Reveals irregular rate and rhythm without murmurs. LABORATORY DATA: Sodium 126, potassium 4.2, chloride 88, CO2 of 25, BUN 61, and creatinine 1.74. IMAGING DATA: Chest x-ray shows cardiomegaly without pulmonary vascular congestion. IMPRESSION: Pulmonary edema, volume overload, and cardiomyopathy, all have improved with diuresis. He has now lost around 22 pounds. PLAN: The patient is stabilizing. At some point, I believe, we can remove him to rehab in the near future. He does have cellulitis in right arm, for which he is on Zyvox that should not be a big impediment to movement. Job ID: [id number]
[2019-02-02 14:28] VITALS: BMI 31.3
[2019-02-02] MEDS: Rosuvastatin 10 MG TAB PO SCH (20:59)
--- NOTE | 2019-02-02 21:00 | PRG ---
DATE OF SERVICE: 02/02/2019 SUBJECTIVE: Sharif Gant underwent pacemaker defibrillator placement today and did extremely well. He actually already looks better after his procedure. OBJECTIVE: VITAL SIGNS: Heart rate 75, blood pressure 117/80, respiratory rate is 20, oximetry is 98%. LUNGS: Unchanged. HEART: Unchanged. ABDOMEN: Unchanged. LABORATORY DATA: White count 8.5, hemoglobin 9.4, platelets 375, creatinine 1.74. Continues to diurese without a change in his renal function. His intake and output today were negative 1900, coming in through the day. IMPRESSION: 1. Congestive heart failure. 2. Pulmonary hypertension. 3. Sleep apnea. 4. Anasarca. 5. Status post pacemaker defibrillator, clinically stable. We might consider transferring out of Critical Care Unit tomorrow in my opinion. Job ID: [id number]
[2019-02-02] MEDS: Insulin Glargine 12 UNITS in Pre-Filled Syringe 1 EACH SC SCH (21:06)
[2019-02-02] MEDS: Multivit, Therapeutic 1 TAB PO SCH (21:06)
[2019-02-03] MEDS: Furosemide 40 MG/4 ML VIAL SLOW IVP SCH ×2 (00:55→07:49)
--- NOTE | 2019-02-03 07:45 | PRG ---
DATE OF SERVICE: 02/03/2019 SUBJECTIVE: The patient is resting comfortably in his room, still complains of right arm pain. His dobutamine has been stopped. OBJECTIVE: VITAL SIGNS: Blood pressure 121/79, temperature 97.9. LUNGS: Clear. HEART: Reveals an irregular rhythm without murmurs. LABORATORY DATA: Hemoglobin 9.4, hematocrit 29.1. I and O; he was negative fluid balance for 02/02. He is in mild positive fluid balance for 02/03 he has gained 7 pounds since yesterday. IMPRESSION: 1. Pulmonary edema. 2. Congestive heart failure. PLAN: At this point in time, the patient can be discharged to rehab or even taken upstairs and awaits discharge to rehab. I believe he has reached the maximum medical improvement that we can offer him here. If this can occur, would be glad to sign discharge papers to facilitate discharge to rehab. I do not think he should be transferred home. Job ID: [id number]
[2019-02-03] MEDS: cefTRIAXone\\ROCEPHIN 1 GM in Sodium Chloride 0.9% 100 ML IVPB SCH (08:07)
[2019-02-03] MEDS: Apixaban 5 MG TAB PO SCH ×2 (08:11→20:43)
[2019-02-03] MEDS: Potassium Chloride 20 MEQ TAB PO SCH (08:11)
[2019-02-03] MEDS: hydrALAZINE 25 MG TAB PO SCH ×3 (08:11→20:46)
[2019-02-03] MEDS: Spironolactone 25 MG TAB PO SCH (08:12)
[2019-02-03] MEDS: Insulin Glargine 14 UNITS in Pre-Filled Syringe 1 EACH SC SCH (08:12)
[2019-02-03] MEDS: Calcitriol 0.25 MCG CAP PO SCH (08:12)
[2019-02-03] MEDS: Tacrolimus 1 MG CAP PO SCH ×2 (08:41→20:43)
[2019-02-03] MEDS: Isosorbide Dinitrate 5 MG TAB PO SCH ×3 (08:41→20:46)
[2019-02-03] MEDS: Linezolid 600 MG in Premix Bag 1 BAG IVPB SCH ×2 (08:41→20:43)
--- NOTE | 2019-02-03 09:10 | PRG ---
DATE OF SERVICE: 02/02/2019 SUBJECTIVE: Mr. Gant is currently doing well, no current complaints. He continues to diurese. He is currently on low-dose dobutamine. OBJECTIVE: VITAL SIGNS: Blood pressure 110/67, pulse 69, temperature afebrile. LUNGS: Clear to auscultation bilaterally. HEART: Irregularly irregular. ABDOMEN: Soft, nontender, nondistended. EXTREMITIES: No edema. PERTINENT LABORATORY DATA: Hemoglobin 9.4. Creatinine 1.74, which is stable. IMPRESSION: 1. Acute on chronic systolic heart failure. 2. Atrial fibrillation. 3. Liver transplant. 4. Acute on chronic renal insufficiency. RECOMMENDATIONS: 1. Mr. Gant is currently doing well. We will change Lasix IV to p.o. 2. Discontinue dobutamine. 3. Will need rehab placement. Job ID: [id number]
[2019-02-03 09:41] LABS: Anion Gap 15 mmol/L (10-20); BUN (Urea Nitrogen) 64 mg/dL (8.4-25.7); Calc. Creatinine Clearance 50 mL/min (70-130); Carbon Dioxide 26 mmol/L (23-31); Chloride 87 mmol/L (98-107); Estimated GFR-MDRD 38; Glucose 125 mg/dL (80-115); Potassium 4.8 mmol/L (3.5-5.1); Sodium 123 mmol/L (136-145)
[2019-02-03] MEDS ORDERED: Potassium Chloride 10 MEQ TAB PO SCH (10:00)
[2019-02-03] MEDS ORDERED: Furosemide 40 MG TAB PO SCH (10:00)
[2019-02-03] MEDS: Insulin Regular 300 UNITS/3 ML VIAL SC PRN ×3 (11:06→20:42)
--- NOTE | 2019-02-03 11:29 | PRG ---
DATE OF SERVICE: 02/03/2019 SUBJECTIVE: Mr. Gant is a 68-year-old male, who is status post liver transplant, admitted for CHF, and being followed up by the renal service for his chronic renal failure. He underwent an AICD 2 days ago. IV diuretics have been changed now to p.o. diuretics. He also developed a cellulitis secondary to the IV site. Currently on antibiotics. No new complaints today. He denies any chest pain or shortness of breath. OBJECTIVE: VITAL SIGNS: Blood pressure is 94/61, heart rate 74, respiratory rate 25, and pulse ox 93%. GENERAL: Awake, sitting comfortable, not in overt distress. SKIN: Adequate turgor. HEENT: Slightly pale conjunctivae. Anicteric sclerae. NECK: No neck mass. No carotid bruits. No JVD. CHEST: No deformities. LUNGS: Decreased breath sounds. HEART: Irregular. No murmur. No gallops. No rubs. ABDOMEN: Globular, soft, and nontender. No masses. EXTREMITIES: Positive for edema. MEDICATIONS: Medications of 02/03/2019 were reviewed. LABORATORY DATA: On 02/02/2019: Sodium 126, potassium 4.2, chloride 88, carbon dioxide 25, BUN 61, creatinine 1.74. Magnesium 2.2. Basic metabolic panel of 02/03, pending. On 02/02/2019: White count 8.5 and hemoglobin 9.4. ASSESSMENT AND PLAN: 1. Chronic renal failure. Continue supportive care. No indication for any dialysis. Agree to change IV Lasix to p.o. Lasix. Case discussed with Cardiology. We will start him on Lasix at 40 mg tablet daily. If no improvement with his volume status, we can always increase the Lasix. 2. Borderline anemia. Continue to observe. 3. Congestive heart failure, stable. Cardiology is following. The patient is status post automatic implantable cardioverter-defibrillator placement. 4. Agree with current management. Job ID: [id number]
[2019-02-03] MEDS: Magnesium Oxide 400 MG TAB PO SCH ×2 (12:06→16:11)
--- NOTE | 2019-02-03 12:50 | PRG ---
DATE OF SERVICE: 02/03/2019 SUBJECTIVE: Mr. Gant is doing well. He has no complaints. I have a discussion with him about getting motivated for rehab. OBJECTIVE: VITAL SIGNS: Heart rate 70, blood pressure 104/61, and respiratory rate is 19. LUNGS: Clear. HEART: Regular rhythm. ABDOMEN: Soft. LABORATORY DATA: White count was not repeated today, was normal yesterday. Chem-7; sodium 123, potassium 4.8, chloride 87, bicarb 26, BUN 64, and creatinine 1.78. IMPRESSION: 1. Congestive heart failure. 2. Pulmonary hypertension. 3. Sleep apnea. 4. Hyponatremia related to his diuretics and his cardiomyopathy. 5. Chronic kidney disease. PLAN: We will continue supportive care. He is being evaluated for rehab. Job ID: [id number]
--- NOTE | 2019-02-03 13:10 | PRG ---
DATE OF SERVICE: 02/03/2019 SUBJECTIVE: Mr. Gant continues to be doing well. He is more alert. No new issues noted. OBJECTIVE: VITAL SIGNS: Blood pressure is 105/69, heart rate 69, respiratory rate 25, and temperature 98.5 degrees Fahrenheit. The in's and out's still on the positive side overnight. GENERAL: Alert and oriented man, in no apparent distress. NECK: Supple. Jugular veins not distended. CHEST: Coarse without crackles. No murmur or gallop. Mild dullness in the right base. Left precordial ICD insertion site is healing well. ABDOMEN: Benign. Bowel sounds positive. DATABASE: The telemetry strips reveal atrial fibrillation with intermittent narrow complex ventricular pacing. ASSESSMENT AND PLAN: Mr. Gant is a 68-year-old man with history of liver transplant, nonischemic cardiomyopathy, and atrial fibrillation with slow ventricular rate. Now, he underwent a Bi-V ICD implantation with LV lead attached to the His bundle with excellent pacing results. He seems to be doing better clinically. No further arrhythmia issues are noted. He continues on IV then p.o. antibiotics. Plan is for routine post pacemaker care with p.o. antibiotics for a week, 2 weeks for wound check. Heart failure management as per Dr. Rios. Resume oral anticoagulants last night. At this point, I would sign off. We will see him in the office for wound check. Job ID: [id number]
[2019-02-03 13:55] LABS: ALT (SGPT) 44 U/L (8-55); AST (SGOT) 58 U/L (5-34); Albumin 3.4 g/dL (3.4-4.8); Alkaline Phosphatase 361 U/L (40-150); Bilirubin, Direct 0.4 mg/dL (0.1-0.3); Bilirubin, Total 0.6 mg/dL (0.2-1.2)
[2019-02-03] MEDS: Acetaminophen 325 MG TAB PO PRN (15:13)
--- NOTE | 2019-02-03 16:04 | PRG ---
DATE OF SERVICE: SUBJECTIVE: The patient is sleepy but lucid. He is weak, but without any complaint. He is eating fine. Denies any nausea, vomiting, or abdominal pain. Breathing is fine. OBJECTIVE: VITAL SIGNS: Temperature is 98.5, blood pressure 105/69, pulse is 76. GENERAL: He is without distress. HEENT: Shows anicteric sclerae. NECK: Supple. CV: Shows normal S1, S2. Regular rate and rhythm. CHEST: Shows a breath sound reduced flow in right lower base. No rales or rhonchi. ABDOMEN: Mildly protuberant, but soft and nontender with active bowel sounds. EXTREMITIES: Shows 1+ edema. LABORATORY DATA: WBCs 8.5, hemoglobin 9.4, platelet count of 375. Sodium 123, potassium 4.8, chloride 87, CO2 is 26, creatinine 1.78, bilirubin is 0.6, AST 58, ALT of 44, alkaline phosphatase 361. ASSESSMENT: 1. Stable liver profile. Elevation in alkaline phosphatase is nonspecific at this point and has not changed much since admission. With normal bilirubin and ultrasound, there is no evidence of biliary obstruction or any biliary issue. He does have mild transaminitis, which I cannot exclude any small degree of liver rejection which I doubt. Overall, liver profile has not changed and clinically he is doing fairly well from GI standpoint. 2. Congestive heart failure. 3. Pulmonary hypertension. 4. Hyponatremia. 5. Chronic renal failure, stable creatinine. RECOMMENDATION: 1. Continue with tacrolimus 1 mg p.o. b.i.d., no change in dose. 2. No other GI tests at this point, we will follow periodically. Job ID: [id number]
[2019-02-03] MEDS: Insulin Glargine 12 UNITS in Pre-Filled Syringe 1 EACH SC SCH (20:41)
[2019-02-03] MEDS: Rosuvastatin 10 MG TAB PO SCH (20:43)
[2019-02-03] MEDS: Multivit, Therapeutic 1 TAB PO SCH (20:43)
[2019-02-04 05:51] LABS: #Basophils 0.1 thou/uL (0.0-0.2); #Eosinphils 0.9 thou/uL (0.0-0.7); #Lymphocytes 0.5 thou/uL (1.20-3.40); #Monocytes 0.6 thou/uL (0.11-0.59); #Neutrophils 4.7 thou/uL (1.40-6.50); %Basophils 1.3 % (0.0-1.0); %Eosinophils 12.9 % (0.0-10.0); %Lymphocytes 7.3 % (21.0-51.0); %Monocytes 8.9 % (0.0-10.0); %Neutrophils 69.6 % (42.0-75.0); Hemoglobin 9.6 g/dL (14.0-18.0); Mean Corpuscular HGB CONC 31.3 g/dL (32.0-36.0); Mean Corpuscular Hemoglobin 27.2 pg (27.0-31.0); Mean Corpuscular Volume 86.8 fL (78.0-98.0); Mean Platelet Volume 6.9 fL (7.4-10.4); Platelet Count 363 thou/uL (130-400); Red Blood Cell (RBC) Count 3.54 mill/uL (4.70-6.10); White Blood Cell (WBC) Count 6.8 thou/uL (4.8-10.8)
[2019-02-04 06:15] LABS: Anion Gap 16 mmol/L (10-20); BUN (Urea Nitrogen) 66 mg/dL (8.4-25.7); Calc. Creatinine Clearance 46 mL/min (70-130); Calcium 8.8 mg/dL (7.8-10.44); Carbon Dioxide 25 mmol/L (23-31); Chloride 89 mmol/L (98-107); Estimated GFR-MDRD 34; Glucose 132 mg/dL (80-115); Magnesium 2.9 mg/dL (1.6-2.6); Potassium 4.6 mmol/L (3.5-5.1); Sodium 125 mmol/L (136-145)
--- NOTE | 2019-02-04 08:24 | PRG ---
DATE OF SERVICE: 02/04/2019 SUBJECTIVE: Mr. Gant is doing well. He has actually been standing up, being weighed now. His weight is 201 pounds. OBJECTIVE: VITAL SIGNS: Blood pressure is 100/50, pulse is 70 at sinus. LUNGS: Clear. CARDIAC: Normal S1, normal S2. ABDOMEN: Soft, nontender. EXTREMITIES: There is no edema. PERTINENT LABORATORY DATA: Creatinine is 1.9, sodium is 125. ASSESSMENT: 1. Acute on chronic systolic heart failure, appears stable. 2. Atrial fibrillation. He is maintaining sinus rhythm. 3. Liver transplant. 4. Acute on chronic renal insufficiency. PLAN: 1. Lasix is on hold. 2. He is off dobutamine. 3. Waiting for rehab placement. Job ID: [id number]
--- NOTE | 2019-02-04 08:47 | PRG ---
DATE OF SERVICE: 02/04/2019 SUBJECTIVE: Mr. Gant is mentating somewhat better today. He is scheduled to go over rehab today or Wednesday. OBJECTIVE: VITAL SIGNS: His temperature is 97.0, pulse 71, blood pressure 100/59, O2 saturation 94%. HEENT: Unremarkable. NECK: No JVD. CHEST: Fairly clear anteriorly. CARDIAC: S1, S2. Regular. ABDOMEN: Soft. EXTREMITIES: Trace edema. LABORATORY DATA: Sodium 125, potassium 4.6, chloride 89, CO2 of 25, BUN 66, creatinine 1.9, and glucose 132. White blood cell count 6.8, hematocrit , and platelet count 363. ASSESSMENT: 1. Congestive heart failure. 2. Pulmonary hypertension. 3. Obstructive sleep apnea. 4. Hyponatremia. 5. Chronic kidney disease. PLAN: He is medically stable for rehab. Not quite clear to me why he is on all the antibiotics, but I will try to clarify. Job ID: [id number]
[2019-02-04] MEDS: cefTRIAXone\\ROCEPHIN 1 GM in Sodium Chloride 0.9% 100 ML IVPB SCH (08:52)
[2019-02-04] MEDS ORDERED: Potassium Chloride 10 MEQ TAB PO SCH (09:00)
[2019-02-04] MEDS ORDERED: Furosemide 40 MG TAB PO SCH (09:00)
[2019-02-04] MEDS: Tacrolimus 1 MG CAP PO SCH ×2 (09:32→20:22)
[2019-02-04] MEDS: Isosorbide Dinitrate 5 MG TAB PO SCH ×3 (09:32→20:22)
[2019-02-04] MEDS: Acetaminophen 325 MG TAB PO PRN (09:33)
[2019-02-04] MEDS: Calcitriol 0.25 MCG CAP PO SCH (09:34)
[2019-02-04] MEDS: Spironolactone 25 MG TAB PO SCH (09:34)
[2019-02-04] MEDS: Apixaban 5 MG TAB PO SCH ×2 (09:34→20:22)
[2019-02-04] MEDS: Cefdinir 300 MG CAP PO SCH (09:34)
[2019-02-04] MEDS: hydrALAZINE 25 MG TAB PO SCH ×3 (09:35→20:24)
[2019-02-04] MEDS: Insulin Glargine 14 UNITS in Pre-Filled Syringe 1 EACH SC SCH (09:35)
--- NOTE | 2019-02-04 10:19 | CON ---
DATE OF CONSULTATION: 02/04/2019 SUBJECTIVE: The patient is doing well this morning. His states that his mental confusion has improved. Presently, trying to titrate his diuretics. Having issues with CHF versus hyponatremia. The is very vigilant. She is an ICU nurse. OBJECTIVE: VITAL SIGNS: Temp 97.0, pulse 70, respirations 18, blood pressure 117/67. Is and Os positive 497 balance. HEART: Irregular rhythm. LUNGS: Clear. ABDOMEN: Soft. EXTREMITIES: With no edema. LABORATORY DATA: White count 6.8, H and H 9.6 and 30.7, platelets 363. Sodium from 123 to 125, potassium 4.6, creatinine 1.95, BUN 66, blood sugar 130 to 139. ASSESSMENT: 1. Acute on chronic systolic congestive heart failure. 2. Pulmonary hypertension. 3. Hyponatremia secondary to multiple diuretics. He was on Zaroxolyn 80 mg of Lasix and Aldactone. The patient now is only on Aldactone 25 mg daily. 4. Acute on chronic kidney disease. The patient has been diuresed. Creatinine is elevated. Hopefully, with minimal diuretics, kidney function should slowly improve. Presently, fluids are Hep-Lock'd. 5. Obstructive sleep apnea. 6. Paroxysmal atrial fibrillation. 7. Status post automatic implantable cardioverter-defibrillator placement. Postop. 8. Status post liver transplant. 9. Right forearm cellulitis on cefdinir p.o. Recommended that the wound site remain open and use warm compresses b.i.d. PLAN: 1. Minimize diuretics at this time. Continue to monitor kidney functions. Should slowly improve. Probably would not fully IV hydrate because the patient would probably easily accumulate pulmonary edema. 2. We will have to probably titrate the Lasix on a p.r.n. basis. Discussed with the , the best monitor would be his daily weight. 3. We will hold transfer to [facility] till Wednesday. 4. We will continue to monitor electrolytes. Job ID: [id number]
--- NOTE | 2019-02-04 10:45 | PRG ---
DATE OF SERVICE: 02/04/2019 SUBJECTIVE: Mr. Gant is a 68-year-old male with status post living-related renal transplant, CHF, and acute kidney injury on top of his chronic renal failure. Recently, Lasix has been discontinued. In addition, IV dobutamine has been placed on hold. He voices no new complaints. OBJECTIVE: VITAL SIGNS: Blood pressure 117/67, heart rate 71, respiratory rate 21, O2 stat is 98%. GENERAL: Awake, sitting comfortably, not in distress. SKIN: Adequate turgor. HEENT: He has slightly pale conjunctivae. Anicteric sclerae. No neck mass. No carotid bruits. No JVD. CHEST: No deformities. LUNGS: Clear breath sounds. HEART: Normal sinus rhythm. No murmurs, gallops, or rubs. ABDOMEN: Globular, soft, nontender. No masses. EXTREMITIES: Trace edema. No deformities. MEDICATIONS: Medications of February 04, 2019, was reviewed. LABORATORY DATA: Laboratories of February 04, 2019, sodium 125, potassium 4.6, chloride 89, carbon dioxide 25, BUN 66, creatinine 1.95, glucose 132. Magnesium 2.9, calcium 8.8. ASSESSMENT AND PLAN: 1. Acute kidney injury/chronic renal failure, slightly higher creatinine of 1.95. The plan is to hold off the diuretics; however, we will continue the current dose of spironolactone 25 mg tablet once a day. 2. Congestive heart failure, clinically much improved, status post IV dobutamine. 3. Hyponatremia. Initially, this was felt it could be dilutional; however, with a worsening serum sodium, it is possible he may be a bit volume depleted. For that reason, the diuretics will be placed on hold. 4. Currently, we are awaiting rehab placement. Job ID: [id number]
[2019-02-04] MEDS: Magnesium Oxide 400 MG TAB PO SCH ×2 (11:54→17:24)
[2019-02-04] MEDS: Insulin Regular 300 UNITS/3 ML VIAL SC PRN ×3 (11:56→20:23)
[2019-02-04] MEDS: Multivit, Therapeutic 1 TAB PO SCH (20:22)
[2019-02-04] MEDS: Rosuvastatin 10 MG TAB PO SCH (20:22)
[2019-02-04] MEDS: Insulin Glargine 12 UNITS in Pre-Filled Syringe 1 EACH SC SCH (20:23)
[2019-02-05 05:36] LABS: ALT (SGPT) 56 U/L (8-55); AST (SGOT) 69 U/L (5-34); Albumin 3.3 g/dL (3.4-4.8); Alkaline Phosphatase 348 U/L (40-150); Anion Gap 14 mmol/L (10-20); BUN (Urea Nitrogen) 64 mg/dL (8.4-25.7); Bilirubin, Total 0.6 mg/dL (0.2-1.2); Calc. Creatinine Clearance 50 mL/min (70-130); Calcium 8.7 mg/dL (7.8-10.44); Carbon Dioxide 25 mmol/L (23-31); Chloride 91 mmol/L (98-107); Estimated GFR-MDRD 38; Globulin 3.8 g/dL (2.4-3.5); Glucose 77 mg/dL (80-115); Magnesium 2.9 mg/dL (1.6-2.6); Potassium 4.1 mmol/L (3.5-5.1); Protein, Total 7.1 g/dL (5.8-8.1); Sodium 126 mmol/L (136-145)
[2019-02-05] MEDS: Apixaban 5 MG TAB PO SCH ×2 (08:44→20:22)
[2019-02-05] MEDS: Tacrolimus 1 MG CAP PO SCH ×2 (08:45→20:22)
[2019-02-05] MEDS: Calcitriol 0.25 MCG CAP PO SCH (08:45)
[2019-02-05] MEDS: Acetaminophen 325 MG TAB PO PRN (08:45)
[2019-02-05] MEDS: hydrALAZINE 25 MG TAB PO SCH ×3 (08:45→21:41)
[2019-02-05] MEDS: Spironolactone 25 MG TAB PO SCH (08:45)
[2019-02-05] MEDS: Isosorbide Dinitrate 5 MG TAB PO SCH ×3 (08:45→20:21)
[2019-02-05] MEDS: Cefdinir 300 MG CAP PO SCH (08:45)
[2019-02-05] MEDS: Insulin Glargine 14 UNITS in Pre-Filled Syringe 1 EACH SC SCH ×2 (08:48→11:55)
--- NOTE | 2019-02-05 09:12 | PRG ---
DATE OF SERVICE: 02/05/2019 SUBJECTIVE: Mr. Gant is awake and alert. No complaints. He is not having trouble breathing. OBJECTIVE: VITAL SIGNS: Blood pressure is 95/58, pulse is in the 70s. LUNGS: Clear. CARDIAC: Normal S1. Normal S2. ABDOMEN: Soft and nontender. EXTREMITIES: Only mild edema. LABORATORY DATA: Sodium is 126, the creatinine is 1.79. ASSESSMENT: 1. Congestive heart failure, systolic, chronic, improved. 2. Hyponatremia, improving. 3. Renal failure, stage 3, but improving. PLAN: The patient is awaiting for rehab. He is currently off the furosemide. May need to be resumed soon. The patient is scheduled for rehab transfer. Job ID: [id number]
--- NOTE | 2019-02-05 10:18 | PRG ---
DATE OF SERVICE: 02/05/2019 SUBJECTIVE: He is sleeping this morning on BiPAP. His is at the bedside. There have been no acute changes. OBJECTIVE: VITAL SIGNS: Temperature 97.5, pulse 69, blood pressure 100/56. HEENT: Unremarkable. NECK: No JVD. CHEST: Fairly clear. CARDIAC: S1, S2. Regular. ABDOMEN: Soft. LABORATORY DATA: Sodium 126, BUN 64, creatinine 1.7, total bilirubin 0.6, alkaline phosphatase 348. ASSESSMENT: 1. Chronic systolic heart failure. 2. Obstructive sleep apnea. 3. Hyponatremia. 4. Chronic kidney disease. PLAN: He continues on antibiotics for the cellulitis associated with his IV. Otherwise, he is stable and ready to go to rehab. Job ID: [id number]
--- NOTE | 2019-02-05 11:03 | PRG ---
DATE OF SERVICE: 02/05/2019 SUBJECTIVE: Mr. Gant is a 68-year-old white male, who is status post liver renal transplant, admitted for CHF, recently status post AICD placement, and we are following him up for his chronic renal failure. He has been doing stable. Of note, his Lasix has been discontinued. He voices no new complaints. OBJECTIVE: VITAL SIGNS: Blood pressure is 92/48, heart rate 69, respiratory rate 29, and pulse ox 97%. GENERAL: Noted to be awake, sitting comfortable, on BiPAP. HEENT: Slightly pale conjunctivae. Anicteric sclerae. No neck mass. No carotid bruits. No JVD. CHEST: No deformities. LUNGS: Decreased breath sounds. HEART: Normal sinus rhythm. No murmur. No gallops. No rubs. ABDOMEN: Globular, soft, nontender. No masses. EXTREMITIES: Positive for edema. No deformities. MEDICATIONS: Rather medications of February 05, 2019, were reviewed. LABORATORY DATA: Laboratories of February 04, 2019, white count 6.8, hemoglobin 9.6. Sodium 126, potassium 4.1, chloride 91, carbon dioxide 25, BUN 64, creatinine 1.79. Magnesium 2.9. AST 69, ALT 56, albumin 3.3. ASSESSMENT AND PLAN: 1. Chronic renal failure. Continue supportive care. Stable renal function. Off diuretics. If needed, we can resume diuretics any time. 2. Congestive heart failure, clinically stable. Off current diuretic regimen of IV dobutamine. 3. Awaiting rehab transfer. Job ID: [id number]
[2019-02-05] MEDS ORDERED: Labetalol HCl 100 MG/20 ML VIAL ONE (11:53)
[2019-02-05] MEDS: Magnesium Oxide 400 MG TAB PO SCH ×2 (11:54→17:32)
--- NOTE | 2019-02-05 15:58 | CON ---
DATE OF CONSULTATION: 02/05/2019 SUBJECTIVE: The patient is awake and alert this morning. Doing well. He did have loose stools this morning. OBJECTIVE: VITAL SIGNS: Temperature 97.5, pulse 69, blood pressure 92/48, respirations 20. HEART: Regular rate and rhythm. LUNGS: Clear. ABDOMEN: Soft. EXTREMITIES: With no edema. LABORATORY DATA: White count 6.8, H and H 9.6 and 30.7. Sodium 125 to 126, potassium 4.1, creatinine 1.79, down from 1.95, BUN 64, and glucose 261, 77, 82. ASSESSMENT: 1. Acute on chronic systolic congestive heart failure. 2. Pulmonary hypertension. 3. Hyponatremia secondary to diuretics. 4. Acute on chronic kidney disease, improving. 5. Obstructive sleep apnea. 6. Paroxysmal atrial fibrillation. 7. Status post automatic implantable cardioverter-defibrillator. 8. Status post liver transplant. 9. Right forearm cellulitis, improved. PLAN: 1. Hold diuretics for another day. The patient will have to resume eventually. His kidney functions are improving. 2. remains at the bedside and is very supportive. [facility]. [facility] Job ID: [id number]
[2019-02-05] MEDS: Loperamide HCl 2 MG CAP PO PRN (17:32)
[2019-02-05] MEDS: Insulin Regular 300 UNITS/3 ML VIAL SC PRN ×2 (17:53→20:23)
[2019-02-05] MEDS: Insulin Glargine 12 UNITS in Pre-Filled Syringe 1 EACH SC SCH (20:21)
[2019-02-05] MEDS: Rosuvastatin 10 MG TAB PO SCH (20:22)
[2019-02-05] MEDS: Multivit, Therapeutic 1 TAB PO SCH (20:22)
[2019-02-06 06:57] LABS: Anion Gap 17 mmol/L (10-20); BUN (Urea Nitrogen) 60 mg/dL (8.4-25.7); Calc. Creatinine Clearance 53 mL/min (70-130); Carbon Dioxide 22 mmol/L (23-31); Chloride 94 mmol/L (98-107); Estimated GFR-MDRD 41; Glucose 66 mg/dL (80-115); Sodium 129 mmol/L (136-145)
--- NOTE | 2019-02-06 07:58 | PRG ---
DATE OF SERVICE: 02/06/2019 SUBJECTIVE: Mr. Gant will be transferring to [facility] today. He seems to be doing well. No major medical complaints. OBJECTIVE: LUNGS: His lungs are clear. HEART: Reveals an irregularly irregular rhythm. ABDOMEN: Soft and nontender. EXTREMITIES: Show no edema. PLAN: He does have some cellulitis of the right upper extremity. He is currently on antibiotics for seven more days. He will be transferred to [facility] today. His medicines have been reconciled. Job ID: [id number]
[2019-02-06] MEDS: Isosorbide Dinitrate 5 MG TAB PO SCH ×3 (08:49→20:45)
[2019-02-06] MEDS: hydrALAZINE 25 MG TAB PO SCH ×3 (08:50→20:43)
[2019-02-06] MEDS: Apixaban 5 MG TAB PO SCH ×2 (08:51→20:44)
[2019-02-06] MEDS: Calcitriol 0.25 MCG CAP PO SCH (08:51)
[2019-02-06] MEDS: Tacrolimus 1 MG CAP PO SCH ×2 (08:51→20:45)
[2019-02-06] MEDS: Spironolactone 25 MG TAB PO SCH (08:51)
[2019-02-06] MEDS: Cefdinir 300 MG CAP PO SCH (08:54)
[2019-02-06] MEDS: Insulin Glargine 14 UNITS in Pre-Filled Syringe 1 EACH SC SCH (08:55)
--- NOTE | 2019-02-06 09:31 | PRG ---
DATE OF SERVICE: 02/06/2019 SUBJECTIVE: Mr. Gant is a 68-year-old male, who is status post liver transplant, CHF, and chronic renal failure. He is being followed up for his chronic renal failure. Renal function has been stable. He is currently off his diuretics. He is breathing better. He has no other complaints today. OBJECTIVE: VITAL SIGNS: Blood pressure is 106/68, heart rate 82, respiratory rate 18, pulse ox 99%. GENERAL: Noted to be awake, alert, comfortable, not in overt distress. SKIN: Adequate turgor. HEENT: Slightly pale conjunctivae. Anicteric sclerae. NECK: No neck mass. No carotid bruits. No JVD. CHEST: No deformities. LUNGS: Decreased breath sounds. HEART: Normal sinus rhythm. No murmur. No gallops. No rubs. ABDOMEN: Globular, soft, and nontender. No masses. EXTREMITIES: Trace edema. No deformities. MEDICATIONS: Medications of February 06, 2019, reviewed. LABORATORY DATA: Laboratories of February 04, 2019; white count 6.8, hemoglobin 9.6. Sodium 129, potassium 4, chloride 94, carbon dioxide 22, BUN 68, creatinine 1.66, calcium 9.0, and magnesium 3.0. ASSESSMENT AND PLAN: 1. Acute kidney injury/chronic renal failure. Stable renal function. Creatinine 1.66, is near baseline. No indication for any dialytic intervention. Please note, diuretics have been on hold. 2. Hyponatremia, much improved with discontinuation of the Lasix. There may be a component now of some degree of volume depletion with this patient. 3. Congestive heart failure - status post automatic implantable cardioverter-defibrillator placement. Cardiology is following. Overall agree with current management. Continue to optimize hemodynamics. Awaiting rehab transfer. Job ID: [id number]
[2019-02-06] MEDS ORDERED: Furosemide 40 MG TAB PO SCH (09:35)
[2019-02-06] MEDS: Magnesium Oxide 400 MG TAB PO SCH ×2 (12:49→17:27)
--- NOTE | 2019-02-06 14:08 | PRG ---
DATE OF SERVICE: 02/03/2019 SUBJECTIVE: Mr. Gant appears more lucid today. He has been off Lasix. He is also off dobutamine. His weight appears stable. OBJECTIVE: VITAL SIGNS: Blood pressure 104/61, pulse 70, temperature afebrile. LUNGS: Clear to auscultation. HEART: Irregularly irregular. ABDOMEN: Soft, nontender, nondistended. EXTREMITIES: No edema. PERTINENT LABORATORY DATA: Hemoglobin 9.4. Creatinine 1.78, which appears stable; sodium 123. IMPRESSION: 1. Acute on chronic systolic heart failure. 2. Liver transplant. 3. Atrial fibrillation. 4. Acute on chronic renal insufficiency. 5. Hyponatremia. RECOMMENDATIONS: 1. Given low sodium which was not noted this morning until blood was drawn from a magnesium level, we will hold Lasix. May need to consult with Dr. Willis on hyponatremia. 2. Hold potassium. 3. Creatinine appears stable. He also appears to be more euvolemic. 4. Once stable, the patient to be transferred to rehab. Otherwise, I have no further recommendations. Job ID: [id number]
--- NOTE | 2019-02-06 14:53 | PRG ---
DATE OF SERVICE: 02/06/2019 SUBJECTIVE: Sharif Gant continues to progress. His Lasix was held over the weekend, so he is a little head on volume. OBJECTIVE: VITAL SIGNS: He is afebrile. Blood pressure is 97/56, heart rate 72, respiratory rate in the teens. LUNGS: Unchanged. HEART: Unchanged. ABDOMEN: Unchanged. LABORATORY DATA: White counts 6.8 on the 7th. Sodium is up to 129 today, BUN 60, creatinine 1.66. IMPRESSION: 1. Congestive heart failure. 2. Status post bundle of His pacing with defibrillator placement. 3. Sleep apnea, compliant with therapy. PLAN: Continue supportive care. Restarted p.o. Lasix today. Job ID: [id number]
[2019-02-06] MEDS: Insulin Regular 300 UNITS/3 ML VIAL SC PRN (17:28)
--- NOTE | 2019-02-06 19:31 | PRG ---
DATE OF SERVICE: 02/06/2019 SUBJECTIVE: Mr. Gant is doing well. He has had significant diuresis. The Lasix was stopped due to a sodium level of 123. His sodium level has increased back up to 129. Creatinine has been stable at 1.6. OBJECTIVE: VITAL SIGNS: Blood pressure 120/100, pulse 73, respirations 20, current weight 200. LUNGS: Clear to auscultation. HEART: Irregularly irregular. ABDOMEN: Soft, nontender, and nondistended. EXTREMITIES: No edema. PERTINENT LABORATORY DATA: Hemoglobin 9.6. IMPRESSION: 1. Acute on chronic systolic heart failure. 2. Atrial fibrillation. 3. Liver transplant. 4. Acute on chronic renal insufficiency. 5. Hyponatremia. RECOMMENDATIONS: Mr. Gant is currently doing well. There has been some concern about restarting Lasix due to his sodium level. It has been restarted and we will need to monitor sodium levels closely. Otherwise, the patient is awaiting rehab. At this point, I have no further recommendations. Job ID: [id number]
[2019-02-06] MEDS: Insulin Glargine 12 UNITS in Pre-Filled Syringe 1 EACH SC SCH (20:43)
[2019-02-06] MEDS: Rosuvastatin 10 MG TAB PO SCH (20:45)
[2019-02-06] MEDS: Loperamide HCl 2 MG CAP PO PRN (20:45)
[2019-02-06] MEDS: Multivit, Therapeutic 1 TAB PO SCH (20:45)
[2019-02-07 04:59] LABS: #Eosinphils 0.6 thou/uL (0.0-0.7); #Lymphocytes 0.5 thou/uL (1.20-3.40); #Monocytes 0.5 thou/uL (0.11-0.59); #Neutrophils 3.3 thou/uL (1.40-6.50); %Basophils 0.6 % (0.0-1.0); %Eosinophils 13.2 % (0.0-10.0); %Monocytes 9.2 % (0.0-10.0); Hemoglobin 9.7 g/dL (14.0-18.0); Mean Corpuscular HGB CONC 32.3 g/dL (32.0-36.0); Mean Corpuscular Hemoglobin 27.5 pg (27.0-31.0); Mean Corpuscular Volume 85.3 fL (78.0-98.0); Mean Platelet Volume 6.7 fL (7.4-10.4); Platelet Count 338 thou/uL (130-400); RBC Distribution Width 17.3 % (11.5-14.5); Red Blood Cell (RBC) Count 3.54 mill/uL (4.70-6.10); White Blood Cell (WBC) Count 4.9 thou/uL (4.8-10.8)
[2019-02-07 05:22] LABS: Anion Gap 15 mmol/L (10-20); BUN (Urea Nitrogen) 60 mg/dL (8.4-25.7); Calc. Creatinine Clearance 53 mL/min (70-130); Calcium 9.1 mg/dL (7.8-10.44); Carbon Dioxide 23 mmol/L (23-31); Chloride 95 mmol/L (98-107); Estimated GFR-MDRD 41; Glucose 123 mg/dL (80-115); Potassium 4.2 mmol/L (3.5-5.1); Sodium 129 mmol/L (136-145)
[2019-02-07] MEDS ORDERED: Furosemide 40 MG TAB PO SCH (07:30)
[2019-02-07] MEDS: Spironolactone 25 MG TAB PO SCH (08:11)
[2019-02-07] MEDS: Cefdinir 300 MG CAP PO SCH (08:12)
[2019-02-07] MEDS: Isosorbide Dinitrate 5 MG TAB PO SCH (08:12)
[2019-02-07] MEDS: Calcitriol 0.25 MCG CAP PO SCH (08:12)
[2019-02-07] MEDS: Apixaban 5 MG TAB PO SCH (08:12)
[2019-02-07] MEDS: Tacrolimus 1 MG CAP PO SCH (08:13)
[2019-02-07] MEDS: hydrALAZINE 25 MG TAB PO SCH (08:13)
[2019-02-07 08:21] VITALS: BP 104/56
[2019-02-07] MEDS: Acetaminophen 325 MG TAB PO PRN (09:27)
[2019-02-07] MEDS: Insulin Glargine 14 UNITS in Pre-Filled Syringe 1 EACH SC SCH (09:27)
--- NOTE | 2019-02-07 10:11 | PRG ---
DATE OF SERVICE: 02/07/2019 SUBJECTIVE: Mr. Gant is a 68-year-old male, followed up for his chronic renal failure/acute kidney injury. He was admitted for CHF. Clinically, much improved. Diuretics have been started by Cardiology. No other complaints today. He is ambulating better. OBJECTIVE: VITAL SIGNS: Blood pressure is 97/59 to as high as 104/56, heart rate 72, respiratory rate 18, pulse ox 100%. GENERAL: Awake, alert, and comfortable, not in overt distress. SKIN: Adequate turgor. HEENT: Pinkish conjunctivae. Anicteric sclerae. NECK: No neck mass. No carotid bruits. No JVD. CHEST: No deformities. LUNGS: Decreased breath sounds. HEART: Normal sinus rhythm. No murmur. No gallops. No rubs. ABDOMEN: Globular, soft, and nontender. EXTREMITIES: Trace edema. MEDICATIONS: Medications of February 07, 2019, were reviewed. LABORATORY DATA: Laboratories of February 07, 2019: White count 4.9, hemoglobin 9.7. Sodium 129, potassium 4.2, chloride 95, carbon dioxide 23, BUN 60, creatinine 1.66, magnesium 3.0, calcium 9.1. ASSESSMENT AND PLAN: 1. Chronic renal failure/acute kidney injury - stable renal function, tolerating current diuretic regimen. Agree with current management on low-dose Lasix. 2. Congestive heart failure, clinically improved. Status post automatic implantable cardioverter-defibrillator placement, on Lasix 40 mg tablet once a day. 3. Borderline anemia. Continue to observe. 4. Mild hyponatremia - multifactorial etiology. This could be from the previous effect of diuretics as well as dilutional hyponatremia from his congestive heart failure. Overall, awaiting rehab placement. Job ID: [id number]
[2019-02-07] MEDS: Insulin Regular 300 UNITS/3 ML VIAL SC PRN (11:57)
[2019-02-07 12:04] VITALS: TEMP 98
[2019-02-07] MEDS: Magnesium Oxide 400 MG TAB PO SCH ×2 (12:33)
--- NOTE | 2019-02-07 13:13 | PRG ---
DATE OF SERVICE: SUBJECTIVE: Mr. Gant is still in the hospital. He did not get transferred to rehab yesterday. Otherwise, he has no medical complaints. OBJECTIVE: VITAL SIGNS: Temperature is 99.9 BP 99/61. Weight 200 pounds. LUNGS: Clear. HEART: Reveals no murmur. LABORATORY DATA: His hemoglobin is 9.7, hematocrit 30.2. Sodium 129, potassium 4.0, chloride 95, CO2 of 23, BUN 60, creatinine 1.66. IMPRESSION: He is stable from a pulmonary edema standpoint. PLAN: Awaiting discharge. Hopefully, can discharge to rehab today. Job ID: [id number]
--- NOTE | 2019-02-08 09:13 | PRG ---
DATE OF SERVICE: 02/07/2019 Edmar Gant continues to improve slowly. His hemodynamics have been stable. Remainder of his exam is unchanged. He continues to tolerate negative fluid balance. He will transfer to rehab at some point for close monitoring of his renal function and his volume status. He would benefit from the physical therapy in my opinion. I met with his and answered all of her questions. Job ID: [id number]
== END 2019-02-07 14:35 | DRG 226 ==
LOC: SCSER 09:30 → SCSEROBS 11:07 → ERHOLD 14:14 → 2NO 17:40 → CCU 01-21 09:04
PROVIDERS: ADMIT Family Medicine; ATTEND Family Medicine
PROC: 0JH608Z Insertion of Defibrillator Generator into Chest Subcutaneous Tissue and Fascia, Open Approach (ICD-10-PCS; principal; 2019-02-01)
PROC: 02HK3KZ Insertion of Defibrillator Lead into Right Ventricle, Percutaneous Approach (ICD-10-PCS; 2019-02-01)
PROC: 02HL3KZ Insertion of Defibrillator Lead into Left Ventricle, Percutaneous Approach (ICD-10-PCS; 2019-02-01)
PROC: 02583ZZ Destruction of Conduction Mechanism, Percutaneous Approach (ICD-10-PCS; 2019-02-01)
PROC: 02K83ZZ Map Conduction Mechanism, Percutaneous Approach (ICD-10-PCS; 2019-02-01)
PROC: 4A023FZ Measurement of Cardiac Rhythm, Percutaneous Approach (ICD-10-PCS; 2019-02-01)
PROC: 4A0234Z Measurement of Cardiac Electrical Activity, Percutaneous Approach (ICD-10-PCS; 2019-02-01)
DX: I13.0 Hypertensive heart and chronic kidney disease with heart failure and stage 1 through stage 4 chronic kidney disease, or unspecified chronic kidney disease (principal); I50.23 Acute on chronic systolic (congestive) heart failure; J96.21 Acute and chronic respiratory failure with hypoxia; Z94.4 Liver transplant status; N17.9 Acute kidney failure, unspecified; E87.1 Hypo-osmolality and hyponatremia; I47.2 Ventricular tachycardia; T80.1XXA Vascular complications following infusion, transfusion and therapeutic injection, initial encounter; L03.115 Cellulitis of right lower limb; I48.0 Paroxysmal atrial fibrillation; Z96.651 Presence of right artificial knee joint; I42.8 Other cardiomyopathies; G47.33 Obstructive sleep apnea (adult) (pediatric); N18.3 Chronic kidney disease, stage 3 (moderate); I27.20 Pulmonary hypertension, unspecified; E87.6 Hypokalemia; I25.10 Atherosclerotic heart disease of native coronary artery without angina pectoris; I08.1 Rheumatic disorders of both mitral and tricuspid valves; D63.1 Anemia in chronic kidney disease; T50.2X5A Adverse effect of carbonic-anhydrase inhibitors, benzothiadiazides and other diuretics, initial encounter; E11.22 Type 2 diabetes mellitus with diabetic chronic kidney disease; I80.8 Phlebitis and thrombophlebitis of other sites; Y83.8 Other surgical procedures as the cause of abnormal reaction of the patient, or of later complication, without mention of misadventure at the time of the procedure; Z79.4 Long term (current) use of insulin; Z79.899 Other long term (current) drug therapy; Z79.01 Long term (current) use of anticoagulants; Z98.52 Vasectomy status
CPT/HCPCS: 33225; 33249; 36005; 36415; 36416; 71045; 75820; 76705; 80048; 80053; 80076; 80197; 82533; 82550; 82553; 82570; 82805; 83520; 83690; 83735; 83880; 84156; 84443; 84484; 85025; 85240; 85250; 85598; 85610; 85613; 85730; 86038; 86146; 86147; 86200; 86225; 86256; 87389; 93005; 93306; 93613; 93798; 93970; 94640; 94660; 96374; C1777; C1882; C1898; J0690; J0696; J1120; J1250; J1650; J1815; J1940; J2001; J2020; J2270; J2704; J3370; J3475; J3490; J7507; J7620; P9047; Q9967

== ENCOUNTER 2019-03-03 11:01 | Day surgery (SDC) | payer OTHER, MEDICARE ==
[2019-03-02 14:27] VITALS: BMI 31.6
[2019-03-03] MEDS ORDERED: PROPOFOL 200 MG/20 ML VIAL ONE (11:18)
[2019-03-03 12:13] LABS: INR-International Normal Ratio 1.8; PTT 42.1 SEC (22.9-36.1); Prothrombin Time 20.4 SEC (12.0-14.7)
[2019-03-03] MEDS ORDERED: Dextrose 50% Abboject 50 ML SYRINGE ONE (12:50)
[2019-03-03] MEDS ORDERED: PROPOFOL 20 ML ONE (13:43)
--- NOTE | 2019-03-03 15:48 | OP ---
DATE OF PROCEDURE: 03/03/2019 PROCEDURE PERFORMED: Electrical cardioversion. REASON FOR PROCEDURE: Mr. Gant is a 68-year-old male with prior history of chronic persistent atrial fibrillation, recently placed on amiodarone, hence advancing heart failure in an attempt to restore sinus rhythm. DESCRIPTION OF PROCEDURE: The patient received propofol by Anesthesia specialist. After adequate level of sedation achieved, a 35 joule internal shock failed to convert the patient back to sinus rhythm. Following that, a 360 joule synchronized external shock converted him back to sinus rhythm. The return rhythm was ventricular paced on inhibiting the pacemaker. We were able to ascertain sinus bradycardia with high-grade AV block and slow effective ventricular rhythm. The ventricular pacing was restored. PLAN: Continue loading with amiodarone and monitor for recurrent atrial arrhythmias. If sinus rhythm maintains, we will consider atrial lead in addition to his Bi-V/His bundle pacemaker. Continue oral anticoagulation in the interim as well. Job ID: [id number]
--- NOTE | 2019-03-03 18:52 | EKG ---
Test Reason : PREOP Blood Pressure : / mmHG Vent. Rate : 075 BPM Atrial Rate : 074 BPM P-R Int : 000 ms QRS Dur : 122 ms QT Int : 394 ms P-R-T Axes : 000 -01 186 degrees QTc Int : 439 ms Electronic ventricular pacemaker When compared with ECG of 19-JAN-2019 09:43, Electronic ventricular pacemaker has replaced Atrial fibrillation Confirmed by ARMAND BATISTA, DR. King (4) on 03/03/2019 6:52:23 PM Referred By: [facility] Confirmed By:DR. Christine ACUNA MD
--- NOTE | 2019-03-03 18:54 | EKG ---
Test Reason : PACER SUSPENSION Blood Pressure : / mmHG Vent. Rate : 033 BPM Atrial Rate : 340 BPM P-R Int : 000 ms QRS Dur : 092 ms QT Int : 398 ms P-R-T Axes : 000 -33 098 degrees QTc Int : 294 ms Junctional bradycardia Left axis deviation Low voltage QRS Inferior infarct , age undetermined Abnormal ECG When compared with ECG of 03-MAR-2019 12:00, (Unconfirmed) Junctional rhythm has replaced Electronic ventricular pacemaker Vent. rate has decreased BY 42 BPM Confirmed by ARMAND BATISTA, DR. King (4) on 03/03/2019 6:53:59 PM Referred By: [facility] Confirmed By:DR. Christine ACUNA MD
--- NOTE | 2019-03-03 18:56 | EKG ---
Test Reason : PACER SUSPENSION Blood Pressure : / mmHG Vent. Rate : 031 BPM Atrial Rate : 053 BPM P-R Int : 000 ms QRS Dur : 098 ms QT Int : 430 ms P-R-T Axes : 080 -41 053 degrees QTc Int : 308 ms Sinus bradycardia with complete heart block Left axis deviation Inferior infarct (cited on or before 03-MAR-2019) Abnormal ECG When compared with ECG of 03-MAR-2019 13:40, (Unconfirmed) Current undetermined rhythm precludes rhythm comparison, needs review Confirmed by ARMAND BATISTA, SZuri (4) on 03/03/2019 6:55:55 PM Referred By: [facility] Confirmed By:DR. Chrisitne ACUNA MD
== END 2019-03-03 15:15 | disposition home or self-care (01) ==
LOC: CCL 11:01
PROVIDERS: ATTEND Internal Medicine Cardiovascular Disease
PROC: 5A2204Z Restoration of Cardiac Rhythm, Single (ICD-10-PCS; principal; 2019-03-03)
DX: I48.19 Other persistent atrial fibrillation (principal); Z79.01 Long term (current) use of anticoagulants; Z95.0 Presence of cardiac pacemaker
CPT/HCPCS: 36416; 85610; 85730; 92960; 93005; 93010; J2704

== ENCOUNTER 2019-03-29 11:47 | Outpatient (CLI) | payer OTHER, MEDICARE ==
--- NOTE | 2019-03-29 14:32 | MRI ---
MRI ABDOMEN WITHOUT CONTRAST: Date: 03/29/19 HISTORY: Abnormal liver function tests, liver transplant. Encounter for after care following a liver transplan t. COMPARISON: MRI abdomen dated 12/15/18. FINDINGS: The pericardial and right pleural effusion noted on the CT scan of 02/17/19 has resolved in the inter im. The patient is post cholecystectomy. No intra or extrahepatic biliary ductal dilatation is seen. No d efinite hepatic mass is noted. The spleen, adrenal glands, and right kidney are normal. Tiny cysts in the left kidney are better vis ualized on the previous exam. No ascites or lymphadenopathy seen in the abdomen. The pancreatic cysts in the neck/body of the pancreas are stable, measuring 12 x 9 x 15 mm and 9 x 6 x 7 mm, respectively . No portosplenic thrombosis is seen. There is no evidence of aneurysmal dilatation of the abdominal aorta. Bone marrow signal is normal. IMPRESSION: Essentially stable MRI of the abdomen since 12/15/18. POS: [facility]
== END 2019-03-29 11:48 | disposition home or self-care (01) ==
LOC: MRI 11:47
PROVIDERS: ATTEND Internal Medicine Hepatology
DX: Z48.23 Encounter for aftercare following liver transplant (principal); R94.5 Abnormal results of liver function studies
CPT/HCPCS: 74181

== ENCOUNTER 2019-11-22 14:27 | Outpatient (CLI) | payer OTHER, MEDICARE | END 2019-11-22 14:28 | disposition home or self-care (01) | LOC: ULT 14:27 | PROVIDERS: ATTEND Internal Medicine | DX: I50.22 Chronic systolic (congestive) heart failure (principal); I34.0 Nonrheumatic mitral (valve) insufficiency; Z94.4 Liver transplant status; Z92.25 Personal history of immunosuppression therapy | CPT/HCPCS: 36415; 80053; 83735; 83880; 85007; 85027; 93306 ==

== ENCOUNTER 2020-01-01 14:42 | Outpatient (CLI) | payer OTHER, MEDICARE | END 2020-01-01 14:43 | disposition home or self-care (01) | LOC: ULT 14:42 | PROVIDERS: ATTEND Internal Medicine | DX: I50.22 Chronic systolic (congestive) heart failure (principal); I08.0 Rheumatic disorders of both mitral and aortic valves; Z95.0 Presence of cardiac pacemaker | CPT/HCPCS: 93306 ==

== ENCOUNTER 2022-02-10 13:45 | Outpatient (CLI) | payer BC, MEDICARE | END 2022-02-10 13:46 | disposition home or self-care (01) | LOC: ULT 13:45 | PROVIDERS: ATTEND Internal Medicine | DX: I50.43 Acute on chronic combined systolic (congestive) and diastolic (congestive) heart failure (principal) | CPT/HCPCS: 93306 ==

== ENCOUNTER 2022-08-28 08:35 | Inpatient (IN) | payer BC, MEDICARE ==
[2022-08-28] MEDS ORDERED: Dextrose 5% in Water 1,000 ML IV PRN (09:30)
[2022-08-28] MEDS ORDERED: Dextrose 50% Abboject 50 ML SYRINGE IVP PRN (09:30)
[2022-08-28 09:50] LABS: #Eosinphils 0.2 thou/uL (0.0-0.7); #Lymphocytes 0.7 thou/uL (1.20-3.40); #Monocytes 0.7 thou/uL (0.11-0.59); #Neutrophils 3.5 thou/uL (1.40-6.50); %Basophils 0.2 % (0.0-1.0); %Eosinophils 3.6 % (0.0-10.0); %Lymphocytes 13.4 % (21.0-51.0); %Monocytes 13.4 % (0.0-10.0); %Neutrophils 69.5 % (42.0-75.0); Hemoglobin 12.3 g/dL (14.0-18.0); Mean Corpuscular HGB CONC 32.1 g/dL (32.0-36.0); Mean Corpuscular Hemoglobin 31.3 pg (27.0-31.0); Mean Corpuscular Volume 97.6 fl (78.0-98.0); Mean Platelet Volume 7.4 fL (7.4-10.4); Platelet Count 255 10x3/uL (130-400); RBC Distribution Width 12.6 % (11.5-14.5); Red Blood Cell (RBC) Count 3.93 mill/uL (4.70-6.10); White Blood Cell (WBC) Count 5.1 10x3/uL (4.8-10.8)
[2022-08-28 10:08] LABS: Anion Gap 12 mmol/L (10-20); BUN (Urea Nitrogen) 38 mg/dL (8.4-25.7); Calc. Creatinine Clearance 0 mL/min (70-130); Calcium 10.1 mg/dL (7.8-10.44); Carbon Dioxide 27 mmol/L (23-31); Chloride 104 mmol/L (98-107); Estimated GFR 45; Glucose 78 mg/dL (83-110); Sodium 138 mmol/L (136-145)
[2022-08-28 10:22] VITALS: BMI 37.3
[2022-08-28] MEDS: Empagliflozin 25 MG TAB PO SCH (10:22)
[2022-08-28] MEDS: Sacubitril 49 MG/Valsartan 51 MG TABLET PO SCH ×2 (10:23→20:05)
[2022-08-28] MEDS: Mycophenolate 250 MG CAP PO SCH ×2 (10:23→20:06)
[2022-08-28] MEDS: Ursodiol 300 MG CAP PO SCH ×2 (10:26→20:05)
[2022-08-28] MEDS: Insulin Glargine 30 UNITS/0.3 ML VIAL SC SCH (10:26)
[2022-08-28] MEDS ORDERED: Morphine 4 MG/ML VIAL SLOW IVP PRN (11:10)
[2022-08-28] MEDS: Carvedilol 25 MG TAB PO SCH (18:00)
[2022-08-28] MEDS ORDERED: Ondansetron PF 4 MG/2 ML Vial IVP PRN (18:36)
[2022-08-28] MEDS: Acetaminophen 325 MG TAB PO PRN (20:05)
[2022-08-28] MEDS: Rosuvastatin 10 MG TAB PO SCH (20:06)
[2022-08-28] MEDS: Apixaban 5 MG TAB PO SCH (20:06)
[2022-08-28] MEDS: Amoxicillin/Potassium Clav 875 MG TAB PO SCH (20:06)
[2022-08-29] MEDS: Bumetanide 1 MG TAB PO SCH (08:40)
[2022-08-29] MEDS: Carvedilol 25 MG TAB PO SCH ×2 (08:40→17:47)
[2022-08-29] MEDS: Insulin Glargine 30 UNITS/0.3 ML VIAL SC SCH (08:41)
[2022-08-29] MEDS: Amoxicillin/Potassium Clav 875 MG TAB PO SCH (08:41)
[2022-08-29] MEDS: Sacubitril 49 MG/Valsartan 51 MG TABLET PO SCH (08:41)
[2022-08-29] MEDS: Mycophenolate 250 MG CAP PO SCH ×2 (08:41→21:27)
[2022-08-29] MEDS: Empagliflozin 25 MG TAB PO SCH (08:41)
[2022-08-29] MEDS: Apixaban 5 MG TAB PO SCH ×2 (08:41→21:27)
[2022-08-29 09:12] LABS: #Eosinphils 0.2 thou/uL (0.0-0.7); #Lymphocytes 0.6 thou/uL (1.20-3.40); #Monocytes 0.5 thou/uL (0.11-0.59); #Neutrophils 3.5 thou/uL (1.40-6.50); %Eosinophils 3.9 % (0.0-10.0); %Lymphocytes 13.1 % (21.0-51.0); %Monocytes 10.8 % (0.0-10.0); %Neutrophils 72.1 % (42.0-75.0); Hemoglobin 12.5 g/dL (14.0-18.0); Mean Corpuscular HGB CONC 31.7 g/dL (32.0-36.0); Mean Corpuscular Hemoglobin 30.7 pg (27.0-31.0); Mean Corpuscular Volume 96.9 fl (78.0-98.0); Mean Platelet Volume 7.5 fL (7.4-10.4); Platelet Count 252 10x3/uL (130-400); RBC Distribution Width 12.7 % (11.5-14.5); Red Blood Cell (RBC) Count 4.09 mill/uL (4.70-6.10); White Blood Cell (WBC) Count 4.9 10x3/uL (4.8-10.8)
[2022-08-29 09:29] LABS: Anion Gap 15 mmol/L (10-20); BUN (Urea Nitrogen) 33 mg/dL (8.4-25.7); Calc. Creatinine Clearance 59 mL/min (70-130); Calcium 9.5 mg/dL (7.8-10.44); Carbon Dioxide 23 mmol/L (23-31); Chloride 102 mmol/L (98-107); Estimated GFR 46; Glucose 193 mg/dL (83-110); Magnesium 1.7 mg/dL (1.6-2.6); Potassium 4.7 mmol/L (3.5-5.1); Sodium 135 mmol/L (136-145)
[2022-08-29] MEDS ORDERED: Magnesium Oxide 400 MG TAB PO SCH (09:45)
[2022-08-29] MEDS: Ursodiol 300 MG CAP PO SCH ×2 (10:19→21:27)
[2022-08-29] MEDS: Acetaminophen 325 MG TAB PO PRN (10:23)
[2022-08-29] MEDS: HumaLOG 300 UNITS/3 ML VIAL SC PRN (11:36)
[2022-08-29] MEDS: Ampicillin/Sulbactam 3 GM in Sodium Chloride 0.9% 100 ML IVPB SCH (17:47)
[2022-08-29] MEDS: HYDROcodone/Acetaminophen 5/325 mg Tablet PO PRN (21:26)
[2022-08-29] MEDS: Sacubitril 24MG/Valsartan 26 MG TAB PO SCH (21:27)
[2022-08-29] MEDS: Rosuvastatin 10 MG TAB PO SCH (21:27)
[2022-08-30] MEDS: Ampicillin/Sulbactam 3 GM in Sodium Chloride 0.9% 100 ML IVPB SCH ×5 (00:23→23:12)
[2022-08-30] MEDS: Magnesium Oxide 400 MG TAB PO SCH ×3 (00:23→23:12)
[2022-08-30 06:23] LABS: #Eosinphils 0.2 thou/uL (0.0-0.7); #Lymphocytes 0.9 thou/uL (1.20-3.40); #Monocytes 0.6 thou/uL (0.11-0.59); #Neutrophils 2.5 thou/uL (1.40-6.50); %Basophils 0.4 % (0.0-1.0); %Eosinophils 4.2 % (0.0-10.0); %Lymphocytes 20.5 % (21.0-51.0); %Monocytes 14.4 % (0.0-10.0); %Neutrophils 60.5 % (42.0-75.0); Hemoglobin 12.8 g/dL (14.0-18.0); Mean Corpuscular HGB CONC 33.4 g/dL (32.0-36.0); Mean Corpuscular Hemoglobin 32.2 pg (27.0-31.0); Mean Corpuscular Volume 96.5 fl (78.0-98.0); Mean Platelet Volume 7.3 fL (7.4-10.4); Platelet Count 229 10x3/uL (130-400); RBC Distribution Width 12.5 % (11.5-14.5); Red Blood Cell (RBC) Count 3.97 mill/uL (4.70-6.10); White Blood Cell (WBC) Count 4.2 10x3/uL (4.8-10.8)
[2022-08-30] MEDS: Bumetanide 1 MG TAB PO SCH (06:40)
[2022-08-30 06:47] LABS: Anion Gap 14 mmol/L (10-20); BUN (Urea Nitrogen) 42 mg/dL (8.4-25.7); Calc. Creatinine Clearance 65 mL/min (70-130); Calcium 9.2 mg/dL (7.8-10.44); Carbon Dioxide 22 mmol/L (23-31); Chloride 103 mmol/L (98-107); Estimated GFR 50; Glucose 120 mg/dL (83-110); Magnesium 1.7 mg/dL (1.6-2.6); Potassium 4.3 mmol/L (3.5-5.1); Sodium 135 mmol/L (136-145)
[2022-08-30] MEDS: Ursodiol 300 MG CAP PO SCH ×2 (08:16→21:17)
[2022-08-30] MEDS: Insulin Glargine 30 UNITS/0.3 ML VIAL SC SCH (08:16)
[2022-08-30] MEDS: Apixaban 5 MG TAB PO SCH ×2 (08:16→21:17)
[2022-08-30] MEDS: Mycophenolate 250 MG CAP PO SCH ×2 (08:16→21:17)
[2022-08-30] MEDS: Empagliflozin 25 MG TAB PO SCH (08:16)
[2022-08-30] MEDS: Sacubitril 24MG/Valsartan 26 MG TAB PO SCH ×2 (08:16→21:17)
[2022-08-30] MEDS: Carvedilol 25 MG TAB PO SCH ×2 (08:16→17:10)
[2022-08-30] MEDS: Acetaminophen 325 MG TAB PO PRN ×2 (08:32→15:23)
[2022-08-30] MEDS ORDERED: Magnesium 2 GM/50 ML(in water) 2 GM in Premix Bag 1 BAG IVPB SCH (08:45)
[2022-08-30] MEDS: HumaLOG 300 UNITS/3 ML VIAL SC PRN (11:50)
[2022-08-30] MEDS: Rosuvastatin 10 MG TAB PO SCH (21:17)
[2022-08-30] MEDS: HYDROcodone/Acetaminophen 5/325 mg Tablet PO PRN (21:17)
[2022-08-31] MEDS: Ampicillin/Sulbactam 3 GM in Sodium Chloride 0.9% 100 ML IVPB SCH (05:40)
[2022-08-31 06:14] LABS: Anion Gap 14 mmol/L (10-20); BUN (Urea Nitrogen) 65 mg/dL (8.4-25.7); Calc. Creatinine Clearance 51 mL/min (70-130); Calcium 8.9 mg/dL (7.8-10.44); Carbon Dioxide 23 mmol/L (23-31); Chloride 102 mmol/L (98-107); Estimated GFR 38; Glucose 93 mg/dL (83-110); Hemoglobin 12.7 g/dL (14.0-18.0); Magnesium 2.3 mg/dL (1.6-2.6); Mean Corpuscular HGB CONC 32.5 g/dL (32.0-36.0); Mean Corpuscular Hemoglobin 31.2 pg (27.0-31.0); Mean Platelet Volume 7.3 fL (7.4-10.4); Platelet Count 230 10x3/uL (130-400); Potassium 4.4 mmol/L (3.5-5.1); RBC Distribution Width 12.5 % (11.5-14.5); Red Blood Cell (RBC) Count 4.07 mill/uL (4.70-6.10); Sodium 135 mmol/L (136-145); White Blood Cell (WBC) Count 4.4 10x3/uL (4.8-10.8)
[2022-08-31] MEDS: Acetaminophen 325 MG TAB PO PRN (10:02)
[2022-08-31] MEDS: Sacubitril 24MG/Valsartan 26 MG TAB PO SCH (10:05)
[2022-08-31] MEDS: Mycophenolate 250 MG CAP PO SCH (10:05)
[2022-08-31] MEDS: Apixaban 5 MG TAB PO SCH (10:06)
[2022-08-31] MEDS: Carvedilol 25 MG TAB PO SCH ×2 (10:06→17:04)
[2022-08-31] MEDS: Empagliflozin 25 MG TAB PO SCH (10:06)
[2022-08-31] MEDS: Ursodiol 300 MG CAP PO SCH (10:09)
[2022-08-31] MEDS: Insulin Glargine 30 UNITS/0.3 ML VIAL SC SCH (10:11)
[2022-08-31 11:20] LABS: Band 1 % (5-11); Eosinophils 4 % (0-10); Lymphocytes 24 % (21-51); MDiff Complete? YES; Monocytes 9 % (0-10); Neutrophil 62 % (42-75); RBC Morphology Normal
[2022-08-31] MEDS: HYDROcodone/Acetaminophen 5/325 mg Tablet PO PRN (12:03)
[2022-08-31] MEDS: Magnesium Oxide 400 MG TAB PO SCH (12:04)
[2022-08-31] MEDS: HumaLOG 300 UNITS/3 ML VIAL SC PRN (17:04)
[2022-08-31 18:14] VITALS: BP 92/63; TEMP 97.8
== END 2022-08-31 18:15 | disposition home health service (06) | DRG 605 ==
LOC: SURG A 08:43 → SJJU 09:05
PROVIDERS: ADMIT Internal Medicine Critical Care Medicine; ATTEND Internal Medicine Critical Care Medicine
DX: S81.801A Unspecified open wound, right lower leg, initial encounter (principal); D84.81 Immunodeficiency due to conditions classified elsewhere; I13.0 Hypertensive heart and chronic kidney disease with heart failure and stage 1 through stage 4 chronic kidney disease, or unspecified chronic kidney disease; I42.8 Other cardiomyopathies; I48.19 Other persistent atrial fibrillation; Z94.4 Liver transplant status; I44.2 Atrioventricular block, complete; I50.22 Chronic systolic (congestive) heart failure; N18.4 Chronic kidney disease, stage 4 (severe); E11.51 Type 2 diabetes mellitus with diabetic peripheral angiopathy without gangrene; Z96.659 Presence of unspecified artificial knee joint; I11.0 Hypertensive heart disease with heart failure; E11.22 Type 2 diabetes mellitus with diabetic chronic kidney disease; Z96.649 Presence of unspecified artificial hip joint; G47.33 Obstructive sleep apnea (adult) (pediatric); W18.09XA Striking against other object with subsequent fall, initial encounter; Z95.0 Presence of cardiac pacemaker; Z82.49 Family history of ischemic heart disease and other diseases of the circulatory system; Z83.3 Family history of diabetes mellitus; Z79.899 Other long term (current) drug therapy; Z79.01 Long term (current) use of anticoagulants; Z79.84 Long term (current) use of oral hypoglycemic drugs; Z79.4 Long term (current) use of insulin
CPT/HCPCS: 36415; 36416; 80048; 83735; 83880; 84145; 85025; 85652; 86140; 87070; 87205; 97139; J0295; J1815; J2270; J3475; J3490; J7517; J7520

== ENCOUNTER 2023-01-06 14:28 | Outpatient (CLI) | payer BC, MEDICARE | END 2023-01-06 14:29 | disposition home or self-care (01) | LOC: ULT 14:28 | PROVIDERS: ATTEND Internal Medicine | DX: I50.42 Chronic combined systolic (congestive) and diastolic (congestive) heart failure (principal); I44.2 Atrioventricular block, complete; I51.89 Other ill-defined heart diseases | CPT/HCPCS: 93306 ==

== ENCOUNTER 2023-09-20 05:49 | Inpatient (IN) | payer BC, MEDICARE ==
[2023-09-20] MEDS ORDERED: Vancomycin (BATCH) 1.5 GM/300 ML BAG ONE (06:06)
[2023-09-20] MEDS ORDERED: Tranexamic Acid 1,000 MG/10 ML VIAL ONE (06:06)
[2023-09-20] MEDS ORDERED: CEFAZOLIN 2 GM VIAL ONE (06:06)
[2023-09-20] MEDS ORDERED: Sodium Chloride 0.9% 100 ML ONE ×2 (06:06→06:07)
[2023-09-20] MEDS ORDERED: Bupivacaine PF 0.5% 30 ML VIAL ONE ×2 (06:26→08:28)
[2023-09-20] MEDS ORDERED: Zolpidem Tartrate 5 MG TAB PO PRN ×2 (06:47→08:00)
[2023-09-20] MEDS ORDERED: fentaNYL 50 mcg/mL 1 mL Vial SLOW IVP PRN ×2 (06:47→07:59)
[2023-09-20] MEDS ORDERED: Promethazine HCl 25 MG/ML VIAL IM PRN ×2 (06:47→08:00)
[2023-09-20] MEDS ORDERED: HYDROcodone/Acetaminophen 10/325 mg Tablet PO PRN ×3 (06:47→08:00)
[2023-09-20] MEDS ORDERED: Ondansetron PF 4 MG/2 ML Vial IVP PRN (06:47)
[2023-09-20] MEDS ORDERED: diphenhydrAMINE 25 MG CAP PO PRN (06:47)
[2023-09-20] MEDS ORDERED: Midazolam HCl 2 mg/2 ml Vial ONE (06:54)
[2023-09-20] MEDS ORDERED: fentaNYL 50 mcg/mL 1 mL Vial ONE (06:54)
[2023-09-20] MEDS ORDERED: Bupivacaine HCl 0.5%/Epinephrine 1:200,000/PF 30 ml Vial ONE (07:10)
[2023-09-20] MEDS ORDERED: Lidocaine 1% PF 5 ML VIAL ONE (07:20)
[2023-09-20] MEDS ORDERED: PROPOFOL 40 ML ONE (07:20)
[2023-09-20] MEDS ORDERED: ePHEDrine Sulfate 50 MG/10 ML VIAL ONE (07:44)
[2023-09-20] MEDS ORDERED: Ondansetron PF 4 MG/2 ML Vial ONE (07:58)
[2023-09-20] MEDS ORDERED: Ropivacaine 0.2% 550 ML 550 ML NERVE BLCK SCH (08:00)
[2023-09-20] MEDS ORDERED: Vancomycin 1 GM VIAL ONE (08:05)
[2023-09-20] MEDS ORDERED: PHENYLEPHRINE-NS 100 MCG/ML 10 ML SYRINGE ONE ×2 (08:12→08:23)
[2023-09-20] MEDS: Empagliflozin 25 MG TAB PO SCH (11:09)
[2023-09-20] MEDS: Magnesium Oxide 250 MG TAB PO SCH (11:09)
[2023-09-20] MEDS: Calcium Carbonate 600 MG + Vit D TAB PO SCH (11:09)
[2023-09-20] MEDS: Ferrous Gluconate 324 MG TAB PO SCH (11:09)
[2023-09-20] MEDS: Calcitriol 0.25 MCG CAP PO SCH (11:09)
[2023-09-20] MEDS: Multivitamin W/ Minerals 1 TAB PO SCH (11:09)
[2023-09-20] MEDS: Aspirin 81 mg Enteric Coated Tablet PO SCH (11:09)
[2023-09-20] MEDS: Sodium Chloride 0.9% 1,000 ML IV SCH (11:10)
[2023-09-20] MEDS: Senokot S 8.6-50 MG TAB PO SCH (11:10)
[2023-09-20] MEDS: Sertraline 100 MG TAB PO SCH (11:10)
[2023-09-20] MEDS: CEFAZOLIN 2 GM in Sodium Chloride 0.9% 100 ML IVPB SCH (13:59)
[2023-09-20] MEDS: Mycophenolate 250 MG CAP PO SCH (14:13)
[2023-09-20] MEDS: Carvedilol 6.25 MG TAB PO SCH (14:13)
[2023-09-20] MEDS: Sacubitril 49 MG/Valsartan 51 MG TABLET PO SCH (14:13)
[2023-09-20] MEDS: Bumetanide 1 MG TAB PO SCH (14:13)
[2023-09-20] MEDS: Amiodarone 200 MG TAB PO SCH (14:13)
[2023-09-20] MEDS: Ursodiol 300 MG CAP PO SCH (14:14)
[2023-09-20] MEDS ORDERED: Dextrose 50% Abboject 50 ML SYRINGE SLOW IVP PRN (15:19)
[2023-09-20] MEDS ORDERED: Dextrose 5% in Water 1,000 ML IV PRN (15:19)
[2023-09-20] MEDS ORDERED: Glucagon 1 MG/ML KIT IM PRN (15:19)
[2023-09-20] MEDS: traMADol HCl 50 MG TAB PO PRN (16:24)
[2023-09-20] MEDS: HYDROcodone/Acetaminophen 10/325 mg Tablet PO PRN (18:10)
[2023-09-20] MEDS: Rosuvastatin 10 MG TAB PO SCH (20:50)
[2023-09-20] MEDS ORDERED: MULTIVITAMIN PO SCH (21:00)
[2023-09-21 05:25] LABS: Hematocrit 38.2 % (42.0-52.0); Hemoglobin 12.2 g/dL (14.0-18.0); Mean Corpuscular HGB CONC 31.9 g/dL (32.0-36.0); Mean Corpuscular Volume 94.1 fL (78.0-98.0); Mean Platelet Volume 9.9 fL (7.4-10.4); Platelet Count 196 10x3/uL (130-400); RBC Distribution Width 14.6 % (11.5-14.5); Red Blood Cell (RBC) Count 4.06 mill/uL (4.70-6.10)
[2023-09-21 05:56] LABS: Anion Gap 12 mmol/L (10-20); Globulin 3.6 g/dL (2.4-3.5)
[2023-09-21 06:00] LABS: BUN (Urea Nitrogen) 34 mg/dL (8.4-25.7); Calc. Creatinine Clearance 45 mL/min (70-130); Carbon Dioxide 21 mmol/L (23-31); Chloride 103 mmol/L (98-107); Potassium 4.3 mmol/L (3.5-5.1); Sodium 132 mmol/L (136-145)
[2023-09-21 06:01] LABS: ALT (SGPT) 16 U/L (8-55); AST (SGOT) 26 U/L (5-34); Alkaline Phosphatase 122 U/L (40-110); Bilirubin, Total 0.6 mg/dL (0.2-1.2); Calcium 9.1 mg/dL (7.8-10.44); Estimated GFR 38; Glucose 161 mg/dL (83-110); Protein, Total 6.6 g/dL (5.8-8.1)
[2023-09-21] MEDS: Semaglutide [Ozempic] 2 MG/0.75 ML Pen.Injctr SC SCH (08:56)
[2023-09-21] MEDS: HumaLOG 300 UNITS/3 ML VIAL SC PRN (12:00)
[2023-09-22 09:31] LABS: #Basophils Less than 0.03 10x3/uL (0.0-0.2); %Basophils 0.3 % (0.0-1.0); %Eosinophils 0.8 % (0.0-10.0); %Lymphocytes 7.7 % (21.0-51.0); %Monocytes 11.5 % (0.0-10.0); %Neutrophils 78.9 % (42.0-75.0); Hematocrit 33.2 % (42.0-52.0); Hemoglobin 10.7 g/dL (14.0-18.0); Mean Corpuscular HGB CONC 32.2 g/dL (32.0-36.0); Mean Corpuscular Hemoglobin 30.1 pg (27.0-31.0); Mean Corpuscular Volume 93.5 fL (78.0-98.0); Mean Platelet Volume 10.2 fL (7.4-10.4); Platelet Count 152 10x3/uL (130-400); RBC Distribution Width 14.6 % (11.5-14.5); Red Blood Cell (RBC) Count 3.55 mill/uL (4.70-6.10)
[2023-09-22 10:02] LABS: Anion Gap 15 mmol/L (10-20)
[2023-09-22 10:58] LABS: BUN (Urea Nitrogen) 56 mg/dL (8.4-25.7); Calc. Creatinine Clearance 27 mL/min (70-130); Calcium 8.9 mg/dL (7.8-10.44); Carbon Dioxide 20 mmol/L (23-31); Chloride 96 mmol/L (98-107); Estimated GFR 20; Glucose 169 mg/dL (83-110); Potassium 4.7 mmol/L (3.5-5.1); Sodium 126 mmol/L (136-145)
[2023-09-22] MEDS: Sodium Chloride 0.9% 500 ML IVPB SCH (12:30)
[2023-09-22] MEDS: Acetaminophen 325 MG TAB PO PRN (13:16)
[2023-09-22] MEDS: traMADol HCl 50 MG TAB PO PRN (16:05)
[2023-09-22] MEDS: Albumin 25% 25 GM (100 mL) BOT IVPB SCH ×2 (16:16→20:44)
[2023-09-22 16:54] LABS: Albumin 2.4 g/dL (3.4-4.8); Anion Gap 15 mmol/L (10-20); BUN (Urea Nitrogen) 59 mg/dL (8.4-25.7); BUN/Creatinine Ratio 18.21; Calc. Creatinine Clearance 26 mL/min (70-130); Calcium 8.4 mg/dL (7.8-10.44); Carbon Dioxide 17 mmol/L (23-31); Chloride 99 mmol/L (98-107); Estimated GFR 19; Glucose 165 mg/dL (83-110); Phosphorus 3.8 mg/dL (2.3-4.7); Potassium 4.9 mmol/L (3.5-5.1); Sodium 126 mmol/L (136-145)
[2023-09-22 17:36] LABS: Bilirubin Negative (Negative); Blood, Urine Negative (Negative); Glucose, Urine (Dipstick) 300 mg/dL (Negative); Ketone, Urine Trace mg/dL (Negative); Leukocyte Negative Leu/uL (Negative); Nitrite Negative (Negative); Protein, Urine (Dipstick) 30 mg/dL (Neg-Trace); RBC/HPF 0-3 HPF (0-3); Specific Gravity, Urine 1.022 (1.002-1.036); Squamous Epithelial 0-3 HPF (0-3); Urobilinogen Normal mg/dL (Less than 2)
[2023-09-22 17:38] LABS: Bacteria/HPF Rare-Few HPF (None Seen); Clarity Slightly Cloudy (Clear); Transitional Epithelial 0-3 HPF (None Seen)
[2023-09-22 17:39] LABS: Calcium Oxalate Crystals 1+ HPF (None Seen)
[2023-09-22] MEDS: Sodium Bicarbonate 150 MEQ in Sterile Water 1,000 ML IV SCH (17:39)
[2023-09-22 17:47] LABS: Creatinine, Urine 183.33 mg/dL (63-166); Protein, Urine Random Quant 34 mg/dL (1-14); Sodium, Urine Less than 20 mmol/L (Not Available)
[2023-09-22] MEDS: Midodrine HCl 5 MG TAB PO SCH (20:30)
[2023-09-22] MEDS: Sodium Chloride 0.9% 1,000 ML IV SCH (20:35)
[2023-09-22] MEDS ORDERED: DOBUTamine 500 mg/250 ml 250 ML IVPB SCH (21:45)
[2023-09-22] MEDS: NOREPINEPHRINE 8 MG/250 ML-D5W 250 ML IVPB SCH (22:15)
[2023-09-23 05:40] LABS: #Basophils Less than 0.03 10x3/uL (0.0-0.2); %Basophils 0.2 % (0.0-1.0); %Eosinophils 1.3 % (0.0-10.0); %Lymphocytes 8.6 % (21.0-51.0); %Monocytes 10.6 % (0.0-10.0); %Neutrophils 78.8 % (42.0-75.0); Hematocrit 30.9 % (42.0-52.0); Hemoglobin 10.4 g/dL (14.0-18.0); Mean Corpuscular HGB CONC 33.7 g/dL (32.0-36.0); Mean Corpuscular Hemoglobin 29.9 pg (27.0-31.0); Mean Corpuscular Volume 88.8 fL (78.0-98.0); Mean Platelet Volume 10.1 fL (7.4-10.4); Platelet Count 152 10x3/uL (130-400); RBC Distribution Width 14.2 % (11.5-14.5); Red Blood Cell (RBC) Count 3.48 mill/uL (4.70-6.10)
[2023-09-23 06:04] LABS: Anion Gap 18 mmol/L (10-20); Globulin 2.9 g/dL (2.4-3.5)
[2023-09-23 06:08] LABS: ALT (SGPT) 140 U/L (8-55); AST (SGOT) 354 U/L (5-34); Albumin 3.8 g/dL (3.4-4.8); Alkaline Phosphatase 102 U/L (40-110); BUN (Urea Nitrogen) 60 mg/dL (8.4-25.7); Bilirubin, Total 1.5 mg/dL (0.2-1.2); Calc. Creatinine Clearance 29 mL/min (70-130); Calcium 8.9 mg/dL (7.8-10.44); Carbon Dioxide 19 mmol/L (23-31); Chloride 93 mmol/L (98-107); Estimated GFR 19; Glucose 157 mg/dL (83-110); Lactic Acid 1.3 mmol/L (0.5-2.2); Potassium 4.5 mmol/L (3.5-5.1); Protein, Total 6.7 g/dL (5.8-8.1); Sodium 125 mmol/L (136-145)
[2023-09-23] MEDS ORDERED: Lactated Ringer's 500 ML IV SCH (10:00)
[2023-09-23] MEDS: Sodium Chloride 0.9% 500 ML IV SCH (10:41)
[2023-09-23] MEDS: DOBUTamine 500 mg/250 ml 250 ML IVPB SCH (15:04)
[2023-09-24 04:51] LABS: #Basophils Less than 0.03 10x3/uL (0.0-0.2); %Basophils 0.2 % (0.0-1.0); %Eosinophils 2.4 % (0.0-10.0); %Monocytes 9.8 % (0.0-10.0); %Neutrophils 81.2 % (42.0-75.0); Hematocrit 31.3 % (42.0-52.0); Hemoglobin 10.4 g/dL (14.0-18.0); Mean Corpuscular HGB CONC 33.2 g/dL (32.0-36.0); Mean Corpuscular Hemoglobin 29.2 pg (27.0-31.0); Mean Corpuscular Volume 87.9 fL (78.0-98.0); Mean Platelet Volume 10.6 fL (7.4-10.4); Platelet Count 140 10x3/uL (130-400); RBC Distribution Width 14.1 % (11.5-14.5); Red Blood Cell (RBC) Count 3.56 mill/uL (4.70-6.10)
[2023-09-24 05:23] LABS: Anion Gap 15 mmol/L (10-20); Globulin 2.6 g/dL (2.4-3.5)
[2023-09-24 05:28] LABS: ALT (SGPT) 91 U/L (8-55); AST (SGOT) 190 U/L (5-34); Albumin 3.6 g/dL (3.4-4.8); Alkaline Phosphatase 91 U/L (40-110); BUN (Urea Nitrogen) 62 mg/dL (8.4-25.7); Bilirubin, Total 1.6 mg/dL (0.2-1.2); Calc. Creatinine Clearance 35 mL/min (70-130); Calcium 8.4 mg/dL (7.8-10.44); Carbon Dioxide 25 mmol/L (23-31); Chloride 90 mmol/L (98-107); Estimated GFR 23; Glucose 163 mg/dL (83-110); Potassium 3.8 mmol/L (3.5-5.1); Protein, Total 6.2 g/dL (5.8-8.1); Sodium 126 mmol/L (136-145)
[2023-09-24] MEDS: Albumin 25% 25 GM (100 mL) BOT IVPB SCH ×2 (08:54→11:58)
[2023-09-24] MEDS: Sodium Bicarbonate 75 MEQ in Sodium Chloride 0.45% 1,000 ML IV SCH (09:35)
[2023-09-24] MEDS: Hydrocortisone Sod Succ/PF 100 mg/2 ml Vial IVP SCH ×2 (11:57→17:49)
[2023-09-24 12:44] LABS: Actual Bicarbonate (HCO3v) 23.4 mEq/L (22-28); Base Excess -1.1 mEq/L (-2.0 to +3.0); Calcium, Ionized (venous) 0.97 mmol/L (1.16-1.32); Chloride (VBG) 87 mmol/L (98-106); Hematocrit-VBG 32 % (42.0-52.0); Potassium (VBG) 3.99 mmol/L (3.70-5.30); Sodium 125 mmol/L (133-146); pH (venous) 7.404 (7.32-7.43)
[2023-09-24] MEDS: HYDROcodone/Acetaminophen 10/325 mg Tablet PO PRN (14:50)
[2023-09-24] MEDS: Apixaban 5 MG TAB PO SCH (21:23)
[2023-09-25] MEDS: Ondansetron PF 4 MG/2 ML Vial IVP PRN (01:08)
[2023-09-25] MEDS: Sodium Bicarbonate 75 MEQ in Sodium Chloride 0.45% 1,000 ML IV SCH (03:45)
[2023-09-25 04:01] LABS: #Basophils Less than 0.03 10x3/uL (0.0-0.2); #Eosinphils Less than 0.03 10x3/uL (0.0-0.7); %Basophils 0.2 % (0.0-1.0); %Lymphocytes 2.9 % (21.0-51.0); %Monocytes 6.2 % (0.0-10.0); Hematocrit 29.2 % (42.0-52.0); Hemoglobin 9.9 g/dL (14.0-18.0); Mean Corpuscular HGB CONC 33.9 g/dL (32.0-36.0); Mean Corpuscular Hemoglobin 29.7 pg (27.0-31.0); Mean Corpuscular Volume 87.7 fL (78.0-98.0); Platelet Count 138 10x3/uL (130-400); RBC Distribution Width 14.1 % (11.5-14.5); Red Blood Cell (RBC) Count 3.33 mill/uL (4.70-6.10)
[2023-09-25 04:25] LABS: Anion Gap 20 mmol/L (10-20)
[2023-09-25 04:28] LABS: BUN (Urea Nitrogen) 64 mg/dL (8.4-25.7); Calc. Creatinine Clearance 35 mL/min (70-130); Calcium 8.5 mg/dL (7.8-10.44); Carbon Dioxide 25 mmol/L (23-31); Chloride 86 mmol/L (98-107); Estimated GFR 23; Glucose 184 mg/dL (83-110); Potassium 3.9 mmol/L (3.5-5.1); Sodium 127 mmol/L (136-145)
[2023-09-25] MEDS: Multivit, Therapeutic 1 TAB PO SCH (09:09)
[2023-09-25] MEDS: Furosemide 20 MG (2 mL) VIAL SLOW IVP SCH (09:14)
[2023-09-25] MEDS: tiZANidine HCl 4 MG TAB PO PRN (11:23)
[2023-09-25] MEDS: Furosemide 20 MG TAB PO SCH (14:47)
[2023-09-25] MEDS: HumaLOG 300 UNITS/3 ML VIAL SC PRN (20:45)
[2023-09-25] MEDS: Melatonin 3 MG TAB PO SCH (22:44)
[2023-09-26] MEDS: traZODone HCl 50 MG TAB PO SCH (00:19)
[2023-09-26 04:16] LABS: #Basophils Less than 0.03 10x3/uL (0.0-0.2); #Eosinphils Less than 0.03 10x3/uL (0.0-0.7); %Lymphocytes 3.6 % (21.0-51.0); %Monocytes 8.1 % (0.0-10.0); %Neutrophils 87.9 % (42.0-75.0); Hematocrit 28.8 % (42.0-52.0); Hemoglobin 9.8 g/dL (14.0-18.0); Mean Corpuscular Hemoglobin 30.3 pg (27.0-31.0); Mean Corpuscular Volume 89.2 fL (78.0-98.0); Mean Platelet Volume 9.8 fL (7.4-10.4); Platelet Count 156 10x3/uL (130-400); RBC Distribution Width 14.1 % (11.5-14.5); Red Blood Cell (RBC) Count 3.23 mill/uL (4.70-6.10)
[2023-09-26 04:27] LABS: Anion Gap 17 mmol/L (10-20); Globulin 2.6 g/dL (2.4-3.5)
[2023-09-26 04:31] LABS: ALT (SGPT) 49 U/L (8-55); AST (SGOT) 85 U/L (5-34); Albumin 3.7 g/dL (3.4-4.8); Alkaline Phosphatase 79 U/L (40-110); BUN (Urea Nitrogen) 61 mg/dL (8.4-25.7); Bilirubin, Total 1.1 mg/dL (0.2-1.2); Calc. Creatinine Clearance 38 mL/min (70-130); Calcium 8.6 mg/dL (7.8-10.44); Carbon Dioxide 25 mmol/L (23-31); Chloride 86 mmol/L (98-107); Estimated GFR 25; Glucose 221 mg/dL (83-110); Magnesium 2.6 mg/dL (1.6-2.6); Potassium 3.6 mmol/L (3.5-5.1); Protein, Total 6.3 g/dL (5.8-8.1); Sodium 124 mmol/L (136-145)
[2023-09-26] MEDS: Sodium Chloride 1 GM TAB PO SCH (08:59)
[2023-09-26] MEDS: Furosemide 20 MG TAB PO SCH (09:00)
[2023-09-26] MEDS: CALCIUM GLUC 1 GM/NS 50 ML 1 GM in Premix 1 BAG IVPB SCH (15:27)
[2023-09-26] MEDS ORDERED: Calcium Gluconate 4.6 MEQ in Sodium Chloride 0.9% 100 ML IVPB ONE (15:30)
[2023-09-26 17:15] LABS: Anion Gap 17 mmol/L (10-20); Globulin 2.4 g/dL (2.4-3.5)
[2023-09-26 17:20] LABS: ALT (SGPT) 48 U/L (8-55); AST (SGOT) 75 U/L (5-34); Albumin 3.6 g/dL (3.4-4.8); Alkaline Phosphatase 78 U/L (40-110); BUN (Urea Nitrogen) 64 mg/dL (8.4-25.7); Calc. Creatinine Clearance 42 mL/min (70-130); Calcium 8.8 mg/dL (7.8-10.44); Carbon Dioxide 23 mmol/L (23-31); Chloride 89 mmol/L (98-107); Estimated GFR 27; Glucose 287 mg/dL (83-110); Potassium 3.4 mmol/L (3.5-5.1); Sodium 126 mmol/L (136-145)
[2023-09-26] MEDS: Potassium Chloride 20 MEQ TAB PO SCH (20:56)
[2023-09-26] MEDS: Potassium Chloride 10 MEQ in Premix 1 BAG IVPB SCH (20:57)
[2023-09-27 04:30] LABS: #Basophils Less than 0.03 10x3/uL (0.0-0.2); #Eosinphils Less than 0.03 10x3/uL (0.0-0.7); %Lymphocytes 5.1 % (21.0-51.0); %Monocytes 10.4 % (0.0-10.0); %Neutrophils 84.1 % (42.0-75.0); Hematocrit 32.1 % (42.0-52.0); Hemoglobin 10.5 g/dL (14.0-18.0); Mean Corpuscular HGB CONC 32.7 g/dL (32.0-36.0); Mean Corpuscular Hemoglobin 29.7 pg (27.0-31.0); Mean Corpuscular Volume 90.7 fL (78.0-98.0); Mean Platelet Volume 9.8 fL (7.4-10.4); Platelet Count 191 10x3/uL (130-400); RBC Distribution Width 14.1 % (11.5-14.5); Red Blood Cell (RBC) Count 3.54 mill/uL (4.70-6.10)
[2023-09-27 04:49] LABS: Anion Gap 16 mmol/L (10-20); Globulin 2.6 g/dL (2.4-3.5)
[2023-09-27 04:53] LABS: ALT (SGPT) 47 U/L (8-55); AST (SGOT) 64 U/L (5-34); Albumin 3.7 g/dL (3.4-4.8); Alkaline Phosphatase 77 U/L (40-110); BUN (Urea Nitrogen) 58 mg/dL (8.4-25.7); Bilirubin, Total 0.9 mg/dL (0.2-1.2); Calc. Creatinine Clearance 46 mL/min (70-130); Carbon Dioxide 27 mmol/L (23-31); Chloride 92 mmol/L (98-107); Estimated GFR 30; Glucose 239 mg/dL (83-110); Magnesium 2.7 mg/dL (1.6-2.6); Potassium 3.7 mmol/L (3.5-5.1); Protein, Total 6.3 g/dL (5.8-8.1); Sodium 131 mmol/L (136-145)
[2023-09-27] MEDS ORDERED: Potassium Chloride 20 MEQ TAB PO SCH (07:45)
[2023-09-27] MEDS: Amiodarone 200 MG TAB PO SCH (07:59)
[2023-09-27] MEDS: Potassium Chloride 20 MEQ TAB PO SCH ×2 (08:08→10:41)
[2023-09-27] MEDS: Amiodarone 150 MG, Admixture Fee 1 EACH in Dextrose 5% in Water 100 ML IVPB SCH ×2 (08:10→10:41)
[2023-09-27] MEDS: Potassium Chloride 10 MEQ in Premix 1 BAG IVPB SCH (08:16)
[2023-09-27] MEDS: Insulin Glargine 30 UNITS/0.3 ML VIAL SC SCH (09:19)
[2023-09-27] MEDS: Doxycycline 100 MG CAP PO SCH (09:20)
[2023-09-27] MEDS: Potassium Chloride 20 MEQ in Premix 1 BAG IVPB SCH (10:41)
[2023-09-27 11:54] LABS: Strep pneumo Urine Ag NEGATIVE (NEGATIVE)
[2023-09-27] MEDS: Hydrocortisone Sod Succ/PF 100 mg/2 ml Vial IVP SCH (17:41)
[2023-09-27] MEDS: Midodrine HCl 5 MG TAB PO SCH (19:59)
[2023-09-27 20:16] LABS: Anion Gap 18 mmol/L (10-20)
[2023-09-27 20:19] LABS: BUN (Urea Nitrogen) 60 mg/dL (8.4-25.7); Calc. Creatinine Clearance 47 mL/min (70-130); Calcium 8.9 mg/dL (7.8-10.44); Carbon Dioxide 21 mmol/L (23-31); Chloride 95 mmol/L (98-107); Estimated GFR 32; Glucose 295 mg/dL (83-110); Potassium 4.9 mmol/L (3.5-5.1); Sodium 129 mmol/L (136-145)
[2023-09-28 04:24] LABS: #Basophils Less than 0.03 10x3/uL (0.0-0.2); #Eosinphils Less than 0.03 10x3/uL (0.0-0.7); %Lymphocytes 6.9 % (21.0-51.0); %Monocytes 11.3 % (0.0-10.0); %Neutrophils 81.4 % (42.0-75.0); Hematocrit 31.5 % (42.0-52.0); Hemoglobin 10.2 g/dL (14.0-18.0); Mean Corpuscular HGB CONC 32.4 g/dL (32.0-36.0); Mean Corpuscular Hemoglobin 30.1 pg (27.0-31.0); Mean Corpuscular Volume 92.9 fL (78.0-98.0); Mean Platelet Volume 9.4 fL (7.4-10.4); Platelet Count 191 10x3/uL (130-400); RBC Distribution Width 14.5 % (11.5-14.5); Red Blood Cell (RBC) Count 3.39 mill/uL (4.70-6.10)
[2023-09-28 04:44] LABS: Anion Gap 12 mmol/L (10-20); Globulin 2.7 g/dL (2.4-3.5)
[2023-09-28 04:48] LABS: ALT (SGPT) 42 U/L (8-55); AST (SGOT) 49 U/L (5-34); Albumin 3.6 g/dL (3.4-4.8); Alkaline Phosphatase 72 U/L (40-110); BUN (Urea Nitrogen) 57 mg/dL (8.4-25.7); Bilirubin, Total 0.9 mg/dL (0.2-1.2); Calc. Creatinine Clearance 51 mL/min (70-130); Carbon Dioxide 27 mmol/L (23-31); Chloride 94 mmol/L (98-107); Estimated GFR 35; Glucose 214 mg/dL (83-110); Magnesium 2.6 mg/dL (1.6-2.6); Potassium 4.4 mmol/L (3.5-5.1); Protein, Total 6.3 g/dL (5.8-8.1); Sodium 129 mmol/L (136-145)
[2023-09-28] MEDS ORDERED: Amiodarone 200 MG TAB PO SCH (09:00)
[2023-09-28] MEDS: Potassium Chloride 10 MEQ TAB PO SCH (09:09)
[2023-09-28] MEDS: Amiodarone 200 MG TAB PO SCH (09:09)
[2023-09-28] MEDS: Empagliflozin 25 MG TAB PO SCH (09:09)
[2023-09-28] MEDS: Insulin Glargine 30 UNITS/0.3 ML VIAL SC SCH (09:10)
[2023-09-28] MEDS: Furosemide 20 MG (2 mL) VIAL SLOW IVP SCH (09:10)
[2023-09-28 18:53] LABS: Anion Gap 15 mmol/L (10-20)
[2023-09-28 18:56] LABS: BUN (Urea Nitrogen) 60 mg/dL (8.4-25.7); Calc. Creatinine Clearance 51 mL/min (70-130); Carbon Dioxide 29 mmol/L (23-31); Chloride 94 mmol/L (98-107); Estimated GFR 35; Glucose 269 mg/dL (83-110); Potassium 4.3 mmol/L (3.5-5.1); Sodium 134 mmol/L (136-145)
[2023-09-29 03:45] LABS: #Basophils Less than 0.03 10x3/uL (0.0-0.2); #Eosinphils Less than 0.03 10x3/uL (0.0-0.7); %Monocytes 11.4 % (0.0-10.0); %Neutrophils 79.7 % (42.0-75.0); Hematocrit 32.3 % (42.0-52.0); Hemoglobin 10.5 g/dL (14.0-18.0); Mean Corpuscular HGB CONC 32.5 g/dL (32.0-36.0); Mean Corpuscular Hemoglobin 29.4 pg (27.0-31.0); Mean Corpuscular Volume 90.5 fL (78.0-98.0); Mean Platelet Volume 9.8 fL (7.4-10.4); Platelet Count 219 10x3/uL (130-400); RBC Distribution Width 14.6 % (11.5-14.5); Red Blood Cell (RBC) Count 3.57 mill/uL (4.70-6.10)
[2023-09-29 04:12] LABS: Globulin 2.7 g/dL (2.4-3.5)
[2023-09-29 04:17] LABS: ALT (SGPT) 37 U/L (8-55); AST (SGOT) 36 U/L (5-34); Albumin 3.6 g/dL (3.4-4.8); Alkaline Phosphatase 74 U/L (40-110); Anion Gap 14 mmol/L (10-20); BUN (Urea Nitrogen) 56 mg/dL (8.4-25.7); Bilirubin, Total 0.8 mg/dL (0.2-1.2); Calc. Creatinine Clearance 56 mL/min (70-130); Calcium 9.1 mg/dL (7.8-10.44); Carbon Dioxide 27 mmol/L (23-31); Chloride 95 mmol/L (98-107); Estimated GFR 39; Glucose 249 mg/dL (83-110); Magnesium 2.5 mg/dL (1.6-2.6); Potassium 4.2 mmol/L (3.5-5.1); Protein, Total 6.3 g/dL (5.8-8.1); Sodium 132 mmol/L (136-145)
[2023-09-29] MEDS: Furosemide 20 MG (2 mL) VIAL SLOW IVP SCH (08:10)
[2023-09-29] MEDS: Potassium Chloride 10 MEQ TAB PO SCH (08:10)
[2023-09-29] MEDS: Insulin Glargine 30 UNITS/0.3 ML VIAL SC SCH (09:20)
[2023-09-29] MEDS: Milrinone Lactate/D5W 20 MG in Premix 1 BAG IV SCH ×2 (11:42→23:30)
[2023-09-30 04:11] LABS: #Basophils Less than 0.03 10x3/uL (0.0-0.2); #Eosinphils Less than 0.03 10x3/uL (0.0-0.7); %Eosinophils 0.2 % (0.0-10.0); %Lymphocytes 10.5 % (21.0-51.0); %Neutrophils 78.1 % (42.0-75.0); Hematocrit 33.1 % (42.0-52.0); Hemoglobin 10.5 g/dL (14.0-18.0); Mean Corpuscular HGB CONC 31.7 g/dL (32.0-36.0); Mean Corpuscular Hemoglobin 30.5 pg (27.0-31.0); Mean Corpuscular Volume 96.2 fL (78.0-98.0); Mean Platelet Volume 9.2 fL (7.4-10.4); Platelet Count 223 10x3/uL (130-400); RBC Distribution Width 15.1 % (11.5-14.5); Red Blood Cell (RBC) Count 3.44 mill/uL (4.70-6.10)
[2023-09-30 04:55] LABS: Globulin 2.6 g/dL (2.4-3.5)
[2023-09-30 05:00] LABS: ALT (SGPT) 32 U/L (8-55); AST (SGOT) 29 U/L (5-34); Albumin 3.6 g/dL (3.4-4.8); Alkaline Phosphatase 71 U/L (40-110); Anion Gap 14 mmol/L (10-20); BUN (Urea Nitrogen) 51 mg/dL (8.4-25.7); Bilirubin, Total 0.8 mg/dL (0.2-1.2); Calc. Creatinine Clearance 53 mL/min (70-130); Calcium 9.2 mg/dL (7.8-10.44); Carbon Dioxide 25 mmol/L (23-31); Chloride 100 mmol/L (98-107); Estimated GFR 37; Glucose 149 mg/dL (83-110); Magnesium 2.3 mg/dL (1.6-2.6); Potassium 4.3 mmol/L (3.5-5.1); Protein, Total 6.2 g/dL (5.8-8.1); Sodium 135 mmol/L (136-145)
[2023-09-30 05:02] VITALS: BMI 40.3
[2023-09-30] MEDS ORDERED: Insulin Glargine 30 UNITS/0.3 ML VIAL SC SCH ×2 (09:00)
[2023-09-30] MEDS: Insulin Glargine 30 UNITS/0.3 ML VIAL SC SCH (09:06)
[2023-09-30] MEDS: Bumetanide 1 MG TAB PO SCH (09:06)
[2023-09-30] MEDS: Milrinone Lactate/D5W 20 MG in Premix 1 BAG IV SCH (09:46)
[2023-09-30] MEDS: Carvedilol 3.125 MG TAB PO SCH ×2 (09:46→17:06)
[2023-10-01 05:22] LABS: Globulin 2.5 g/dL (2.4-3.5)
[2023-10-01 05:26] LABS: ALT (SGPT) 29 U/L (8-55); AST (SGOT) 24 U/L (5-34); Albumin 3.5 g/dL (3.4-4.8); Alkaline Phosphatase 70 U/L (40-110); Anion Gap 15 mmol/L (10-20); BUN (Urea Nitrogen) 51 mg/dL (8.4-25.7); Bilirubin, Total 0.8 mg/dL (0.2-1.2); Calc. Creatinine Clearance 55 mL/min (70-130); Calcium 9.3 mg/dL (7.8-10.44); Carbon Dioxide 28 mmol/L (23-31); Chloride 98 mmol/L (98-107); Estimated GFR 38; Glucose 222 mg/dL (83-110); Magnesium 2.2 mg/dL (1.6-2.6); Potassium 4.2 mmol/L (3.5-5.1); Sodium 137 mmol/L (136-145)
[2023-10-01] MEDS: Bumetanide 1 MG TAB PO SCH (09:22)
[2023-10-01] MEDS: Carvedilol 3.125 MG TAB PO SCH (09:36)
[2023-10-01] MEDS: Hydrochlorothiazide 25 MG TAB PO SCH (09:36)
[2023-10-01] MEDS: Carvedilol 6.25 MG TAB PO SCH (20:06)
[2023-10-01 20:23] LABS: Globulin 2.9 g/dL (2.4-3.5)
[2023-10-01 20:27] LABS: ALT (SGPT) 30 U/L (8-55); AST (SGOT) 26 U/L (5-34); Alkaline Phosphatase 81 U/L (40-110); Anion Gap 14 mmol/L (10-20); BUN (Urea Nitrogen) 54 mg/dL (8.4-25.7); Bilirubin, Total 0.9 mg/dL (0.2-1.2); Calc. Creatinine Clearance 50 mL/min (70-130); Calcium 9.7 mg/dL (7.8-10.44); Carbon Dioxide 32 mmol/L (23-31); Chloride 96 mmol/L (98-107); Estimated GFR 34; Glucose 124 mg/dL (83-110); Magnesium 2.3 mg/dL (1.6-2.6); Potassium 4.4 mmol/L (3.5-5.1); Protein, Total 6.9 g/dL (5.8-8.1); Sodium 138 mmol/L (136-145)
[2023-10-01 20:37] LABS: Phosphorus 1.3 mg/dL (2.3-4.7)
[2023-10-01] MEDS: Potassium Phosphate 15 MMOL in Sodium Chloride 0.9% 100 ML IVPB SCH (23:16)
[2023-10-02 06:02] LABS: #Basophils Less than 0.03 10x3/uL (0.0-0.2); %Eosinophils 2.2 % (0.0-10.0); %Lymphocytes 6.6 % (21.0-51.0); %Neutrophils 82.6 % (42.0-75.0); Hematocrit 35.2 % (42.0-52.0); Mean Corpuscular HGB CONC 31.3 g/dL (32.0-36.0); Mean Corpuscular Hemoglobin 30.1 pg (27.0-31.0); Mean Corpuscular Volume 96.4 fL (78.0-98.0); Mean Platelet Volume 9.6 fL (7.4-10.4); Platelet Count 285 10x3/uL (130-400); RBC Distribution Width 15.6 % (11.5-14.5); Red Blood Cell (RBC) Count 3.65 mill/uL (4.70-6.10)
[2023-10-02 06:24] LABS: Globulin 2.5 g/dL (2.4-3.5)
[2023-10-02 06:28] LABS: ALT (SGPT) 25 U/L (8-55); AST (SGOT) 25 U/L (5-34); Albumin 3.6 g/dL (3.4-4.8); Alkaline Phosphatase 73 U/L (40-110); Anion Gap 17 mmol/L (10-20); BUN (Urea Nitrogen) 49 mg/dL (8.4-25.7); Bilirubin, Total 0.9 mg/dL (0.2-1.2); Calc. Creatinine Clearance 59 mL/min (70-130); Calcium 9.6 mg/dL (7.8-10.44); Carbon Dioxide 28 mmol/L (23-31); Chloride 97 mmol/L (98-107); Estimated GFR 41; Glucose 100 mg/dL (83-110); Magnesium 2.1 mg/dL (1.6-2.6); Potassium 4.4 mmol/L (3.5-5.1); Protein, Total 6.1 g/dL (5.8-8.1); Sodium 138 mmol/L (136-145)
[2023-10-02 08:15] LABS: Phosphorus 2.1 mg/dL (2.3-4.7)
[2023-10-02] MEDS: Hydrocortisone Sod Succ/PF 100 mg/2 ml Vial IVP SCH (08:16)
[2023-10-02] MEDS: Hydrochlorothiazide 25 MG TAB PO SCH (08:17)
[2023-10-02] MEDS: Potassium Phosphate 15 MMOL in Sodium Chloride 0.9% 250 ML 250 ML IVPB SCH (09:59)
[2023-10-03] MEDS: Carvedilol 6.25 MG TAB PO SCH (09:07)
[2023-10-03] MEDS: Hydrocortisone Sod Succ/PF 100 mg/2 ml Vial IVP SCH (09:09)
[2023-10-03 11:38] LABS: Anion Gap 21 mmol/L (10-20); BUN (Urea Nitrogen) 50 mg/dL (8.4-25.7); Calc. Creatinine Clearance 59 mL/min (70-130); Calcium 10.1 mg/dL (7.8-10.44); Carbon Dioxide 26 mmol/L (23-31); Chloride 96 mmol/L (98-107); Estimated GFR 43; Glucose 114 mg/dL (83-110); Potassium 3.8 mmol/L (3.5-5.1); Sodium 139 mmol/L (136-145)
[2023-10-03 16:22] LABS: Phosphorus 3.1 mg/dL (2.3-4.7)
[2023-10-04 04:31] LABS: #Basophils Less than 0.03 10x3/uL (0.0-0.2); %Basophils 0.2 % (0.0-1.0); %Eosinophils 2.3 % (0.0-10.0); %Lymphocytes 11.1 % (21.0-51.0); %Monocytes 12.4 % (0.0-10.0); %Neutrophils 73.4 % (42.0-75.0); Hematocrit 31.5 % (42.0-52.0); Hemoglobin 9.8 g/dL (14.0-18.0); Mean Corpuscular HGB CONC 31.1 g/dL (32.0-36.0); Mean Corpuscular Hemoglobin 30.7 pg (27.0-31.0); Mean Corpuscular Volume 98.7 fL (78.0-98.0); Mean Platelet Volume 9.6 fL (7.4-10.4); Platelet Count 253 10x3/uL (130-400); RBC Distribution Width 15.8 % (11.5-14.5); Red Blood Cell (RBC) Count 3.19 mill/uL (4.70-6.10)
[2023-10-04 05:00] LABS: Anion Gap 18 mmol/L (10-20); BUN (Urea Nitrogen) 53 mg/dL (8.4-25.7); Calc. Creatinine Clearance 54 mL/min (70-130); Calcium 9.8 mg/dL (7.8-10.44); Carbon Dioxide 26 mmol/L (23-31); Chloride 97 mmol/L (98-107); Estimated GFR 39; Glucose 175 mg/dL (83-110); Magnesium 1.9 mg/dL (1.6-2.6); Phosphorus 3.5 mg/dL (2.3-4.7); Potassium 3.9 mmol/L (3.5-5.1); Sodium 137 mmol/L (136-145)
[2023-10-04] MEDS: Milrinone Lactate/D5W 20 MG in Premix 1 BAG IV SCH (09:01)
[2023-10-04] MEDS: Magnesium 2 GM/50 ML(in water) 2 GM in Premix 1 BAG IVPB SCH (09:01)
[2023-10-04] MEDS: Sacubitril 24MG/Valsartan 26 MG TAB PO SCH (09:03)
[2023-10-04] MEDS: Amiodarone 200 MG TAB PO SCH (09:05)
[2023-10-04] MEDS: Torsemide 10 MG TAB PO SCH (09:08)
[2023-10-05 08:20] LABS: Anion Gap 17 mmol/L (10-20); BUN (Urea Nitrogen) 53 mg/dL (8.4-25.7); Calc. Creatinine Clearance 46 mL/min (70-130); Calcium 10.2 mg/dL (7.8-10.44); Carbon Dioxide 28 mmol/L (23-31); Chloride 95 mmol/L (98-107); Estimated GFR 32; Glucose 123 mg/dL (83-110); Magnesium 2.2 mg/dL (1.6-2.6); Potassium 4.2 mmol/L (3.5-5.1); Sodium 136 mmol/L (136-145)
[2023-10-05 08:20] LABS: Phosphorus 3.6 mg/dL (2.3-4.7)
[2023-10-05 08:48] LABS: #Basophils Less than 0.03 10x3/uL (0.0-0.2); %Basophils 0.2 % (0.0-1.0); %Eosinophils 2.8 % (0.0-10.0); %Lymphocytes 11.1 % (21.0-51.0); %Monocytes 13.4 % (0.0-10.0); %Neutrophils 72.2 % (42.0-75.0); Hemoglobin 10.4 g/dL (14.0-18.0); Mean Corpuscular HGB CONC 31.5 g/dL (32.0-36.0); Mean Corpuscular Hemoglobin 30.9 pg (27.0-31.0); Mean Corpuscular Volume 97.9 fL (78.0-98.0); Mean Platelet Volume 10.1 fL (7.4-10.4); Platelet Count 271 10x3/uL (130-400); RBC Distribution Width 16.3 % (11.5-14.5); Red Blood Cell (RBC) Count 3.37 mill/uL (4.70-6.10)
[2023-10-05] MEDS: predniSONE 20 MG TAB PO SCH (08:51)
[2023-10-05] MEDS: Sacubitril 24MG/Valsartan 26 MG TAB PO SCH (08:51)
[2023-10-05 13:48] VITALS: BMI 39.0
[2023-10-06 06:49] LABS: #Basophils Less than 0.03 10x3/uL (0.0-0.2); #Eosinphils Less than 0.03 10x3/uL (0.0-0.7); %Eosinophils 0.4 % (0.0-10.0); %Lymphocytes 10.1 % (21.0-51.0); %Monocytes 9.9 % (0.0-10.0); %Neutrophils 79.2 % (42.0-75.0); Hematocrit 31.2 % (42.0-52.0); Hemoglobin 9.7 g/dL (14.0-18.0); Mean Corpuscular HGB CONC 31.1 g/dL (32.0-36.0); Mean Corpuscular Hemoglobin 30.2 pg (27.0-31.0); Mean Corpuscular Volume 97.2 fL (78.0-98.0); Mean Platelet Volume 9.9 fL (7.4-10.4); Platelet Count 262 10x3/uL (130-400); RBC Distribution Width 15.9 % (11.5-14.5); Red Blood Cell (RBC) Count 3.21 mill/uL (4.70-6.10)
[2023-10-06 07:24] LABS: Phosphorus 3.8 mg/dL (2.3-4.7)
[2023-10-06 07:26] LABS: Anion Gap 17 mmol/L (10-20); BUN (Urea Nitrogen) 54 mg/dL (8.4-25.7); Calc. Creatinine Clearance 50 mL/min (70-130); Calcium 10.3 mg/dL (7.8-10.44); Carbon Dioxide 26 mmol/L (23-31); Chloride 96 mmol/L (98-107); Estimated GFR 35; Glucose 206 mg/dL (83-110); Magnesium 2.1 mg/dL (1.6-2.6); Potassium 4.1 mmol/L (3.5-5.1); Sodium 135 mmol/L (136-145)
[2023-10-06] MEDS: hydrALAZINE 10 MG TAB PO SCH (09:11)
[2023-10-06] MEDS: Isosorbide Dinitrate 5 MG TAB PO SCH (09:16)
[2023-10-07 07:17] LABS: #Basophils Less than 0.03 10x3/uL (0.0-0.2); %Basophils 0.2 % (0.0-1.0); %Eosinophils 0.6 % (0.0-10.0); %Lymphocytes 12.8 % (21.0-51.0); %Monocytes 9.6 % (0.0-10.0); %Neutrophils 76.4 % (42.0-75.0); Hematocrit 33.1 % (42.0-52.0); Hemoglobin 10.4 g/dL (14.0-18.0); Mean Corpuscular HGB CONC 31.4 g/dL (32.0-36.0); Mean Corpuscular Hemoglobin 30.5 pg (27.0-31.0); Mean Corpuscular Volume 97.1 fL (78.0-98.0); Mean Platelet Volume 9.6 fL (7.4-10.4); Platelet Count 265 10x3/uL (130-400); RBC Distribution Width 16.1 % (11.5-14.5); Red Blood Cell (RBC) Count 3.41 mill/uL (4.70-6.10)
[2023-10-07 07:38] LABS: Anion Gap 17 mmol/L (10-20); BUN (Urea Nitrogen) 55 mg/dL (8.4-25.7); Calc. Creatinine Clearance 52 mL/min (70-130); Carbon Dioxide 29 mmol/L (23-31); Chloride 98 mmol/L (98-107); Estimated GFR 38; Potassium 4.2 mmol/L (3.5-5.1); Sodium 140 mmol/L (136-145)
[2023-10-07 07:49] LABS: Calcium 10.4 mg/dL (7.8-10.44); Glucose 156 mg/dL (83-110); Magnesium 2.2 mg/dL (1.6-2.6)
[2023-10-07 08:28] LABS: Globulin 2.9 g/dL (2.4-3.5)
[2023-10-07 08:33] LABS: ALT (SGPT) 18 U/L (8-55); AST (SGOT) 21 U/L (5-34); Albumin 3.4 g/dL (3.4-4.8); Alkaline Phosphatase 71 U/L (40-110); Bilirubin, Total 0.6 mg/dL (0.2-1.2); Protein, Total 6.3 g/dL (5.8-8.1)
[2023-10-07 12:12] VITALS: TEMP 98.6
[2023-10-07 14:42] VITALS: BP 108/64
[2023-10-12] MEDS ORDERED: predniSONE 5 MG TAB PO SCH (08:00)
[2023-10-19] MEDS ORDERED: predniSONE 5 MG TAB PO SCH (08:00)
[2023-10-26] MEDS ORDERED: predniSONE 5 MG TAB PO SCH (08:00)
== END 2023-10-07 15:28 | DRG 469 ==
LOC: SDC 05:49 → SURG A 10:33 → CCU 09-22 21:42
PROVIDERS: ADMIT Orthopaedic Surgery; ATTEND Family Medicine
PROC: 0SRD0J9 Replacement of Left Knee Joint with Synthetic Substitute, Cemented, Open Approach (ICD-10-PCS; principal; 2023-09-20)
PROC: 5A09457 Assistance with Respiratory Ventilation, 24-96 Consecutive Hours, Continuous Positive Airway Pressure (ICD-10-PCS; 2023-09-20)
PROC: 30233J1 Transfusion of Nonautologous Serum Albumin into Peripheral Vein, Percutaneous Approach (ICD-10-PCS; 2023-09-22)
PROC: 3E033XZ Introduction of Vasopressor into Peripheral Vein, Percutaneous Approach (ICD-10-PCS; 2023-09-22)
DX: M17.12 Unilateral primary osteoarthritis, left knee (principal); G93.41 Metabolic encephalopathy; J96.01 Acute respiratory failure with hypoxia; R57.0 Cardiogenic shock; I50.33 Acute on chronic diastolic (congestive) heart failure; Z94.4 Liver transplant status; I48.20 Chronic atrial fibrillation, unspecified; I42.8 Other cardiomyopathies; N17.9 Acute kidney failure, unspecified; E87.1 Hypo-osmolality and hyponatremia; E87.20 Acidosis, unspecified; I13.0 Hypertensive heart and chronic kidney disease with heart failure and stage 1 through stage 4 chronic kidney disease, or unspecified chronic kidney disease; I47.20 Ventricular tachycardia, unspecified; I44.2 Atrioventricular block, complete; E27.2 Addisonian crisis; Z95.810 Presence of automatic (implantable) cardiac defibrillator; M19.90 Unspecified osteoarthritis, unspecified site; E78.5 Hyperlipidemia, unspecified; Z98.890 Other specified postprocedural states; Z79.899 Other long term (current) drug therapy; Z79.01 Long term (current) use of anticoagulants; Z82.49 Family history of ischemic heart disease and other diseases of the circulatory system; N18.30 Chronic kidney disease, stage 3 unspecified; E11.22 Type 2 diabetes mellitus with diabetic chronic kidney disease; Z79.82 Long term (current) use of aspirin; I95.9 Hypotension, unspecified; Z79.4 Long term (current) use of insulin; N40.0 Benign prostatic hyperplasia without lower urinary tract symptoms; G47.33 Obstructive sleep apnea (adult) (pediatric); E86.1 Hypovolemia; E87.6 Hypokalemia
CPT/HCPCS: 36415; 36416; 71045; 71250; 76705; 80048; 80053; 81001; 82040; 82140; 82533; 82570; 82805; 83605; 83735; 83880; 83930; 83935; 84100; 84145; 84156; 84300; 85025; 85027; 86141; 86850; 86900; 86901; 87449; 93005; 93010; 93306; A4217; A4306; C1776; J0282; J0613; J0665; J1250; J1720; J1815; J1940; J2250; J2260; J2405; J2704; J2795; J3010; J3370; J3475; J3480; J3490; J7030; J7050; J7070; J7512; J7517; J7520; P9047

== ENCOUNTER 2023-11-01 11:38 | Inpatient (IN) | payer BC, MEDICARE ==
[2023-11-01 12:28] LABS: #Basophils Less than 0.03 10x3/uL (0.0-0.2); %Basophils 0.5 % (0.0-1.0); %Eosinophils 7.5 % (0.0-10.0); %Lymphocytes 13.8 % (21.0-51.0); %Monocytes 18.8 % (0.0-10.0); %Neutrophils 58.6 % (42.0-75.0); Hematocrit 33.9 % (42.0-52.0); Hemoglobin 11.3 g/dL (14.0-18.0); Mean Corpuscular HGB CONC 33.3 g/dL (32.0-36.0); Mean Corpuscular Volume 93.1 fL (78.0-98.0); Mean Platelet Volume 10.2 fL (7.4-10.4); Platelet Count 200 10x3/uL (130-400); Red Blood Cell (RBC) Count 3.64 mill/uL (4.70-6.10)
[2023-11-01] MEDS ORDERED: Cefepime 2 GM VIAL ONE (12:31)
[2023-11-01] MEDS ORDERED: Sodium Chloride 0.9% 100 ML ONE (12:31)
[2023-11-01] MEDS ORDERED: Vancomycin 1 GM/200 ML (FROZEN) BAG ONE (12:31)
[2023-11-01 12:49] LABS: ALT (SGPT) 34 U/L (8-55); AST (SGOT) 39 U/L (5-34); Alkaline Phosphatase 113 U/L (40-110); Anion Gap 18 mmol/L (10-20); BUN (Urea Nitrogen) 56 mg/dL (8.4-25.7); Bilirubin, Total 0.7 mg/dL (0.2-1.2); Calc. Creatinine Clearance 0 mL/min (70-130); Calcium 9.6 mg/dL (7.8-10.44); Carbon Dioxide 23 mmol/L (23-31); Chloride 92 mmol/L (98-107); Estimated GFR 36; Globulin 3.7 g/dL (2.4-3.5); Glucose 170 mg/dL (83-110); Potassium 4.6 mmol/L (3.5-5.1); Protein, Total 6.7 g/dL (5.8-8.1); Sodium 128 mmol/L (136-145)
[2023-11-01 12:51] LABS: Troponin I 0.062 ng/mL (< 0.028)
[2023-11-01] MEDS ORDERED: Ondansetron ODT 4 MG TAB PO PRN (18:00)
[2023-11-01] MEDS ORDERED: Senokot S 8.6-50 MG TAB PO PRN (18:00)
[2023-11-01] MEDS ORDERED: Bisacodyl 5 MG TAB PO PRN (18:00)
[2023-11-01] MEDS ORDERED: Acetaminophen 650 MG Suppository PR PRN (18:00)
[2023-11-01] MEDS ORDERED: Dextrose 5% in Water 1,000 ML IV PRN (18:02)
[2023-11-01] MEDS ORDERED: Dextrose 50% Abboject 50 ML SYRINGE SLOW IVP PRN (18:02)
[2023-11-01] MEDS ORDERED: Insulin Regular 300 UNITS/3 ML VIAL SC PRN ×2 (18:02)
[2023-11-01] MEDS ORDERED: Glucagon 1 MG/ML KIT IM PRN (18:02)
[2023-11-01] MEDS: Vancomycin (BATCH) 1.5 GM in Premix 1 BAG IVPB SCH (20:00)
[2023-11-01] MEDS: Apixaban 5 MG TAB PO SCH (20:00)
[2023-11-01] MEDS: Sacubitril 49 MG/Valsartan 51 MG TABLET PO SCH (20:00)
[2023-11-01] MEDS ORDERED: Vancomycin 1 GM in Sodium Chloride 0.9% 250 ML 250 ML IVPB SCH (21:00)
[2023-11-01 21:08] LABS: Troponin I 0.061 ng/mL (< 0.028)
[2023-11-01] MEDS: Calcium Carbonate 600 MG + Vit D TAB PO SCH (21:42)
[2023-11-01] MEDS: guaiFENesin ER 600 MG TAB PO SCH (21:42)
[2023-11-01] MEDS: Rosuvastatin 10 MG TAB PO SCH (21:42)
[2023-11-01] MEDS: Mycophenolate 250 MG CAP PO SCH (21:43)
[2023-11-01] MEDS: Carvedilol 6.25 MG TAB PO SCH (21:45)
[2023-11-02] MEDS: Cefepime 1 GM in Sodium Chloride 0.9% 100 ML IVPB SCH (00:54)
[2023-11-02 03:34] LABS: Legionella Urinary Ag Negative (Negative); Strep pneumo Urine Ag NEGATIVE (NEGATIVE)
[2023-11-02 05:05] LABS: Hematocrit 30.5 % (42.0-52.0); Mean Corpuscular HGB CONC 32.8 g/dL (32.0-36.0); Mean Corpuscular Hemoglobin 30.1 pg (27.0-31.0); Mean Corpuscular Volume 91.9 fL (78.0-98.0); Mean Platelet Volume 10.1 fL (7.4-10.4); Platelet Count 191 10x3/uL (130-400); RBC Distribution Width 16.1 % (11.5-14.5); Red Blood Cell (RBC) Count 3.32 mill/uL (4.70-6.10)
[2023-11-02 05:19] LABS: Anion Gap 16 mmol/L (10-20); BUN (Urea Nitrogen) 51 mg/dL (8.4-25.7); Calc. Creatinine Clearance 48 mL/min (70-130); Calcium 9.2 mg/dL (7.8-10.44); Carbon Dioxide 22 mmol/L (23-31); Chloride 95 mmol/L (98-107); Estimated GFR 38; Glucose 135 mg/dL (83-110); Potassium 4.3 mmol/L (3.5-5.1); Sodium 129 mmol/L (136-145)
[2023-11-02 05:31] LABS: Anisocytosis MODERATE=16-30 cells HPF (0-5); Band 1 % (5-11); Burr Cells SLIGHT = 2-5 cells HPF (0-1); Eosinophils 5 % (0-10); Lymphocytes 14 % (21-51); Macrocytosis SLIGHT = 6-15 cells HPF (0-5); Monocytes 9 % (0-10); Neutrophil 69 % (42-75); Platelet Adequacy Comment Platelets Normal; Poikilocytosis MODERATE=16-30 cells HPF (0-5); Polychromasia MODERATE = 3-4 cells HPF (0-2)
[2023-11-02 05:34] LABS: Vancomycin, Random 26.3 ug/mL (See Comment)
[2023-11-02 09:25] LABS: Troponin I 0.071 ng/mL (< 0.028)
[2023-11-02] MEDS: Bumetanide 1 MG TAB PO SCH (10:33)
[2023-11-02] MEDS: Vancomycin HCl 500 MG in Sodium Chloride 0.9% 100 ML IVPB SCH (10:34)
[2023-11-02] MEDS: Ferrous Gluconate 324 MG TAB PO SCH (10:36)
[2023-11-02] MEDS: Magnesium Oxide 250 MG TAB PO SCH (10:37)
[2023-11-02] MEDS: Amiodarone 200 MG TAB PO SCH (10:38)
[2023-11-02] MEDS: Empagliflozin 25 MG TAB PO SCH (10:39)
[2023-11-02] MEDS: Calcitriol 0.25 MCG CAP PO SCH (10:39)
[2023-11-02] MEDS: Azithromycin 500 MG in Sodium Chloride 0.9% 250 ML 250 ML IVPB SCH (12:25)
[2023-11-02] MEDS: Ursodiol 300 MG CAP PO SCH (12:25)
[2023-11-02] MEDS: Ipratropium/Albuterol 3 ML NEB NEB PRN (14:54)
[2023-11-02] MEDS: DOBUTamine 500 mg/250 ml 250 ML IVPB SCH (16:39)
[2023-11-02] MEDS: Insulin Regular, Human 100 UNIT/ML 10 ML VIAL SC PRN (17:16)
[2023-11-02 22:03] LABS: Campy jejuni + coli by PCR Negative (Negative); STEC Shiga Toxin 1+2 Negative (Negative); Salmonella spp. by PCR Negative (Negative); Shigella spp + EIEC by PCR Negative (Negative)
[2023-11-03 04:39] LABS: Hematocrit 29.4 % (42.0-52.0); Hemoglobin 9.5 g/dL (14.0-18.0); Mean Corpuscular HGB CONC 32.3 g/dL (32.0-36.0); Mean Corpuscular Hemoglobin 29.9 pg (27.0-31.0); Mean Corpuscular Volume 92.5 fL (78.0-98.0); Mean Platelet Volume 10.3 fL (7.4-10.4); Platelet Count 230 10x3/uL (130-400); RBC Distribution Width 16.1 % (11.5-14.5); Red Blood Cell (RBC) Count 3.18 mill/uL (4.70-6.10)
[2023-11-03 05:08] LABS: Burr Cells SLIGHT = 2-5 cells HPF (0-1); Eosinophils 7 % (0-10); Lymphocytes 7 % (21-51); Monocytes 13 % (0-10); Neutrophil 73 % (42-75); Ovalocytes SLIGHT = 2-5 cells HPF (0-1); Platelet Adequacy Comment Platelets Normal; Polychromasia SLIGHT = 2-3 cells HPF (0-2); Vancomycin, Random 30.6 ug/mL (See Comment)
[2023-11-03 05:09] LABS: Anion Gap 16 mmol/L (10-20); BUN (Urea Nitrogen) 51 mg/dL (8.4-25.7); Calc. Creatinine Clearance 50 mL/min (70-130); Calcium 9.1 mg/dL (7.8-10.44); Carbon Dioxide 21 mmol/L (23-31); Chloride 99 mmol/L (98-107); Estimated GFR 40; Glucose 98 mg/dL (83-110); Potassium 4.1 mmol/L (3.5-5.1); Sodium 132 mmol/L (136-145)
[2023-11-03 09:24] LABS: Magnesium 1.9 mg/dL (1.6-2.6)
[2023-11-03] MEDS: Loperamide HCl 2 MG CAP PO SCH (09:34)
[2023-11-03] MEDS: Vancomycin HCl 750 MG in Sodium Chloride 0.9% 250 ML 250 ML IVPB SCH (11:47)
[2023-11-03 16:48] LABS: SARS-CoV-2 E Target Negative; SARS-CoV-2 N2 Target Negative; SARS-CoV-2 NAA Rapid Test Not Detected (NotDetected); SARS-CoV-2 RdRP gene Negative
[2023-11-04 05:34] LABS: Hematocrit 29.2 % (42.0-52.0); Hemoglobin 9.5 g/dL (14.0-18.0); Mean Corpuscular HGB CONC 32.5 g/dL (32.0-36.0); Mean Corpuscular Hemoglobin 30.1 pg (27.0-31.0); Mean Corpuscular Volume 92.4 fL (78.0-98.0); Mean Platelet Volume 9.2 fL (7.4-10.4); Platelet Count 228 10x3/uL (130-400); RBC Distribution Width 15.9 % (11.5-14.5); Red Blood Cell (RBC) Count 3.16 mill/uL (4.70-6.10)
[2023-11-04 05:49] LABS: Anion Gap 15 mmol/L (10-20); BUN (Urea Nitrogen) 41 mg/dL (8.4-25.7); Calc. Creatinine Clearance 55 mL/min (70-130); Calcium 8.7 mg/dL (7.8-10.44); Carbon Dioxide 20 mmol/L (23-31); Chloride 100 mmol/L (98-107); Estimated GFR 44; Glucose 106 mg/dL (83-110); Magnesium 1.9 mg/dL (1.6-2.6); Potassium 4.2 mmol/L (3.5-5.1); Sodium 131 mmol/L (136-145)
[2023-11-04 07:42] LABS: Anisocytosis SLIGHT = 6-15 cells HPF (0-5); Band 4 % (5-11); Elliptocytes SLIGHT = 2-5 cells HPF (0-1); Eosinophils 6 % (0-10); Large Platelets 4.9 % (0-5); Lymphocytes 11 % (21-51); Monocytes 17 % (0-10); Neutrophil 62 % (42-75); Platelet Adequacy Comment Platelets Normal
[2023-11-04] MEDS: Acetaminophen 325 MG TAB PO PRN (09:08)
[2023-11-04] MEDS: Phentolamine Mesylate 5 MG VIAL SC SCH (21:51)
[2023-11-04] MEDS: Phentolamine Mesylate 5 MG in Sodium Chloride 0.9% 10 ML SC SCH (22:40)
[2023-11-05 06:00] LABS: Band 19 % (5-11); Eosinophils 9 % (0-10); Hypochromia SLIGHT = 6-15 cells HPF (0-5); Large Platelets 2.8 % (0-5); Lymphocytes 6 % (21-51); Monocytes 17 % (0-10); Neutrophil 49 % (42-75); Platelet Adequacy Comment Platelets Normal; Polychromasia MODERATE = 3-4 cells HPF (0-2)
[2023-11-05 06:09] LABS: Anion Gap 16 mmol/L (10-20); BUN (Urea Nitrogen) 38 mg/dL (8.4-25.7); Calc. Creatinine Clearance 54 mL/min (70-130); Calcium 8.8 mg/dL (7.8-10.44); Carbon Dioxide 20 mmol/L (23-31); Chloride 99 mmol/L (98-107); Estimated GFR 41; Glucose 123 mg/dL (83-110); Magnesium 1.9 mg/dL (1.6-2.6); Potassium 4.5 mmol/L (3.5-5.1); Sodium 130 mmol/L (136-145)
[2023-11-05 06:14] LABS: #Basophils Less than 0.03 10x3/uL (0.0-0.2); %Basophils 0.3 % (0.0-1.0); %Eosinophils 8.8 % (0.0-10.0); %Lymphocytes 12.7 % (21.0-51.0); %Monocytes 20.4 % (0.0-10.0); %Neutrophils 56.5 % (42.0-75.0); Hematocrit 30.9 % (42.0-52.0); Hemoglobin 9.8 g/dL (14.0-18.0); Mean Corpuscular HGB CONC 31.7 g/dL (32.0-36.0); Mean Corpuscular Hemoglobin 30.1 pg (27.0-31.0); Mean Corpuscular Volume 94.8 fL (78.0-98.0); Mean Platelet Volume 10.1 fL (7.4-10.4); Platelet Count 260 10x3/uL (130-400); Red Blood Cell (RBC) Count 3.26 mill/uL (4.70-6.10)
[2023-11-05] MEDS: Cosyntropin 250 MCG VIAL SLOW IVP SCH (09:59)
[2023-11-05 10:17] LABS: Fungitell Beta (1,3) D-Glucan Negative (.)
[2023-11-05] MEDS: Insulin Regular, Human 100 UNIT/ML 10 ML VIAL SC PRN (21:22)
[2023-11-05 22:13] LABS: CMV DNA-PCR Test Negative (Negative)
[2023-11-06 05:13] LABS: #Basophils Less than 0.03 10x3/uL (0.0-0.2); %Basophils 0.3 % (0.0-1.0); %Lymphocytes 12.6 % (21.0-51.0); %Monocytes 19.7 % (0.0-10.0); %Neutrophils 65.4 % (42.0-75.0); Hematocrit 29.5 % (42.0-52.0); Hemoglobin 9.4 g/dL (14.0-18.0); Mean Corpuscular HGB CONC 31.9 g/dL (32.0-36.0); Mean Corpuscular Hemoglobin 29.8 pg (27.0-31.0); Mean Corpuscular Volume 93.7 fL (78.0-98.0); Mean Platelet Volume 9.9 fL (7.4-10.4); Platelet Count 282 10x3/uL (130-400); RBC Distribution Width 15.9 % (11.5-14.5); Red Blood Cell (RBC) Count 3.15 mill/uL (4.70-6.10)
[2023-11-06 05:34] LABS: Anion Gap 15 mmol/L (10-20); BUN (Urea Nitrogen) 35 mg/dL (8.4-25.7); Calc. Creatinine Clearance 54 mL/min (70-130); Calcium 8.9 mg/dL (7.8-10.44); Carbon Dioxide 20 mmol/L (23-31); Chloride 100 mmol/L (98-107); Estimated GFR 42; Glucose 148 mg/dL (83-110); Magnesium 2.1 mg/dL (1.6-2.6); Potassium 4.5 mmol/L (3.5-5.1); Sodium 130 mmol/L (136-145)
[2023-11-06] MEDS: Furosemide 40 MG (4 mL) VIAL SLOW IVP SCH (10:13)
[2023-11-06] MEDS: DOBUTamine 500 mg/250 ml 250 ML IVPB SCH (12:17)
[2023-11-06 16:36] LABS: A. flavus Negative (Neg:<1:1); A. fumigatus Negative (Neg:<1:1); A. niger Negative (Neg:<1:1); Blastomyces AB Negative (Neg:<1:1)
[2023-11-07 07:25] LABS: Anion Gap 14 mmol/L (10-20); BUN (Urea Nitrogen) 36 mg/dL (8.4-25.7); Calc. Creatinine Clearance 59 mL/min (70-130); Calcium 9.1 mg/dL (7.8-10.44); Carbon Dioxide 22 mmol/L (23-31); Chloride 99 mmol/L (98-107); Estimated GFR 45; Glucose 135 mg/dL (83-110); Magnesium 2.2 mg/dL (1.6-2.6); Potassium 4.1 mmol/L (3.5-5.1); Sodium 131 mmol/L (136-145)
[2023-11-07 08:16] LABS: Hematocrit 30.6 % (42.0-52.0); Hemoglobin 9.7 g/dL (14.0-18.0); Mean Corpuscular HGB CONC 31.7 g/dL (32.0-36.0); Mean Corpuscular Hemoglobin 30.2 pg (27.0-31.0); Mean Corpuscular Volume 95.3 fL (78.0-98.0); Mean Platelet Volume 10.1 fL (7.4-10.4); Platelet Count 316 10x3/uL (130-400); Red Blood Cell (RBC) Count 3.21 mill/uL (4.70-6.10)
[2023-11-07] MEDS: Bumetanide 1 MG TAB PO SCH (08:35)
[2023-11-07] MEDS: Potassium Chloride 10 MEQ TAB PO SCH (08:36)
[2023-11-07] MEDS: DOBUTamine 500 mg/250 ml 250 ML IVPB SCH (08:55)
[2023-11-07 08:59] LABS: Anisocytosis SLIGHT = 6-15 cells HPF (0-5); Band 2 % (5-11); Burr Cells SLIGHT = 2-5 cells HPF (0-1); Elliptocytes SLIGHT = 2-5 cells HPF (0-1); Eosinophils 9 % (0-10); Lymphocytes 7 % (21-51); Macrocytosis SLIGHT = 6-15 cells HPF (0-5); Monocytes 15 % (0-10); Neutrophil 68 % (42-75); Platelet Adequacy Comment Platelets Decreased; Polychromasia SLIGHT = 2-3 cells HPF (0-2); Smudge Cells 6.8 %
[2023-11-08 06:12] LABS: Hematocrit 30.3 % (42.0-52.0); Hemoglobin 9.6 g/dL (14.0-18.0); Mean Corpuscular HGB CONC 31.7 g/dL (32.0-36.0); Mean Corpuscular Hemoglobin 29.7 pg (27.0-31.0); Mean Corpuscular Volume 93.8 fL (78.0-98.0); Mean Platelet Volume 10.1 fL (7.4-10.4); Platelet Count 332 10x3/uL (130-400); RBC Distribution Width 15.9 % (11.5-14.5); Red Blood Cell (RBC) Count 3.23 mill/uL (4.70-6.10)
[2023-11-08 06:24] LABS: Anion Gap 14 mmol/L (10-20); BUN (Urea Nitrogen) 39 mg/dL (8.4-25.7); Calc. Creatinine Clearance 56 mL/min (70-130); Calcium 8.7 mg/dL (7.8-10.44); Carbon Dioxide 21 mmol/L (23-31); Chloride 100 mmol/L (98-107); Estimated GFR 43; Glucose 127 mg/dL (83-110); Magnesium 2.1 mg/dL (1.6-2.6); Potassium 4.1 mmol/L (3.5-5.1); Sodium 131 mmol/L (136-145)
[2023-11-08 06:46] LABS: Anisocytosis MODERATE=16-30 cells HPF (0-5); Band 3 % (5-11); Burr Cells SLIGHT = 2-5 cells HPF (0-1); Eosinophils 5 % (0-10); Lymphocytes 13 % (21-51); Macrocytosis SLIGHT = 6-15 cells HPF (0-5); Monocytes 20 % (0-10); Neutrophil 58 % (42-75); Ovalocytes MODERATE= 6-15 cells HPF (0-1); Platelet Adequacy Comment Platelets Normal; Poikilocytosis SLIGHT = 6-15 cells HPF (0-5); Polychromasia MODERATE = 3-4 cells HPF (0-2); Smudge Cells 7.9 %
[2023-11-08] MEDS: Bumetanide 1 MG TAB PO SCH (09:13)
[2023-11-08] MEDS: LevoFLOXacin 750 MG TAB PO SCH (09:34)
[2023-11-08 22:41] LABS: L.pneumophilia Abs Non Reactive (Non Reactive)
[2023-11-09 06:08] LABS: #Basophils 0.05 10x3/uL (0.0-0.2); %Basophils 1.1 % (0.0-1.0); %Eosinophils 6.5 % (0.0-10.0); %Lymphocytes 12.4 % (21.0-51.0); %Monocytes 19.4 % (0.0-10.0); %Neutrophils 57.9 % (42.0-75.0); Hematocrit 32.2 % (42.0-52.0); Hemoglobin 10.3 g/dL (14.0-18.0); Mean Corpuscular Hemoglobin 29.5 pg (27.0-31.0); Mean Corpuscular Volume 92.3 fL (78.0-98.0); Mean Platelet Volume 9.8 fL (7.4-10.4); Platelet Count 324 10x3/uL (130-400); Red Blood Cell (RBC) Count 3.49 mill/uL (4.70-6.10)
[2023-11-09 06:33] LABS: Anion Gap 16 mmol/L (10-20); BUN (Urea Nitrogen) 40 mg/dL (8.4-25.7); Calc. Creatinine Clearance 50 mL/min (70-130); Calcium 8.9 mg/dL (7.8-10.44); Carbon Dioxide 20 mmol/L (23-31); Chloride 97 mmol/L (98-107); Estimated GFR 37; Glucose 140 mg/dL (83-110); Magnesium 2.1 mg/dL (1.6-2.6); Potassium 4.5 mmol/L (3.5-5.1); Sodium 128 mmol/L (136-145)
[2023-11-09] MEDS ORDERED: Milrinone 20 MG in Sodium Chloride 0.9% 100 ML IVPB SCH (08:45)
[2023-11-09] MEDS ORDERED: Milrinone Lactate/D5W 20 MG in Premix 1 BAG IVPB SCH (08:45)
[2023-11-09] MEDS ORDERED: Sodium Bicarbonate 2.5 MEQ/5 ML SDV ONE (09:55)
[2023-11-09] MEDS ORDERED: Lidocaine 1% PF 5 ML VIAL ONE (09:56)
[2023-11-09] MEDS ORDERED: EPINEPHrine 1 MG/10 ML Abboject SYRINGE ONE (10:23)
[2023-11-09] MEDS ORDERED: Atropine Sulfate 1 mg/10 ml Syringe ONE (10:23)
[2023-11-09] MEDS ORDERED: Etomidate 40 MG (20 mL) VIAL ONE (10:23)
[2023-11-09] MEDS: KETAMINE HCL 10 MG/ML SLOW IVP SCH (10:48)
[2023-11-09] MEDS ORDERED: NOREPINEPHRINE 8 MG/250 ML-D5W 250 ML IVPB SCH (11:00)
[2023-11-09] MEDS ORDERED: Morphine 2 MG/ML VIAL SLOW IVP PRN (11:00)
[2023-11-09] MEDS ORDERED: Lorazepam 2 MG/ML VIAL SLOW IVP PRN (11:00)
[2023-11-09] MEDS ORDERED: Propofol BOLUS 1,000 MG/100 ML VIAL IV PRN (11:00)
[2023-11-09] MEDS ORDERED: Fentanyl BOLUS 250 ML IVPB PRN (11:00)
[2023-11-09 11:38] LABS: Actual Bicarbonate (HCO3a) 18.2 mEq/L (22-28); Base Excess (BEa) -7.2 mEq/L (-2.0 to +3.0); CO2 Tension 36.2 mmHg (35.0-45.0); Calcium, Ionized (arterial) 1.13 mmol/L (1.12-1.30); Carboxyhemoglobin (COHb) 0.7 gm% (0.0-3.0); Hematocrit-ABG 33 % (42.0-52.0); Hemoglobin (Hb) 11.3 g/dL (14.0-18.0); O2 Tension (PaO2), arterial 149.9 mmHg (> 70.0); Potassium - ABG Lab 4.87 mmol/L (3.70-5.30); Puncture Site Arterial Line; pH, Arterial 7.319 (7.35-7.45)
[2023-11-09 12:05] LABS: #Basophils 0.05 10x3/uL (0.0-0.2); %Basophils 0.7 % (0.0-1.0); %Eosinophils 5.5 % (0.0-10.0); %Lymphocytes 11.1 % (21.0-51.0); %Monocytes 15.8 % (0.0-10.0); %Neutrophils 61.1 % (42.0-75.0); Hematocrit 32.5 % (42.0-52.0); Hemoglobin 10.1 g/dL (14.0-18.0); Mean Corpuscular HGB CONC 31.1 g/dL (32.0-36.0); Mean Corpuscular Hemoglobin 30.4 pg (27.0-31.0); Mean Corpuscular Volume 97.9 fL (78.0-98.0); Mean Platelet Volume 10.1 fL (7.4-10.4); Platelet Count 399 10x3/uL (130-400); RBC Distribution Width 16.3 % (11.5-14.5); Red Blood Cell (RBC) Count 3.32 mill/uL (4.70-6.10)
[2023-11-09 12:14] LABS: ALT (SGPT) 25 U/L (8-55); AST (SGOT) 31 U/L (5-34); Albumin 2.6 g/dL (3.4-4.8); Alkaline Phosphatase 147 U/L (40-110); Anion Gap 19 mmol/L (10-20); BUN (Urea Nitrogen) 41 mg/dL (8.4-25.7); Bilirubin, Total 0.6 mg/dL (0.2-1.2); Calc. Creatinine Clearance 46 mL/min (70-130); Calcium 8.5 mg/dL (7.8-10.44); Carbon Dioxide 15 mmol/L (23-31); Chloride 96 mmol/L (98-107); Estimated GFR 33; Globulin 3.9 g/dL (2.4-3.5); Glucose 251 mg/dL (83-110); Potassium 4.6 mmol/L (3.5-5.1); Protein, Total 6.5 g/dL (5.8-8.1); Sodium 125 mmol/L (136-145)
[2023-11-09 12:19] LABS: Troponin I 0.036 ng/mL (< 0.028)
[2023-11-09] MEDS: DOBUTamine 500 mg/250 ml 250 ML IVPB SCH (12:21)
[2023-11-09] MEDS: NOREPINEPHRINE 8 MG/250 ML-D5W 250 ML IVPB SCH (12:21)
[2023-11-09] MEDS: Propofol 1,000 MG/100 ML VIAL IV PRN (12:21)
[2023-11-09] MEDS: DOBUTamine 500 mg/250 ml 250 ML ONE (12:22)
[2023-11-09] MEDS: Propofol 1,000 MG/100 ML VIAL IV ONE (12:22)
[2023-11-09] MEDS: EPINEPHrine 1 MG/10 ML Abboject SYRINGE ONE (12:25)
[2023-11-09 12:27] LABS: Band 12 % (5-11); Burr Cells SLIGHT = 2-5 cells HPF (0-1); Eosinophils 5 % (0-10); Large Platelets 4.9 % (0-5); Lymphocytes 6 % (21-51); Metamyelocyte 2 % (0-0); Monocytes 16 % (0-10); Neutrophil 60 % (42-75); Nucleated RBC (Manual Ct) 3 % (0); Platelet Adequacy Comment Platelets Normal
[2023-11-09] MEDS: Fentanyl CADD 100 ML IV SCH (12:38)
[2023-11-09 12:52] LABS: Magnesium 2.1 mg/dL (1.6-2.6)
[2023-11-09] MEDS: fentaNYL 50 mcg/mL 1 mL Vial SLOW IVP SCH (12:53)
[2023-11-09] MEDS: CALCIUM GLUC 1 GM/NS 50 ML 1 GM in Premix 1 BAG IVPB SCH (13:09)
[2023-11-09] MEDS: Magnesium 2 GM/50 ML(in water) 2 GM in Premix 1 BAG IVPB SCH (13:09)
[2023-11-09] MEDS ORDERED: NOREPINEPHRINE 8 MG/250 ML-D5W 250 ML ONE (14:11)
[2023-11-09] MEDS ORDERED: fentaNYL 50 mcg/mL 1 mL Vial ONE (14:11)
[2023-11-09] MEDS: Furosemide 40 MG (4 mL) VIAL SLOW IVP SCH (15:01)
[2023-11-09 15:16] LABS: A. flavus Negative (Neg:<1:1); A. fumigatus Negative (Neg:<1:1); A. niger Negative (Neg:<1:1)
[2023-11-09] MEDS: Sodium Bicarb 50 mEq/50 ML VIAL IVP SCH (15:35)
[2023-11-09] MEDS: Sodium Bicarb 50 MEQ/50 ML Abboject 8.4% SYRINGE ONE (15:42)
[2023-11-09] MEDS: Sodium Bicarb 50 mEq/50 ML VIAL ONE (15:43)
[2023-11-09] MEDS ORDERED: Carvedilol 6.25 MG TAB PO SCH (17:00)
[2023-11-09 18:24] LABS: BF Color Colorless; Body Fluid Source Bronchial Washings; Clarity Clear (Clear); Tube # EDTA
[2023-11-09 18:37] LABS: BF RBC Count - Manual 169 /cu.mm; BF WBC/Nonhematics Ct.-Manual 130 /cu.mm
[2023-11-09 19:08] LABS: BF Segmented Neutrophils 19 %; Cell Count Non Hematic 78 %; Eosinophils 2 %; Lymphocytes 1 %
[2023-11-10 04:32] LABS: #Basophils 0.04 10x3/uL (0.0-0.2); %Basophils 0.6 % (0.0-1.0); %Eosinophils 7.7 % (0.0-10.0); %Lymphocytes 7.4 % (21.0-51.0); %Monocytes 15.6 % (0.0-10.0); %Neutrophils 66.5 % (42.0-75.0); Hematocrit 31.4 % (42.0-52.0); Hemoglobin 10.1 g/dL (14.0-18.0); Mean Corpuscular HGB CONC 32.2 g/dL (32.0-36.0); Mean Corpuscular Hemoglobin 29.4 pg (27.0-31.0); Mean Corpuscular Volume 91.3 fL (78.0-98.0); Mean Platelet Volume 9.9 fL (7.4-10.4); Platelet Count 376 10x3/uL (130-400); RBC Distribution Width 16.1 % (11.5-14.5); Red Blood Cell (RBC) Count 3.44 mill/uL (4.70-6.10)
[2023-11-10 04:47] LABS: Anion Gap 17 mmol/L (10-20); BUN (Urea Nitrogen) 37 mg/dL (8.4-25.7); Calc. Creatinine Clearance 56 mL/min (70-130); Calcium 8.8 mg/dL (7.8-10.44); Carbon Dioxide 23 mmol/L (23-31); Chloride 97 mmol/L (98-107); Estimated GFR 43; Glucose 82 mg/dL (83-110); Magnesium 2.3 mg/dL (1.6-2.6); Potassium 3.8 mmol/L (3.5-5.1); Sodium 133 mmol/L (136-145)
[2023-11-10] MEDS: Ondansetron PF 4 MG/2 ML Vial IVP PRN (06:49)
[2023-11-10] MEDS ORDERED: Lidocaine 1% PF 5 ML VIAL ONE (07:56)
[2023-11-10] MEDS ORDERED: Sodium Bicarbonate 2.5 MEQ/5 ML SDV ONE (07:56)
[2023-11-10] MEDS: Potassium Chloride 10 MEQ in Premix 1 BAG IVPB SCH ×2 (08:17→09:32)
[2023-11-10] MEDS: Furosemide 40 MG (4 mL) VIAL SLOW IVP SCH (09:32)
[2023-11-10] MEDS: DC Sedation Protocol FS ONE (12:56)
[2023-11-10] MEDS: Ipratropium/Albuterol 3 ML NEB EZPAP SCH (15:23)
[2023-11-10] MEDS ORDERED: NOREPINEPHRINE 8 MG/250 ML-D5W 250 ML IVPB SCH (18:45)
[2023-11-10] MEDS: NOREPINEPHRINE 8 MG/250 ML-D5W 250 ML ONE (20:30)
[2023-11-10] MEDS: Famotidine 20 MG TAB PO SCH (21:07)
[2023-11-11] MEDS: Norepinephrine 16 MG in Dextrose 5% in Water 234 ML IVPB PRN (04:18)
[2023-11-11 04:47] LABS: #Basophils 0.04 10x3/uL (0.0-0.2); %Basophils 0.6 % (0.0-1.0); %Eosinophils 2.8 % (0.0-10.0); %Lymphocytes 8.2 % (21.0-51.0); %Monocytes 18.4 % (0.0-10.0); %Neutrophils 68.5 % (42.0-75.0); Hematocrit 29.2 % (42.0-52.0); Hemoglobin 9.1 g/dL (14.0-18.0); Mean Corpuscular HGB CONC 31.2 g/dL (32.0-36.0); Mean Corpuscular Hemoglobin 29.6 pg (27.0-31.0); Mean Corpuscular Volume 95.1 fL (78.0-98.0); Mean Platelet Volume 9.5 fL (7.4-10.4); Platelet Count 339 10x3/uL (130-400); RBC Distribution Width 16.3 % (11.5-14.5); Red Blood Cell (RBC) Count 3.07 mill/uL (4.70-6.10)
[2023-11-11 05:11] LABS: Anion Gap 15 mmol/L (10-20); BUN (Urea Nitrogen) 38 mg/dL (8.4-25.7); Calc. Creatinine Clearance 50 mL/min (70-130); Calcium 8.7 mg/dL (7.8-10.44); Carbon Dioxide 24 mmol/L (23-31); Chloride 98 mmol/L (98-107); Estimated GFR 41; Glucose 136 mg/dL (83-110); Magnesium 2.2 mg/dL (1.6-2.6); Potassium 4.3 mmol/L (3.5-5.1); Sodium 133 mmol/L (136-145)
[2023-11-11] MEDS ORDERED: Pantoprazole DR 40 MG TAB PO SCH (09:00)
[2023-11-11 09:57] LABS: Iron 17 ug/dL (65-175); Iron Binding Capacity, Total 198 mcg/dL (261-462)
[2023-11-11] MEDS: methylPREDNISolone Sod Succ 40 MG VIAL IVP SCH (12:12)
[2023-11-11] MEDS: Furosemide 20 MG (2 mL) VIAL SLOW IVP SCH (16:53)
[2023-11-12 05:21] LABS: Anion Gap 19 mmol/L (10-20); BUN (Urea Nitrogen) 38 mg/dL (8.4-25.7); Calc. Creatinine Clearance 54 mL/min (70-130); Calcium 8.7 mg/dL (7.8-10.44); Carbon Dioxide 24 mmol/L (23-31); Chloride 97 mmol/L (98-107); Estimated GFR 45; Glucose 176 mg/dL (83-110); Magnesium 2.2 mg/dL (1.6-2.6); Potassium 4.5 mmol/L (3.5-5.1); Sodium 135 mmol/L (136-145)
[2023-11-12 05:23] LABS: #Basophils Less than 0.03 10x3/uL (0.0-0.2); #Eosinphils Less than 0.03 10x3/uL (0.0-0.7); %Basophils 0.2 % (0.0-1.0); %Lymphocytes 5.1 % (21.0-51.0); %Monocytes 7.5 % (0.0-10.0); %Neutrophils 85.6 % (42.0-75.0); Hematocrit 32.5 % (42.0-52.0); Hemoglobin 10.5 g/dL (14.0-18.0); Mean Corpuscular HGB CONC 32.3 g/dL (32.0-36.0); Mean Corpuscular Hemoglobin 29.3 pg (27.0-31.0); Mean Corpuscular Volume 90.8 fL (78.0-98.0); Mean Platelet Volume 9.6 fL (7.4-10.4); Platelet Count 329 10x3/uL (130-400); RBC Distribution Width 15.9 % (11.5-14.5); Red Blood Cell (RBC) Count 3.58 mill/uL (4.70-6.10)
[2023-11-12] MEDS: methylPREDNISolone Sod Succ 40 MG VIAL IVP SCH (08:02)
[2023-11-12] MEDS: Cefdinir 300 MG CAP PO SCH (09:46)
[2023-11-12] MEDS ORDERED: Insulin Regular, Human 100 UNIT/ML 10 ML VIAL SC PRN (10:37)
[2023-11-12] MEDS: Insulin Regular, Human 100 UNIT/ML 10 ML VIAL SC PRN (10:43)
[2023-11-13 04:59] LABS: Calcium 8.7 mg/dL (7.8-10.44); Chloride 97 mmol/L (98-107); Glucose 234 mg/dL (83-110); Potassium 4.8 mmol/L (3.5-5.1); Sodium 135 mmol/L (136-145)
[2023-11-13 05:00] LABS: Anion Gap 18 mmol/L (10-20); BUN (Urea Nitrogen) 36 mg/dL (8.4-25.7); Calc. Creatinine Clearance 54 mL/min (70-130); Carbon Dioxide 25 mmol/L (23-31); Estimated GFR 44; Magnesium 2.4 mg/dL (1.6-2.6)
[2023-11-13 05:37] LABS: %Neutrophils 83.1 % (42.0-75.0); Hemoglobin 10.3 g/dL (14.0-18.0); Mean Corpuscular HGB CONC 32.2 g/dL (32.0-36.0); Mean Corpuscular Hemoglobin 30.2 pg (27.0-31.0); Mean Corpuscular Volume 93.8 fL (78.0-98.0); Mean Platelet Volume 9.5 fL (7.4-10.4); Platelet Count 336 10x3/uL (130-400); RBC Distribution Width 15.9 % (11.5-14.5); Red Blood Cell (RBC) Count 3.41 mill/uL (4.70-6.10)
[2023-11-13 05:38] LABS: #Basophils Less than 0.03 10x3/uL (0.0-0.2); #Eosinphils Less than 0.03 10x3/uL (0.0-0.7); %Lymphocytes 5.1 % (21.0-51.0)
[2023-11-13] MEDS: Insulin Glargine 30 UNITS/0.3 ML VIAL SC SCH (10:44)
[2023-11-14 06:20] LABS: #Basophils Less than 0.03 10x3/uL (0.0-0.2); #Eosinphils Less than 0.03 10x3/uL (0.0-0.7); %Basophils 0.2 % (0.0-1.0); %Lymphocytes 7.9 % (21.0-51.0); %Monocytes 10.4 % (0.0-10.0); %Neutrophils 78.2 % (42.0-75.0); Hematocrit 31.5 % (42.0-52.0); Mean Corpuscular HGB CONC 31.7 g/dL (32.0-36.0); Mean Corpuscular Hemoglobin 29.2 pg (27.0-31.0); Mean Corpuscular Volume 92.1 fL (78.0-98.0); Mean Platelet Volume 9.4 fL (7.4-10.4); Platelet Count 315 10x3/uL (130-400); RBC Distribution Width 15.6 % (11.5-14.5); Red Blood Cell (RBC) Count 3.42 mill/uL (4.70-6.10)
[2023-11-14 07:14] LABS: Anion Gap 14 mmol/L (10-20); BUN (Urea Nitrogen) 40 mg/dL (8.4-25.7); Calc. Creatinine Clearance 59 mL/min (70-130); Calcium 8.6 mg/dL (7.8-10.44); Carbon Dioxide 26 mmol/L (23-31); Chloride 98 mmol/L (98-107); Estimated GFR 50; Glucose 234 mg/dL (83-110); Magnesium 2.5 mg/dL (1.6-2.6); Potassium 4.8 mmol/L (3.5-5.1); Sodium 133 mmol/L (136-145)
[2023-11-14] MEDS: Bumetanide 1 MG TAB PO SCH (08:29)
[2023-11-14] MEDS: Insulin Glargine 30 UNITS/0.3 ML VIAL SC SCH (08:30)
[2023-11-15 08:05] LABS: Hematocrit 32.9 % (42.0-52.0); Hemoglobin 10.5 g/dL (14.0-18.0); Mean Corpuscular HGB CONC 31.9 g/dL (32.0-36.0); Mean Corpuscular Hemoglobin 29.8 pg (27.0-31.0); Mean Corpuscular Volume 93.5 fL (78.0-98.0); Mean Platelet Volume 9.5 fL (7.4-10.4); Platelet Count 307 10x3/uL (130-400); RBC Distribution Width 15.7 % (11.5-14.5); Red Blood Cell (RBC) Count 3.52 mill/uL (4.70-6.10)
[2023-11-15 08:08] LABS: Anion Gap 16 mmol/L (10-20); BUN (Urea Nitrogen) 46 mg/dL (8.4-25.7); Calc. Creatinine Clearance 53 mL/min (70-130); Calcium 8.9 mg/dL (7.8-10.44); Carbon Dioxide 26 mmol/L (23-31); Chloride 96 mmol/L (98-107); Estimated GFR 44; Glucose 213 mg/dL (83-110); Magnesium 2.3 mg/dL (1.6-2.6); Potassium 4.8 mmol/L (3.5-5.1); Sodium 133 mmol/L (136-145)
[2023-11-15 08:15] LABS: Band 1 % (5-11); Lymphocytes 4 % (21-51); Monocytes 9 % (0-10); Neutrophil 86 % (42-75); Platelet Adequacy Comment Platelets Normal; RBC Morphology Within Normal Limits
[2023-11-15] MEDS: predniSONE 20 MG TAB PO SCH (08:16)
[2023-11-15] MEDS: Carvedilol 6.25 MG TAB PO SCH ×2 (08:36→19:52)
[2023-11-15 08:38] LABS: Aspergillus fumigatus Negative (Negative); Aureobasidium pullalans IgG Negative (Negative); Micropolyspora faeni Negative (Negative); Pigeon Droppings IgG Negative (Negative); T vulgaris Negative (Negative)
[2023-11-15] MEDS: OZEMPIC 2 MG SC SCH (18:14)
[2023-11-16 05:35] LABS: #Basophils Less than 0.03 10x3/uL (0.0-0.2); #Eosinphils Less than 0.03 10x3/uL (0.0-0.7); %Basophils 0.2 % (0.0-1.0); %Eosinophils 0.2 % (0.0-10.0); %Lymphocytes 12.1 % (21.0-51.0); %Monocytes 11.9 % (0.0-10.0); %Neutrophils 70.9 % (42.0-75.0); Hemoglobin 10.8 g/dL (14.0-18.0); Mean Corpuscular HGB CONC 31.8 g/dL (32.0-36.0); Mean Corpuscular Volume 94.4 fL (78.0-98.0); Mean Platelet Volume 9.2 fL (7.4-10.4); Platelet Count 315 10x3/uL (130-400); RBC Distribution Width 16.1 % (11.5-14.5)
[2023-11-16 06:11] LABS: Anion Gap 12 mmol/L (10-20); BUN (Urea Nitrogen) 49 mg/dL (8.4-25.7); Calc. Creatinine Clearance 45 mL/min (70-130); Calcium 9.3 mg/dL (7.8-10.44); Carbon Dioxide 28 mmol/L (23-31); Chloride 99 mmol/L (98-107); Estimated GFR 36; Glucose 200 mg/dL (83-110); Magnesium 2.4 mg/dL (1.6-2.6); Potassium 4.8 mmol/L (3.5-5.1); Sodium 134 mmol/L (136-145)
[2023-11-16] MEDS: Isosorbide Dinitrate 5 MG TAB PO SCH (09:48)
[2023-11-16] MEDS: DOBUTamine 500 mg/250 ml 250 ML IVPB SCH (10:03)
[2023-11-16] MEDS: hydrALAZINE 10 MG TAB PO SCH (12:56)
[2023-11-17 05:47] LABS: Anion Gap 16 mmol/L (10-20); BUN (Urea Nitrogen) 48 mg/dL (8.4-25.7); Calc. Creatinine Clearance 51 mL/min (70-130); Calcium 9.4 mg/dL (7.8-10.44); Carbon Dioxide 25 mmol/L (23-31); Chloride 99 mmol/L (98-107); Estimated GFR 40; Glucose 161 mg/dL (83-110); Magnesium 2.1 mg/dL (1.6-2.6); Potassium 4.4 mmol/L (3.5-5.1); Sodium 136 mmol/L (136-145)
[2023-11-17] MEDS: Lactated Ringer's 500 ML IV SCH (09:48)
[2023-11-17] MEDS: Magnesium 2 GM/50 ML(in water) 2 GM in Premix 1 BAG IVPB SCH (10:06)
[2023-11-17 17:29] VITALS: BMI 35.9
[2023-11-18 07:15] LABS: Anion Gap 13 mmol/L (10-20); BUN (Urea Nitrogen) 41 mg/dL (8.4-25.7); Calc. Creatinine Clearance 52 mL/min (70-130); Calcium 9.5 mg/dL (7.8-10.44); Carbon Dioxide 27 mmol/L (23-31); Chloride 97 mmol/L (98-107); Estimated GFR 41; Glucose 151 mg/dL (83-110); Potassium 4.3 mmol/L (3.5-5.1); Sodium 133 mmol/L (136-145)
[2023-11-18] MEDS: Sacubitril 24MG/Valsartan 26 MG TAB PO SCH (08:20)
[2023-11-18] MEDS: Magnesium 2 GM/50 ML(in water) 2 GM in Premix 1 BAG IVPB SCH (08:46)
[2023-11-19 01:21] VITALS: BP 140/88
[2023-11-19 05:08] LABS: #Basophils Less than 0.03 10x3/uL (0.0-0.2); %Eosinophils 1.8 % (0.0-10.0); %Monocytes 9.3 % (0.0-10.0); %Neutrophils 78.1 % (42.0-75.0); Hematocrit 34.9 % (42.0-52.0); Hemoglobin 11.2 g/dL (14.0-18.0); Mean Corpuscular HGB CONC 32.1 g/dL (32.0-36.0); Mean Corpuscular Hemoglobin 30.6 pg (27.0-31.0); Mean Corpuscular Volume 95.4 fL (78.0-98.0); Mean Platelet Volume 9.5 fL (7.4-10.4); Platelet Count 329 10x3/uL (130-400); RBC Distribution Width 17.2 % (11.5-14.5); Red Blood Cell (RBC) Count 3.66 mill/uL (4.70-6.10)
[2023-11-19 05:27] LABS: Anion Gap 14 mmol/L (10-20); BUN (Urea Nitrogen) 34 mg/dL (8.4-25.7); Calc. Creatinine Clearance 60 mL/min (70-130); Calcium 9.5 mg/dL (7.8-10.44); Carbon Dioxide 24 mmol/L (23-31); Chloride 98 mmol/L (98-107); Estimated GFR 49; Glucose 177 mg/dL (83-110); Magnesium 2.1 mg/dL (1.6-2.6); Potassium 4.3 mmol/L (3.5-5.1); Sodium 132 mmol/L (136-145)
[2023-11-19 07:08] VITALS: BMI 35.9
[2023-11-19] MEDS: Loperamide HCl 2 MG CAP PO PRN (09:15)
[2023-11-19 12:41] VITALS: TEMP 98.1
== END 2023-11-19 15:15 | disposition home or self-care (01) | DRG 208 ==
LOC: ERS 11:38 → MSONC 16:37 → 2NO 11-02 15:55 → CCU 11-09 10:43
PROVIDERS: ADMIT Internal Medicine; ATTEND Internal Medicine
PROC: 5A1945Z Respiratory Ventilation, 24-96 Consecutive Hours (ICD-10-PCS; 2023-11-09)
PROC: 4A033R1 Measurement of Arterial Saturation, Peripheral, Percutaneous Approach (ICD-10-PCS; 2023-11-09)
PROC: 3E033XZ Introduction of Vasopressor into Peripheral Vein, Percutaneous Approach (ICD-10-PCS; 2023-11-09)
PROC: 5A09457 Assistance with Respiratory Ventilation, 24-96 Consecutive Hours, Continuous Positive Airway Pressure (ICD-10-PCS; 2023-11-09)
PROC: 0BJ08ZZ Inspection of Tracheobronchial Tree, Via Natural or Artificial Opening Endoscopic (ICD-10-PCS; 2023-11-09)
PROC: 0BH17EZ Insertion of Endotracheal Airway into Trachea, Via Natural or Artificial Opening (ICD-10-PCS; 2023-11-09)
PROC: 02HV33Z Insertion of Infusion Device into Superior Vena Cava, Percutaneous Approach (ICD-10-PCS; 2023-11-10)
PROC: 30233N1 Transfusion of Nonautologous Red Blood Cells into Peripheral Vein, Percutaneous Approach (ICD-10-PCS; principal; 2023-11-11)
DX: J18.9 Pneumonia, unspecified organism (principal); G93.41 Metabolic encephalopathy; I50.23 Acute on chronic systolic (congestive) heart failure; I46.9 Cardiac arrest, cause unspecified; J80 Acute respiratory distress syndrome; D84.9 Immunodeficiency, unspecified; E87.1 Hypo-osmolality and hyponatremia; I13.0 Hypertensive heart and chronic kidney disease with heart failure and stage 1 through stage 4 chronic kidney disease, or unspecified chronic kidney disease; Z94.4 Liver transplant status; I42.8 Other cardiomyopathies; I44.2 Atrioventricular block, complete; I48.20 Chronic atrial fibrillation, unspecified; N18.30 Chronic kidney disease, stage 3 unspecified; E78.5 Hyperlipidemia, unspecified; Z79.01 Long term (current) use of anticoagulants; Z79.899 Other long term (current) drug therapy; G47.33 Obstructive sleep apnea (adult) (pediatric); Z98.890 Other specified postprocedural states; Z98.49 Cataract extraction status, unspecified eye; D63.1 Anemia in chronic kidney disease; I50.9 Heart failure, unspecified
CPT/HCPCS: 36415; 36416; 36430; 36569; 71045; 71046; 71250; 74230; 76937; 77001; 80048; 80053; 80195; 80202; 80400; 82728; 82805; 83540; 83550; 83605; 83735; 83880; 84145; 84484; 85025; 85060; 85379; 86141; 86331; 86602; 86606; 86612; 86671; 86713; 86850; 86900; 86901; 87040; 87070; 87081; 87102; 87116; 87205; 87206; 87324; 87449; 87497; 87505; 87633; 87899; 88112; 88305; 88312; 89051; 93005; 93010; 93306; 94002; 94003; 94640; 96365; 96367; C1751; J0171; J0456; J0461; J0613; J0692; J0834; J1250; J1815; J1940; J2260; J2405; J2704; J2760; J2920; J3010; J3370; J3370-JW; J3475; J3480; J3490; J7050; J7070; J7512; J7517; J7520; J7620; P9016; U0002

== ENCOUNTER 2023-11-25 15:08 | Emergency (ER) | payer BC, MEDICARE ==
[2023-11-25] MEDS ORDERED: Sodium Bicarbonate 2.5 MEQ/5 ML SDV ONE (16:06)
[2023-11-25] MEDS ORDERED: Lidocaine 1% PF 5 ML VIAL ONE (16:06)
== END 2023-11-26 00:11 | disposition home or self-care (01) ==
LOC: ERS 15:08
DX: Z45.2 Encounter for adjustment and management of vascular access device (principal); E11.9 Type 2 diabetes mellitus without complications; Z79.4 Long term (current) use of insulin; I10 Essential (primary) hypertension; Z87.891 Personal history of nicotine dependence
CPT/HCPCS: 36569; 76937; 77001; 99283